=== PATIENT | female | born 1985 | race Caucasian/White ===

== ENCOUNTER 2016-08-04 19:57 | Inpatient (IN) | payer SELFPAY ==
[~2016-08-04] VITALS: Ht 165.1 cm; Wt 59.0 kg
[2016-08-04 20:38] LABS: OBC FLU VALID
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
[2016-08-04] MEDS ORDERED: ACETAMINOPHEN 500 MG TABLET PO ONE (21:30)
[2016-08-04] MEDS ORDERED: IV NORMAL SALINE 1000ML BAG 1,000 ML IV SCH (21:30)
[2016-08-04] MEDS ORDERED: ONDANSETRON PF 4 MG/2 ML VIAL. IV ONE (21:30)
[2016-08-04] MEDS ORDERED: CONTRAST GIVEN MC PRN (21:30)
[2016-08-04] MEDS ORDERED: IOHEXOL 300 MG/ML 75 ML VIAL IV ONE (21:30)
[2016-08-04] MEDS ORDERED: MORPHINE SULFATE 4 MG/ML DISP.SYRIN. IV ONE ×2 (21:30→23:00)
[2016-08-04 21:42] LABS: BILIRUBIN,URINE NEGATIVE (NEG); GLUCOSE,URINE NEGATIVE (NEG); NITRITE,URINE POSITIVE (NEG); PROTEIN,URINE 30 mg/dL (NEG-TRACE)
[2016-08-04 21:51] LABS: BACTERIA,URINE MANY /HPF (0-FEW); RBC,URINE RARE /HPF (0-2); SQUAMOUS EPITHELIAL CELL,UR FEW /LPF; WBC,URINE >40 /HPF (0-4)
[2016-08-04 22:14] LABS: BASO % 1 % (0-3); EOS % 0 % (0-3); LYMPH % 13 % (24-48); MEAN CORPUSCULAR HEMOGLOBIN 35 pg (25-35); MEAN CORPUSCULAR HGB CONC 34 g/dL (31-37); MEAN CORPUSCULAR VOLUME 103 fL (79-100); MONO % 12 % (0-9); NEUT % 74 % (31-73); PLATELET COUNT 38 x10^3/uL (140-400); RED BLOOD COUNT 1.64 x10^6/uL (3.50-5.40); RED CELL DISTRIBUTION WIDTH 17.2 % (11.5-14.5); WHITE BLOOD COUNT 7.1 x10^3/uL (4.0-11.0)
[2016-08-04 22:16] LABS: HEMATOCRIT 16.9 % (36.0-47.0); HEMOGLOBIN 5.8 g/dL (12.0-15.5)
[2016-08-04] MEDS ORDERED: CEFTRIAXONE 1GM IVPB FOR OMNI 50 ML IV ONE (22:30)
[2016-08-04 22:44] LABS: CALCIUM 8.2 mg/dL (8.5-10.1); CREATININE 2.9 mg/dL (0.6-1.0); GFR 19.3; POTASSIUM 5.4 mmol/L (3.5-5.1)
[2016-08-04 22:49] LABS: ALBUMIN 1.9 g/dL (3.4-5.0); ALBUMIN/GLOBULIN RATIO 0.5 (1.0-1.7); TOTAL BILIRUBIN 0.6 mg/dL (0.2-1.0); TOTAL PROTEIN 6.1 g/dL (6.4-8.2)
[2016-08-04 22:55] LABS: ANISOCYTOSIS SLIGHT; HYPOCHROMIA SLIGHT; OVALOCYTES FEW; POIKILOCYTOSIS SLIGHT; TOXIC GRANULATION SLIGHT
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
[2016-08-04] MEDS ORDERED: AZITHRMYCN 500MG IVPB FOR OMNI 250 ML IV ONE (23:55)
[2016-08-05] VITALS (14 sets, daily range): BP systolic 86–133; BP diastolic 39–63
--- NOTE | 2016-08-05 00:30 | ACF ---
Admit Criteria Forms Admit Criteria Forms Admit Criteria Forms ANEMIA Clinical Indications for Inpatient Care (Place 'X' for any and all applicable criteria) Ongoing inpatient care may be needed for anemia with 1 or more of the following (1)(2)(3)(4)(18)(37): [X]I. Severe signs or symptoms unresponsive to transfusion or volume replacement, including ANY ONE of the following: []a) Heart failure []b) Chest pain []c) Myocardial ischemia []d) Exertional dyspnea []e) Syncope []f) Acute peripheral ischemia (eg, pulseless, cool, mottled, or cyanotic extremity) [X]g) Other severe signs or symptoms []II. Cognitive impairment []III. Active hemorrhage []IV.Active hemolysis with rapidly progressive anemia []V. Hemodynamic instability Extended stay beyond goal length of stay for the primary condition may be needed until ALL of the following are present (1)(2)(3)(4): []a) Hemodynamic stability []b) Any active blood loss controlled []c) Severe signs or symptoms resolved []d) Mental status normal or at baseline []e) Stable hemoglobin after transfusion []f) Any underlying disorder or complications of treatment controlled The original [employer] content created by [employer] has been revised. The portions of the content which have been revised are identified through the use of italic text or in bold, and [employer] has neither reviewed nor approved the modified material. All other unmodified content is copyright [employer]. Please see references footnoted in the original [employer] edition 2016 SHAYY SETHI Aug 05, 2016 00:30
[2016-08-05] MEDS: IV NORMAL SALINE 1000ML BAG 1,000 ML IV SCH ×4 (07:31→16:36)
[2016-08-05] MEDS: ACETAMINOPHEN 325 MG TABLET. PO PRN ×2 (07:41→23:34)
[2016-08-05] MEDS: MORPHINE SULFATE 4 MG/ML DISP.SYRIN. IV PRN ×5 (07:41→23:34)
[2016-08-05 10:22] LABS: BARBITURATES NEG (NEG); BENZODIAZEPINES NEG (NEG); CANNABINOIDS NEG (NEG); COCAINE NEG (NEG); METHADONE POS (NEG); OPIATES POS (NEG); PHENCYCLIDINE NEG (NEG)
[2016-08-05 10:40] LABS: ETHANOL, URINE NEG (NEG)
[2016-08-05 11:00] LABS: BASO # 0.1 x10^3/uL (0.0-0.2); BASO % 1 % (0-3); EOS % 0 % (0-3); HEMATOCRIT 26.1 % (36.0-47.0); HEMOGLOBIN 8.9 g/dL (12.0-15.5); LYMPH # 0.5 x10^3/uL (1.0-4.8); LYMPH % 6 % (24-48); MEAN CORPUSCULAR HEMOGLOBIN 32 pg (25-35); MEAN CORPUSCULAR HGB CONC 34 g/dL (31-37); MEAN CORPUSCULAR VOLUME 95 fL (79-100); MONO % 7 % (0-9); NEUT % 86 % (31-73); PLATELET COUNT 35 x10^3/uL (140-400); RED BLOOD COUNT 2.74 x10^6/uL (3.50-5.40); RED CELL DISTRIBUTION WIDTH 22.3 % (11.5-14.5); WHITE BLOOD COUNT 9.3 x10^3/uL (4.0-11.0)
[2016-08-05 11:10] LABS: CALCIUM 8.5 mg/dL (8.5-10.1); CREATININE 2.7 mg/dL (0.6-1.0); POTASSIUM 4.8 mmol/L (3.5-5.1)
[2016-08-05] MEDS ORDERED: ACETAMINOPHEN 325 MG TABLET. PO PRN (11:15)
[2016-08-05] MEDS ORDERED: ONDANSETRON PF 4 MG/2 ML VIAL. IV PRN ×2 (11:15)
[2016-08-05 12:41] LABS: ALBUMIN 1.7 g/dL (3.4-5.0); DIRECT BILIRUBIN 0.4 mg/dL (0.0-0.2); TOTAL BILIRUBIN 0.7 mg/dL (0.2-1.0); TOTAL PROTEIN 6.4 g/dL (6.4-8.2)
--- NOTE | 2016-08-05 12:50 | EKG ---
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
[2016-08-05] MEDS ORDERED: MAGNESIUM HYDROXIDE 2,400 MG/30 ML ORAL.SUSP. PO PRN (13:15)
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
[2016-08-05 13:49] LABS: INR 1.3 (0.8-1.1)
[2016-08-05 14:19] LABS: NEGATIVE OBC MONO NEG; POSITIVE OBC MONO POS
[2016-08-05] MEDS: PANTOPRAZOLE 40 MG TABLET. PO SCH (14:52)
[2016-08-05] MEDS: CEFTRIAXONE SODIUM 1 GM in IV NORMAL SALINE 50ML 50 ML IV SCH (14:53)
[2016-08-05] MEDS: OXYCODONE/APAP 5/325 TABLET. PO PRN (15:07)
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
[2016-08-06] VITALS (7 sets, daily range): BP systolic 84–120; BP diastolic 48–70
[2016-08-06] MEDS: IV NORMAL SALINE 1000ML BAG 1,000 ML IV SCH ×2 (04:22→17:15)
[2016-08-06 05:23] LABS: BASO % 1 % (0-3); EOS % 1 % (0-3); HEMATOCRIT 24.2 % (36.0-47.0); HEMOGLOBIN 8.2 g/dL (12.0-15.5); LYMPH # 1.2 x10^3/uL (1.0-4.8); LYMPH % 16 % (24-48); MEAN CORPUSCULAR HEMOGLOBIN 32 pg (25-35); MEAN CORPUSCULAR HGB CONC 34 g/dL (31-37); MEAN CORPUSCULAR VOLUME 96 fL (79-100); MONO % 9 % (0-9); NEUT % 73 % (31-73); PLATELET COUNT 33 x10^3/uL (140-400); RED BLOOD COUNT 2.53 x10^6/uL (3.50-5.40); RED CELL DISTRIBUTION WIDTH 22.9 % (11.5-14.5); WHITE BLOOD COUNT 7.2 x10^3/uL (4.0-11.0)
[2016-08-06 05:52] LABS: CALCIUM 8.1 mg/dL (8.5-10.1); CREATININE 2.2 mg/dL (0.6-1.0); GFR 26.6; POTASSIUM 5.1 mmol/L (3.5-5.1)
[2016-08-06] MEDS: PANTOPRAZOLE 40 MG TABLET. PO SCH (08:42)
[2016-08-06] MEDS: OXYCODONE/APAP 5/325 TABLET. PO PRN ×3 (08:50→18:08)
--- NOTE | 2016-08-06 09:21 | PDOC ---
Subjective: Subjective: Onc f/u- Cytopenias Pt frantic this AM, states she normally goes to methadone clinic, is withdrawing. Wants to DC. States she has to go to work and methadone clinic. SOB continues. Palpitations. Agitated. Objective: Vital Signs: Vital Signs Date Time Temp Pulse Resp B/P Pulse Ox O2 Delivery O2 Flow Rate FiO2 08/06/16 08:50 Room Air 08/06/16 03:24 98.5 80 20 98/56 95 98.5 08/05/16 20:00 2.0 Physical Exam: Extremities: No edema General: Alert, Oriented X3, moderate distress (due to withdrawl from methadone ) Lungs: Other (tachypnea with withdrawl) Psych/Mental Status: Other (anxious, agitated) Labs/Imaging: CBC stable Hgb 5.8 --> 8.9 Plt 38 stable INR, fibrinogen doesn't indicate hemolysis No previous CBC at [facility] U/S- 14.5 cm spleen Assessment/Plan A/P: 1. Anemia s/p transfusion 2 units PRBC 08/05- stable 2. Thrombocytopenia- stable 3. Chronic HCV infection 4. Hepatosplenomegaly 5. VERNON 6. Bilateral pneumonia 7. E coli UTI 9. Methadone addiction, currently with likely withdrawal symptoms Cytopenias likely multifactorial with hepatosplenomegaly, HCV, acute infections. Pt states she has to leave today; very frantic to get to methadone clinic. Plan: - F/u pending HIV, legionella, B12, folate testing - F/u pending ID consult. Pt requesting po abx to DC today. - D/w Dr. Mcgovern re: methadone use, withdrawal. [facility] consult placed to verify her admission with her methadone clinic. - Ideally would repeat CBC in 2 weeks, but pt uninsured, will not f/u. DONY OWUSU DO Aug 06, 2016 09:21
--- NOTE | 2016-08-06 10:01 | PDOC ---
Subjective: Subjective: Abd pain, back pain, chest pain. Objective: Objective: Per [facility] - to restart methadone. Reviewed other notes. Vital Signs: Vital Signs Date Time Temp Pulse Resp B/P Pulse Ox O2 Delivery O2 Flow Rate FiO2 08/06/16 08:50 Room Air 08/06/16 07:00 98.5 84 20 114/65 89 98.5 08/05/16 20:00 2.0 Labs: Laboratory Tests Test 08/05/16 10:00 08/05/16 10:44 08/05/16 13:10 08/06/16 05:05 Urine Opiates Screen Pos Urine Methadone Screen Pos Urine Barbiturates Neg Urine Phencyclidine Screen Neg Urine Amphetamine/Methamphetamine Neg Urine Benzodiazepines Screen Neg Urine Cocaine Screen Neg Urine Cannabinoids Screen Neg Urine Ethyl Alcohol Neg White Blood Count 9.3x10^3/uL 7.2x10^3/uL Red Blood Count 2.74x10^6/uL 2.53x10^6/uL Hemoglobin 8.9g/dL 8.2g/dL Hematocrit 26.1% 24.2% Mean Corpuscular Volume 95fL 96fL Mean Corpuscular Hemoglobin 32pg 32pg Mean Corpuscular Hemoglobin Concent 34g/dL 34g/dL Red Cell Distribution Width 22.3% 22.9% Platelet Count 35x10^3/uL 33x10^3/uL Neutrophils (%) (Auto) 86% 73% Lymphocytes (%) (Auto) 6% 16% Monocytes (%) (Auto) 7% 9% Eosinophils (%) (Auto) 0% 1% Basophils (%) (Auto) 1% 1% Neutrophils # (Auto) 8.0x10^3uL 5.3x10^3uL Lymphocytes # (Auto) 0.5x10^3/uL 1.2x10^3/uL Monocytes # (Auto) 0.7x10^3/uL 0.7x10^3/uL Eosinophils # (Auto) 0.0x10^3/uL 0.0x10^3/uL Basophils # (Auto) 0.1x10^3/uL 0.0x10^3/uL Reticulocyte Count (auto) 0.2% Sodium Level 137mmol/L 139mmol/L Potassium Level 4.8mmol/L 5.1mmol/L Chloride Level 106mmol/L 108mmol/L Carbon Dioxide Level 23mmol/L 21mmol/L Anion Gap 8 10 Blood Urea Nitrogen 54mg/dL 36mg/dL Creatinine 2.7mg/dL 2.2mg/dL Estimated GFR (Cockcroft-Gault) 21.0 26.6 Glucose Level 98mg/dL 80mg/dL Calcium Level 8.5mg/dL 8.1mg/dL Total Bilirubin 0.7mg/dL Direct Bilirubin 0.4mg/dL Aspartate Amino Transf (AST/SGOT) 17U/L Alanine Aminotransferase (ALT/SGPT) 17U/L Alkaline Phosphatase 154U/L Lactate Dehydrogenase 192U/L Total Protein 6.4g/dL Albumin 1.7g/dL Heterophil Agglutinins Negative Prothrombin Time 15.0SEC Prothromb Time International Ratio 1.3 Activated Partial Thromboplast Time 29SEC Fibrinogen 603mg/dL PE: GEN: NAD LUNGS: clear anteriorly HEART: RRR ABD: BS quiet, non-tender for my exam NEURO/PSYCH: A & O 3, nervous A/P: Anemia, thrombocytopenia -heme following: pending HIV, legionella, B12, folate H/o Hep C - incompletely treated -on methadone, says recovering heroin addict Constipation - recent onset -will add Miralax and Amitiza Abd pain -also reports back and chest pain -lipase WNL, on PPI -CT w/o contrast: splenomegaly; previous US per heme notes VERNON, pneumonia, UTI -- Add Miralax, Amitiza for constipation. Await additional labs. DEEPTI CHAPARRO Aug 06, 2016 10:01
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
[2016-08-06] MEDS: METHADONE 10 MG TABLET. PO SCH (10:39)
[2016-08-06] MEDS: POLYETHYLENE GLYCOL 3350 17 GM PACKET. PO SCH (10:39)
[2016-08-06 11:46] LABS: FOLATE 9.52 ng/ml (3.2-20.0)
[2016-08-06] MEDS: CEFTRIAXONE SODIUM 1 GM in IV NORMAL SALINE 50ML 50 ML IV SCH (15:05)
[2016-08-06] MEDS: LUBIPROSTONE 8 MCG CAPSULE PO SCH (18:08)
[2016-08-06 23:11] LABS: HEP A IGM ABDY Negative (Negative)
[2016-08-06 23:11] LABS: HEP A IGM ABDY Negative (Negative); HEP B SURFACE ABDY Reactive (.)
[2016-08-07] VITALS (8 sets, daily range): BP systolic 99–125; BP diastolic 54–80
[2016-08-07] MEDS: OXYCODONE/APAP 5/325 TABLET. PO PRN (03:01)
[2016-08-07] MEDS: IV NORMAL SALINE 1000ML BAG 1,000 ML IV SCH ×2 (03:15→13:15)
[2016-08-07 05:16] LABS: BASO # 0.1 x10^3/uL (0.0-0.2); BASO % 1 % (0-3); EOS % 0 % (0-3); HEMATOCRIT 24.7 % (36.0-47.0); HEMOGLOBIN 8.4 g/dL (12.0-15.5); LYMPH # 1.4 x10^3/uL (1.0-4.8); LYMPH % 20 % (24-48); MEAN CORPUSCULAR HEMOGLOBIN 33 pg (25-35); MEAN CORPUSCULAR HGB CONC 34 g/dL (31-37); MEAN CORPUSCULAR VOLUME 96 fL (79-100); MONO % 7 % (0-9); NEUT % 72 % (31-73); PLATELET COUNT 33 x10^3/uL (140-400); RED BLOOD COUNT 2.57 x10^6/uL (3.50-5.40); RED CELL DISTRIBUTION WIDTH 22.4 % (11.5-14.5)
[2016-08-07 05:44] LABS: CALCIUM 8.3 mg/dL (8.5-10.1); CREATININE 1.9 mg/dL (0.6-1.0); GFR 31.5; POTASSIUM 4.3 mmol/L (3.5-5.1)
[2016-08-07] MEDS: POLYETHYLENE GLYCOL 3350 17 GM PACKET. PO SCH (09:00)
[2016-08-07] MEDS ORDERED: LIDOCAINE 1% / SOD BICARB 8.4% 20 ML VIAL. IJ ONE ×2 (09:07→13:00)
--- NOTE | 2016-08-07 10:15 | PDOC ---
Subjective: Subjective: Onc f/u- Cytopenias Pt still wanting to DC. No issues overnight. More relaxed now that back on methadone. Objective: Vital Signs: Vital Signs Date Time Temp Pulse Resp B/P Pulse Ox O2 Delivery O2 Flow Rate FiO2 08/07/16 07:00 98.3 88 18 114/62 96 Room Air 98.3 08/07/16 03:01 2.0 Physical Exam: Extremities: No edema General: Alert, Oriented X3, Cooperative, No acute distress Lungs: Other (no resp dsitress) Psych/Mental Status: Mental status NL, Mood NL Skin: No rashes Labs/Imaging: CBC unchanged HIV, legionella, b12, folate neg Assessment/Plan A/P: 1. Anemia s/p transfusion 2 units PRBC 08/05- stable 2. Thrombocytopenia- stable 3. Chronic HCV infection 4. Hepatosplenomegaly 5. VERNON 6. Bilateral pneumonia 7. E coli UTI 8. Methadone addiction, attends clinic as outpt Cytopenias likely multifactorial with hepatosplenomegaly, HCV, acute infections. However, eval as outpt will be very limited due to insurance status. Would prefer to be thorough and proceed with bmbx as inpt. Plan: - Bmbx tomorrow, pt drank this AM. - Outpt HCV tx? Defer to GI. - Suspect no underlying bmbx path however so when stabilizes from others' standpoints, ok with me to DC and I can call her with results. DONY OWUSU DO Aug 07, 2016 10:15
[2016-08-07] MEDS: PANTOPRAZOLE 40 MG TABLET. PO SCH (10:26)
[2016-08-07] MEDS: METHADONE 10 MG TABLET. PO SCH (10:27)
[2016-08-07] MEDS: LUBIPROSTONE 8 MCG CAPSULE PO SCH (10:27)
--- NOTE | 2016-08-07 11:55 | PDOC ---
Subjective: Subjective: Feels better. Plans to DC after bone marrow biopsy. Had BM. Says previously started Hep C treatment at a free clinic in [place]. Objective: Vital Signs: Vital Signs Date Time Temp Pulse Resp B/P Pulse Ox O2 Delivery O2 Flow Rate FiO2 08/07/16 11:00 98.8 74 17 117/74 96 Room Air 98.8 08/07/16 03:01 2.0 Labs: Laboratory Tests Test 08/07/16 05:00 White Blood Count 7.0x10^3/uL Red Blood Count 2.57x10^6/uL Hemoglobin 8.4g/dL Hematocrit 24.7% Mean Corpuscular Volume 96fL Mean Corpuscular Hemoglobin 33pg Mean Corpuscular Hemoglobin Concent 34g/dL Red Cell Distribution Width 22.4% Platelet Count 33x10^3/uL Neutrophils (%) (Auto) 72% Lymphocytes (%) (Auto) 20% Monocytes (%) (Auto) 7% Eosinophils (%) (Auto) 0% Basophils (%) (Auto) 1% Neutrophils # (Auto) 5.1x10^3uL Lymphocytes # (Auto) 1.4x10^3/uL Monocytes # (Auto) 0.5x10^3/uL Eosinophils # (Auto) 0.0x10^3/uL Basophils # (Auto) 0.1x10^3/uL Sodium Level 138mmol/L Potassium Level 4.3mmol/L Chloride Level 106mmol/L Carbon Dioxide Level 19mmol/L Anion Gap 13 Blood Urea Nitrogen 22mg/dL Creatinine 1.9mg/dL Estimated GFR (Cockcroft-Gault) 31.5 Glucose Level 77mg/dL Calcium Level 8.3mg/dL PE: GEN: NAD LUNGS: CTAB HEART: RRR ABD: NABS, S/ND/NT NEURO/PSYCH: A & O 3 A/P: Anemia, thrombocytopenia -heme following -low retic count, to have bone marrow bx today H/o Hep C -reports started but did not complete treatment at free clinic in [place] -hepatosplenomegaly on CT Constipation - resolved Abd pain - resolved -- Discussed Hep C treatment - she says she plans to return to the same clinic in [place] for this. DEEPTI CHAPARRO Aug 07, 2016 11:55
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
[2016-08-07] MEDS ORDERED: NALOXONE 0.4 MG/ML VIAL. ONE (12:31)
[2016-08-07] MEDS ORDERED: MIDAZOLAM HCL/PF 5 MG/5 ML VIAL ONE (12:31)
[2016-08-07] MEDS ORDERED: FENTANYL PF 250 MCG/5 ML VIAL. ONE (12:31)
[2016-08-07] MEDS ORDERED: FLUMAZENIL 0.5 MG/5 ML VIAL. IV ONE (12:31)
[2016-08-07] MEDS ORDERED: MIDAZOLAM HCL/PF 5 MG/5 ML VIAL IV ONE (13:00)
[2016-08-07] MEDS ORDERED: FENTANYL PF 250 MCG/5 ML VIAL. IV ONE (13:00)
--- NOTE | 2016-08-07 13:03 | PDOC ---
MODERATE SEDATION ASSESSMENT RISKS/ALTERNATIVES Risks/Alternatives Risks and alternatives of this type of sedation and procedure discussed with: RISK/ALTERNATIVES: Patient H & P ON CHART H & P H & P on chart and reviewed for co-morbid conditions and appropriate labs. H&P ON CHART: Yes STATUS PREG STATUS ASSESSED: Yes MEDS/ALLERGIES REVIEWED Meds/Allergies Reviewed Medications and Allergies including time and route of recently administered narcotics and sedatives. MEDS/ALLERGIES REVIEWED: Yes ASA RATING ASA RATING: I AIRWAY ASSESSMENT Airway Assessment Airway patency, oral function limitations, presence of caps, crowns, dentures, partials, and ability to extend neck assessed. AIRWAY ASSESSMENT: Yes MALLAMPATI SCORE MALLAMPATI SCORE: II PRE-SEDATION ASSESSMENT PRE-SEDATION ASSESSMENT: Yes JUDITH LITTLEJOHN MD Aug 07, 2016 13:03
--- NOTE | 2016-08-07 13:06 | PDOC ---
Exam Repair Servicer Repair Servicer Jessi [employer] Equipment Operator [employer] Equipment Operator Dayne Lemus Pre-Procedure Diagnosis Pre-Procedure Diagnosis 30 YO female with pancytopenia Post-Procedure Diagnosis Post-Procedure Diagnosis Same Procedure Performed Procedure Performed CT guided bone marrow asp/bx Type of Anesthesia Type of Anesthesia Local + mod sedation Estimated Blood Loss EBL: Minimal Specimens Specimans 6 cc bone marrow aspirate + 1 11G core bx ------to heme-path Condition of Patient Condition of Patient Stable. No apparent complication. Disposition Disposition From IR/CT return to 538. F/u with Dr Seo. Full report to follow. JUDITH LITTLEJOHN MD Aug 07, 2016 13:05
[2016-08-07 13:39] LABS: PLT ESTIMATE DECREASED (ADEQUATE)
[2016-08-07] MEDS: CEFTRIAXONE SODIUM 1 GM in IV NORMAL SALINE 50ML 50 ML IV SCH (15:00)
--- NOTE | 2016-08-08 07:15 | RAD ---
CT-guided power drill assisted bone marrow aspiration and biopsy Indication: 30-year-old female with pancytopenia. Image guided bone marrow evaluation requested by hematology-oncology. Anesthesia: 50 minutes moderate sedation was provided utilizing a total of 4 mg Versed and 200 mcg fentanyl, IV. The patient was appropriately monitored by a qualified independent observer throughout the time of moderate sedation. Procedure: Informed consent was obtained from the patient. She was placed prone on the CT scanner. Preliminary noncontrast CT images were obtained through pelvis. A left posterior skin site suitable for CT-guided bone marrow aspirate/biopsy from posterior left iliac bone was selected and marked. That area was prepped and draped in the usual sterile fashion. Conscious sedation was provided with IV Versed and fentanyl. Using aseptic technique, local anesthesia, and CT guidance, and the [employer] power driver salesman, successful percutaneous entry was achieved through posterior cortex of left iliac bone. Approximately 6 cc of bone marrow was promptly aspirated, and was submitted to hematology personnel in the CT suite. Using CT guidance, the [employer] power driver salesman was then utilized to obtain a single, 11-gauge core biopsy sample from marrow cavity of left iliac bone. The biopsy sample was submitted to pathology in formalin. A sterile dressing was applied over the biopsy skin puncture site. Patient tolerated the procedure well without apparent complication. Impression: Successful, uneventful CT-guided bone marrow aspirate and biopsy, utilizing the [employer] power driver salesman biopsy system, as described. PQRS compliance statement: One or more of the following individualized dose reduction techniques were utilized for this CT procedure: 1. Automated exposure control. 2. Adjustment of MA and/or KV according to patient size. 3. Iterative reconstruction technique.
== END 2016-08-07 16:10 | disposition home or self-care (01) | DRG 808 ==
LOC: ER 19:57 → 5 NORTH 23:55
PROVIDERS: ADMIT Internal Medicine; ATTEND Internal Medicine
PROC: 30233R1 Transfusion of Nonautologous Platelets into Peripheral Vein, Percutaneous Approach (ICD-10-PCS; 2016-08-04)
PROC: 30233N1 Transfusion of Nonautologous Red Blood Cells into Peripheral Vein, Percutaneous Approach (ICD-10-PCS; 2016-08-04)
PROC: 07DR3ZX Extraction of Iliac Bone Marrow, Percutaneous Approach, Diagnostic (ICD-10-PCS; principal; 2016-08-07)
DX: D61.818 Other pancytopenia (principal); N17.0 Acute kidney failure with tubular necrosis; E43 Unspecified severe protein-calorie malnutrition; J18.9 Pneumonia, unspecified organism; N39.0 Urinary tract infection, site not specified; F11.20 Opioid dependence, uncomplicated; R65.10 Systemic inflammatory response syndrome (SIRS) of non-infectious origin without acute organ dysfunction; K29.70 Gastritis, unspecified, without bleeding; B96.20 Unspecified Escherichia coli [E. coli] as the cause of diseases classified elsewhere; B18.2 Chronic viral hepatitis C; D64.9 Anemia, unspecified; D69.6 Thrombocytopenia, unspecified; E87.5 Hyperkalemia; K59.00 Constipation, unspecified; M54.9 Dorsalgia, unspecified; F41.9 Anxiety disorder, unspecified; Z68.21 Body mass index [BMI] 21.0-21.9, adult; Z88.8 Allergy status to other drugs, medicaments and biological substances
CPT/HCPCS: 36415; 38221; 71250; 74176; 77012; 80048; 80053; 80074; 80076; 81001; 81025; 82607; 82746; 83605; 83615; 83690; 84484; 85007; 85027; 85045; 85384; 85610; 85730; 86308; 86703; 86704; 86706; 86850; 86900; 86901; 86920; 87040; 87086; 87186; 87205; 87449; 87804; 88184; 88185; 88237; 93005; 96374; 96375; 96376; G0364; G0481; J0456; J0690; J0696; J2250; J2270; J2405; J3010; J7030; P9016; 99285-25

== ENCOUNTER 2018-12-30 19:39 | Inpatient (IN) | payer SELFPAY ==
[2018-12-30] VITALS (8 sets, daily range): BP systolic 107–125; BP diastolic 59–70
[~2018-12-30] VITALS: Ht 165.1 cm; Wt 61.7 kg
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
[2018-12-30] MEDS ORDERED: PIP/TAZO PER PHARMACY MC PRN (23:15)
[2018-12-31] VITALS (21 sets, daily range): BP systolic 93–136; BP diastolic 50–79
[2018-12-31] MEDS: ACETAMINOPHEN 325 MG TABLET. PO PRN ×3 (00:26→18:34)
[2018-12-31] MEDS: HYDROmorphone 2 MG/ML VIAL IV PRN ×7 (00:28→21:10)
[2018-12-31] MEDS: VANCOMYCIN 1 GM in IV NORMAL SALINE 250ML 250 ML IV SCH ×2 (01:20→13:21)
[2018-12-31] MEDS: VANCOMYCIN PER PHARMACY MC PRN ×2 (01:58→13:53)
--- NOTE | 2018-12-31 01:58 | NUR ---
Pharmacy Vancomycin Dosing Note S:Consulted to monitor and dose vancomycin started 12/27/18. O:SUSIE SO is a 33 year old F with Pneumonia POSSIBLE ENDOCARDITIS . Height: 5 feet, 5 inches Weight: 56.295760 kg [place] Body Weight: 57.00 Adjusted Body Weight: 56.60 Dosing Weight: Actual Other Antibiotics: ZOSYN 3.375 GM Q6H LABS: Last BUN: 8 Last Creatinine: 1.1 Creatinine Clearance: 66 mL/min Last WBC: 10.5 Last Procalcitonin: Tmax (past 24 hours): Microbiology: I/O: Drug Levels: Last Trough level: 6.3 on 12/29/18 at 0745 Last dose given 12/31/18 at 0100 Vancomycin Dosing: Loading Dose: TRANSFER [facility] x1 Dosing Weight: Actual Target Trough: 15-20 A: Based on: [facility] LABS AND DOSING P: 1. Continue Vancomycin 1000 mg IV q12h 2. Follow up Trough level on 12/31/18 at 1230 3. Pharmacy will continue to monitor, follow and adjust therapy as needed. SHAGGY CANTU RPH, 12/31/18 0158 Signed: 12/31/18 at 0158 by SHAGGY CANTU RPH PHA
--- NOTE | 2018-12-31 03:58 | NUR ---
Dr. Rodriguez called to check on pt. Dr. Rodriguez updated on pt status and informed of changes. Dr. Rodriguez gave consent for blood draw out of patient PICC to fulfill AM labs. Also, Dr. Rodriguez ordered NS IVF at 100 mL/hr for pt. Will continue to assess and monitor for change in pt condition.
[2018-12-31] MEDS: IV NORMAL SALINE 1000ML BAG 1,000 ML IV SCH ×2 (04:17→17:00)
[2018-12-31] MEDS: PIPERACILLIN/TAZOBACTAM 3.375 GM in IV NORMAL SALINE 50ML 50 ML IV SCH ×3 (06:54)
[2018-12-31 07:23] LABS: BASO # 0.1 x10^3/uL (0.0-0.2); BASO % 1 % (0-3); EOS % 0 % (0-3); LYMPH # 1.7 x10^3/uL (1.0-4.8); LYMPH % 21 % (24-48); MEAN CORPUSCULAR HEMOGLOBIN 33 pg (25-35); MEAN CORPUSCULAR HGB CONC 35 g/dL (31-37); MEAN CORPUSCULAR VOLUME 94 fL (79-100); MONO # 0.7 x10^3/uL (0.0-1.1); MONO % 8 % (0-9); NEUT # 5.9 x10^3/uL (1.8-7.7); NEUT % 70 % (31-73); PLATELET COUNT 101 x10^3/uL (140-400); RED BLOOD COUNT 1.87 x10^6/uL (3.50-5.40); RED CELL DISTRIBUTION WIDTH 18.8 % (11.5-14.5); WHITE BLOOD COUNT 8.4 x10^3/uL (4.0-11.0)
[2018-12-31 07:28] LABS: HEMATOCRIT 17.6 % (36.0-47.0); HEMOGLOBIN 6.1 g/dL (12.0-15.5)
[2018-12-31 07:32] LABS: ALBUMIN 1.3 g/dL (3.4-5.0); ALBUMIN/GLOBULIN RATIO 0.3 (1.0-1.7); CALCIUM 7.7 mg/dL (8.5-10.1); GFR 64.7; POTASSIUM 3.7 mmol/L (3.5-5.1); TOTAL BILIRUBIN 0.4 mg/dL (0.2-1.0); TOTAL PROTEIN 5.7 g/dL (6.4-8.2)
--- NOTE | 2018-12-31 07:39 | HP ---
ADMIT DATE: 12/30/2018 HISTORY OF PRESENT ILLNESS: The patient is a 33-year-old female patient who was admitted to [facility] on 12/27/2018 with fever and severe generalized body aches, pleuritic-type chest pain. The patient stated that this has been going on for a few days. She stated that she was treated for pneumonia a few weeks ago and she was prior to that in the hospital with miscarriage and since she had some vaginal bleed at that time that has stopped. She stated that she does continue to smoke tobacco. She has been a drug user in the past and was positive for hepatitis C. She was seen in [facility] where she was treated with a CT scan of the chest showed that she has multilobar infiltrate consistent with pneumonia; however, according to the patient, she was told that mostly her pneumonia has resolved and she was given antibiotic to continue treatment as an outpatient. I did eventually manage to get the report of that CT scan, which showed that she has multifocal pneumonia and that was dated on 12/08/2018. The patient was admitted with multifocal pneumonia. We did start her on Zosyn and vancomycin. She was found also to have multitude of other medical problems including anemia, thrombocytopenia, hypokalemia. Her C-reactive protein and sedimentation rate were extremely high. While at [facility], she continued to spike her temperature up to 102. We did send blood for culture that grown gram-positive cocci in clusters, although the identification and sensitivity is still pending at the time of this dictation. We did start her on vancomycin and Zosyn. Despite that, she continued to spike her temperature. In fact, yesterday she became more short of breath, tachypneic, tachycardic, hypoxic. Her oxygen saturation was down to 84% on room air. Therefore, she was started on oxygen and her pain becomes more severe, so we switched her to hydromorphone. I did repeat a CT scan and CT angiography of chest did show that the patient has multifocal nodular areas of airspace consolidation measuring up to 14 x 12 mm in the left upper lobe, may represent multifocal pneumonia versus septic emboli versus neoplastic etiology, i.e., metastatic disease, although this is favored to be less likely in this age group. Consideration may be given for atypical fungal or fungal organisms like histoplasmosis. The patient has also moderate right and small pleural effusion with adjacent compressive atelectasis versus pulmonary infiltrate. She has also mild ground glass changes with interlobular septal thickening in the right upper lobe that represents pulmonary edema versus pulmonary hemorrhage versus pulmonary infiltrates. She has also mediastinal and right hilar lymphadenopathy may be reactive and there is no evidence of acute or chronic pulmonary emboli. We did x-ray and echocardiogram, which did not explicitly state that there are no vegetation; however, her left ventricular systolic function is normal. Her ejection fraction estimated at 60% to 65%. She has normal left ventricular segmental wall motion, [id number] mitral regurgitation, moderate tricuspid regurgitation. There is moderate pulmonary hypertension. The pulmonary artery pressure was estimated at 58 mmHg. There is no evidence of significant pericardial effusion. Because of all of these, the patient was transferred to [facility] to consult the poultry scientist and the Infectious Disease specialist as she probably might require also changes in her antibiotic or broadening the antibiotic, and although she has grown gram-positive cocci, she continued to spike her temperature despite vancomycin. PAST MEDICAL HISTORY: Significant for chronic hepatitis C. She is known to have anxiety and polysubstance abuse. She has also chronic normochromic normocytic anemia. She was admitted in 2018 for abscess/cellulitis left ankle joint that was treated with incision and drainage. FAMILY HISTORY: Noncontributory. SOCIAL HISTORY: She apparently lives with her friend. According to her, she smokes 2 cigarettes a day, does not drink alcohol; however, she is positive for methadone and opiates. She is currently unemployed and apparently has no children. ALLERGIES: SHE IS ALLERGIC TO PAXIL. REVIEW OF SYSTEMS: As per history of present illness. MEDICATIONS: She was transferred to [facility] to continue on hydromorphone 1 mg IV every 2 hours, lactobacillus rhamnosus 1 capsule twice a day, vancomycin 1 gram IV q.12 hourly, piperacillin/tazobactam 3.375 grams IV every 6 hours as well as lorazepam 1 mg every 4 hours and acetaminophen 650 mg every 6 hours. PHYSICAL EXAMINATION: GENERAL: When I examined her this morning, the patient was resting flat in bed, slightly tachypneic, but not jaundiced, cyanosis or thyromegaly. No jugular venous distention. No limb edema. VITAL SIGNS: Her heart rate was 105, blood pressure was 110/50. Her temperature was 101, respiratory rate was 25, oxygen saturation was 95% on 4 liters of oxygen. HEAD, EYES, EARS, NOSE AND THROAT: Normocephalic, atraumatic. NECK: Supple. HEART: Showed normal first and second heart sounds with no gallop, rub or murmur. CHEST: Clear to auscultation. No crepitation or rhonchi. ABDOMEN: Scaphoid, soft, nontender. NEUROLOGIC: She was stable, but arousable. All cranial nerves intact. EXTREMITIES: She moves extremities without difficulty. LABORATORY DATA: Her lab works are still pending at the time of this dictation. However, her lab work yesterday prior to the transfer to [facility] showed her white cell count was 10,500, hemoglobin 7.2, hematocrit 21.6, MCV 95, and platelet count of 103,000 with normal manual differential. Her blood gases showed a pH of 7.47, pCO2 of 28, pO2 of 85, bicarbonate 20, and oxygen saturation was 97% on FiO2 of 37%. Her prothrombin time was 10.2, INR of 1. Her chemistry prior to transfer to [facility] showed a serum sodium 136, potassium 3.6, chloride 102, bicarbonate 23, anion gap of 11, BUN 8, creatinine 1.1, estimated GFR was 58 mL/min. Her glucose was 102, calcium was 7.9. Total bilirubin, AST, ALT, alkaline phosphatase were normal. Total protein was 6.2, albumin was 1.6. Her toxic screen was positive for opiates and methadone. However, her serum test was negative. ASSESSMENT AND PLAN: In summary, this is a 33-year-old female patient who was transferred from [facility] with: 1. Acute hypoxic respiratory failure. 2. Multifocal pneumonia. 3. She did grow gram-positive cocci, for which she was on IV vancomycin and Zosyn; however, she continued to spike her temperature despite that. 4. Her echocardiogram showed no evidence of endocarditis and this was transthoracic. 5. A repeat CT scan showed no evidence of pulmonary emboli; however, it shows again multifocal nodular areas of airspace consolidation measuring up to 14 x 12 mm and the left upper lobe that may represents multifocal pneumonia versus septic emboli versus neoplastic etiology that is felt less likely at this age group and consideration will be given for atypical or fungal organisms such as histoplasmosis. She does have also moderate right and small left pleural effusion with adjacent compressive atelectasis versus pulmonary infiltrate. PLAN: My plan is to continue with current antibiotic. I have consulted the poultry scientist as well as the Infectious Disease as she probably might require addition of antifungal, perhaps antibiotics for atypical organisms. FABY DAWSON MD DR: TANIA/christ JOB#: [id number] / [id number]
--- NOTE | 2018-12-31 08:16 | NUR ---
SS following for discharge planning. SS reviewed pt chart. Pt is self pay pt. HCFS following for self pay status. Pt is from home with a friend and is currently requiring oxygen. No discharge needs noted at this time. SS will continue to follow for discharge planning.
[2018-12-31] MEDS: LACTOBACILLUS RHAMNOSUS GG 1 CAPSULE. PO SCH ×2 (09:00→21:08)
--- NOTE | 2018-12-31 09:23 | PDOC ---
Infectious Disease Note Vital Sign Vital Signs Vital Signs Date Time Temp Pulse Resp B/P (MAP) Pulse Ox O2 Delivery O2 Flow Rate FiO2 12/31/18 06:00 90 25 106/50 (68) 98 Nasal Cannula 4.0 12/31/18 04:00 99.0 99.0 Physical Exam PHYSICAL EXAM [facility] (12/29) Labs Lab Laboratory Tests Test 12/31/18 05:00 12/31/18 06:00 Procalcitonin 0.73 ng/mL (0.00-0.10) White Blood Count 8.4 x10^3/uL (4.0-11.0) Red Blood Count 1.87 x10^6/uL (3.50-5.40) Hemoglobin 6.1 g/dL (12.0-15.5) Hematocrit 17.6 % (36.0-47.0) Mean Corpuscular Volume 94 fL (79-100) Mean Corpuscular Hemoglobin 33 pg (25-35) Mean Corpuscular Hemoglobin Concent 35 g/dL (31-37) Red Cell Distribution Width 18.8 % (11.5-14.5) Platelet Count 101 x10^3/uL (140-400) Neutrophils (%) (Auto) 70 % (31-73) Lymphocytes (%) (Auto) 21 % (24-48) Monocytes (%) (Auto) 8 % (0-9) Eosinophils (%) (Auto) 0 % (0-3) Basophils (%) (Auto) 1 % (0-3) Neutrophils # (Auto) 5.9 x10^3/uL (1.8-7.7) Lymphocytes # (Auto) 1.7 x10^3/uL (1.0-4.8) Monocytes # (Auto) 0.7 x10^3/uL (0.0-1.1) Eosinophils # (Auto) 0.0 x10^3/uL (0.0-0.7) Basophils # (Auto) 0.1 x10^3/uL (0.0-0.2) Sodium Level 139 mmol/L (136-145) Potassium Level 3.7 mmol/L (3.5-5.1) Chloride Level 106 mmol/L (98-107) Carbon Dioxide Level 22 mmol/L (21-32) Anion Gap 11 (6-14) Blood Urea Nitrogen 12 mg/dL (7-20) Creatinine 1.0 mg/dL (0.6-1.0) Estimated GFR (Cockcroft-Gault) 64.7 BUN/Creatinine Ratio 12 (6-20) Glucose Level 106 mg/dL (70-99) Calcium Level 7.7 mg/dL (8.5-10.1) Total Bilirubin 0.4 mg/dL (0.2-1.0) Aspartate Amino Transf (AST/SGOT) 16 U/L (15-37) Alanine Aminotransferase (ALT/SGPT) 18 U/L (14-59) Alkaline Phosphatase 69 U/L (46-116) Total Protein 5.7 g/dL (6.4-8.2) Albumin 1.3 g/dL (3.4-5.0) Albumin/Globulin Ratio 0.3 (1.0-1.7) Micro 12/27. ([facility]) BLOOD CULTURE Final GRAM POSITIVE COCCI IN CLUSTERS IN 2 OF 4 BOTTLES (2 SETS DRAWN)THE AEROBIC BOTTLE OF EACH IS POSITIVE. Objective Assessment Sepsis with GPC bacteremia from 12/27 ([facility]) Nodular areas of airspace consolidation on CTA concerning for septic emboli Extensive multifocal pneumonia w/ pleural effusions Persistent fevers h/o IVDU Anemia Hepatitis C Tobacco dependent Recent miscarriage h/o E. coli in urine Plan Plan of Care vanc and Zosyn Awaiting GPC ID/susceptibilities BC from [facility] Repeat BC now and CBC in am May need DAMEON D/w Dr. Mathur Critically ill Thank you [id number] H/o Ecoli 2016 res to Pipercillin Records Carmelina 12/09 UDS + Meth and amphetamine. Legionella neg. GC neg 12/12/ blood cult neg D/c Zosyn with recent augmentin and begin Cefepime Add Zyvox DAMEON with persistent fever but could be Vanc fever also as above D/w Aidee MORALES Cardiology Attending Co-Sign Attending Co-Sign The patient was seen and interviewed as well as examined at the bedside. The chart was reviewed. The case was discussed. Agree with the plan of care. JITENDRA PAUL APRN Dec 31, 2018 09:23 GETACHEW GOMEZ MD Dec 31, 2018 11:57
--- NOTE | 2018-12-31 10:41 | CONS ---
DATE OF CONSULTATION: 12/31/2018 REQUESTING PHYSICIAN: Dr. Rodriguez. REASON FOR CONSULTATION: Antibiotic management. HISTORY OF PRESENT ILLNESS: This patient is a 33-year-old female with a history of IV drug use and hepatitis C, who presented to [facility] in [place] on 12/27/2018 with complaints of fever, body aches, and pleuritic type chest pain. She was recently treated for pneumonia and completed a course of antibiotics as an outpatient about 2 weeks prior. A chest x-ray showed multifocal pneumonia and small pleural effusions. She was admitted and started on vancomycin and Zosyn. She continued to run fevers between 101.5 and 103.4. She became increasingly hypoxic, requiring supplemental oxygen. A chest CTA showed multifocal nodular areas of airspace consolidation measuring up to 14 x 12 mm. The left upper lobe may represent multifocal pneumonia versus septic emboli versus neoplastic etiology; moderate right and small left pleural effusions with adjacent compressive atelectasis versus pulmonary infiltrates. Mild ground glass changes with intralobular septal thickening in the right upper lobe; mediastinal and right hilar lymphadenopathy; and no evidence of acute or chronic pulmonary embolism. An echocardiogram showed normal left ventricular systolic function and an estimated ejection fraction of 60%-65%. No evidence of valvular vegetation noted. Blood cultures from the 3rd returned with Gram-positive cocci in clusters in 2 of 4 bottles. The patient has since been transferred to [facility] for further evaluation and management. The patient says she is feeling a little bit better, but her breathing is still a little bit labored. She complains of headache. Denies nasal/sinus congestion or sore throat. Denies cough. She denies exposure to ill contacts or travel. She says she spends quite a bit of time outdoors and recently went to [facility]. She says she had a history of IV drug use many years ago and has been clean. She took methadone recently for pain. Denies nausea, vomiting, diarrhea, or abdominal pain. Denies dysuria, frequency, or urgency. PAST MEDICAL HISTORY: Hepatitis C, history of IV drug use, pneumonia, and recent miscarriage. History of E. coli (resistant to ampicillin, piperacillin, Bactrim, intermittent susceptibility to nitrofurantoin, otherwise susceptible) UTI. PAST SURGICAL HISTORY: No significant past surgical history. FAMILY HISTORY: Positive for breast cancer. SOCIAL HISTORY: The patient is single and lives with a roommate. She recently got a new job. She is a current every day smoker. History of IV drug use. ALLERGIES: SHE AGREED, PAROXETINE. MEDICATIONS: Vancomycin, Zosyn, Tylenol, fentanyl, Dilaudid, probiotics, and lorazepam. REVIEW OF SYSTEMS: Per history of present illness, otherwise all other review of systems are negative. PHYSICAL EXAMINATION: VITAL SIGNS: Temperature is 99.0, T-max 101.5, blood pressure 106/50, heart rate 90, respiratory rate 25, and pulse oximetry is 98% on 4 liters oxygen. BMI 21. GENERAL: The patient is propped up in bed, alert and eating some breakfast. HEENT: Pupils are equally round and reactive. Oropharynx is pink and moist. NECK: Supple. LUNGS: Clear anteriorly. Nonlabored. HEART: S1 and S2, no murmur appreciated. ABDOMEN: Soft and nontender, with bowel sounds present. EXTREMITIES: No gross edema or cyanosis. SKIN: Warm to touch. No signs of rash. NEUROLOGIC: Awake, responds to questions appropriately. RUE-PICC (8-5) without signs of any complications. LABORATORY DATA: Today's WBC 8.4, hemoglobin 6.1, hematocrit 17.6, and platelets 101,000. Creatinine 1.0 and BUN 12. Electrolytes are unremarkable. Glucose 106. Total bilirubin 0.4, AST 16, ALT 18, and albumin 1.3. Procalcitonin 0.73. Urine toxicology on 08/28 was positive for opiates and methadone. Vancomycin trough on 12/29/2018 was 6.3. MRSA PCR pending. IMPRESSION: 1. Sepsis with Gram-positive cocci bacteremia from 12/27/2018 ([facility]). 2. Nodular areas of airspace consolidation on chest CTA concerning for septic emboli. 3. Extensive multifocal pneumonia with pleural effusions. 4. Persistent fevers. 5. History of IV drug use. 6. Anemia. 7. Hepatitis C. 8. Tobacco dependent. 9. Recent miscarriage. PLAN: Continue broad-spectrum antibiotics. Awaiting GPC identification and susceptibilities from the blood cultures taken at [facility] on 12/27/2018. Repeat blood cultures now and CBC in the morning. She may need a DAMEON. Continue to monitor closely. Discussed with Dr. Mathur. The patient is critically ill. Thank you, Dr. Rodriguez for asking us to participate in this patient's care. Should you have further questions or concerns, please call. GETACHEW GOMEZ MD DR: JOE/christ JOB#: [id number] / [id number]
--- NOTE | 2018-12-31 12:10 | CONS ---
DATE OF CONSULTATION: PULMONARY CONSULTATION ATTENDING PHYSICIAN: Dr. Rodriguez. REASON FOR CONSULTATION: Pneumonia, sepsis, abnormal CT chest. HISTORY OF PRESENT ILLNESS: The patient is a 33-year-old female who was initially admitted to [facility] on 12/27/2018 with fever and generalized body aches and pleuritic type chest pain. The patient was treated for pneumonia a few weeks ago prior to that hospitalization. She has history of drug use in the past, history of marijuana use and has been positive for hepatitis C. The patient reportedly had a CT chest at [place], which was not available for me for review, but per Dr. Rodriguez's note it was consistent with multilobar pneumonia. The patient was treated with Zosyn and vancomycin. She was also noted to have anemia and thrombocytopenia. The patient had cultures that had been positive with Gram-positive cocci in clusters and final identification is pending. ID has been consulted. She was brought into [facility] after another CT of the chest was performed, which was reviewed by me, which was from 12/30/2018. She has extensive infiltrates in the right lung along with right lower lobe pleural effusion and associated atelectasis. There were also multifocal nodular airspace opacities in the left lung, largest being 14 mm in the left upper lobe. The patient was also noted to be hypoxic and fever up to 102. She is currently requiring nasal cannula. She also had some mediastinal and right hilar lymphadenopathy, which is likely reactive. Her echocardiogram has shown an EF of 60 to 65%. I have been asked to see her for further evaluation. PAST MEDICAL HISTORY: Significant for chronic hepatitis C, history of anxiety and polysubstance abuse. She has history of chronic anemia. History of abscess and cellulitis of the left ankle and status post I and D. FAMILY HISTORY: Noncontributory. SOCIAL HISTORY: She has been a smoker for about 10 years. Does not drink alcohol. She is positive for methadone and opiates. She has a history of marijuana use and IV drug use. She is not the best historian. ALLERGIES: PAXIL. REVIEW OF SYSTEMS: Unable to obtain in detail from the patient, but pertinent positive discussed in my history of present illness. PHYSICAL EXAMINATION: VITAL SIGNS: Reviewed. Her T-max is 100.5, blood pressure is stable, pulse ox 92% on 4 liters. NECK: Supple. LUNGS: With diminished breath sounds at the bases. CARDIOVASCULAR: Regular rate and rhythm. ABDOMEN: Soft. EXTREMITIES: With no pitting edema. LABORATORY DATA: Reviewed. Hemoglobin 6.1. Platelets are 101. Chemistries with a BUN of 12, creatinine 1.0. Albumin 1.3. IMPRESSION: 1. Acute hypoxic respiratory failure secondary to multifocal pneumonia and likely sepsis. 2. Abnormal CT chest with extensive consolidation involving the right lung, especially in the right upper lobe. There is also right lower lobe pleural effusion with associated atelectasis. There are multifocal nodular opacities in the left lung and also some in the right lung, likely related to an infectious etiology. The possibility of septic emboli cannot be ruled out. 3. History of substance abuse. 4. Severe protein-calorie malnutrition. 5. Echocardiogram with no evidence of vegetation. Normal EF. 6. Marked anemia with hemoglobin of 6.1. No obvious GI blood loss. RECOMMENDATION: 1. Continue with present oxygen via nasal cannula. 2. Broad-spectrum antibiotic per Infectious Disease. 3. We will reevaluate the need for transesophageal echo to rule out any vegetations. 4. Follow chest x-ray. 5. Follow all cultures. 6. Improve nutritional status. 7. SCDs for DVT prophylaxis. 8. She has anemia. We will hold off Lovenox. 9. Consider Hematology or GI consult regarding anemia. 10. We will follow along with you. Discussed with RN and Infectious Disease nurse practitioner. Critical care time 37 minutes. MERARI VERA MD DR: VI/christ JOB#: [id number] / [id number]
[2018-12-31] MEDS: LINEZOLID 600 MG TABLET PO SCH ×2 (13:21→21:08)
--- NOTE | 2018-12-31 13:53 | NUR ---
Pharmacy Vancomycin Dosing Note S: Consulted to monitor and dose vancomycin started 12/27/18. O: SUSIE SO is a 33 year old F with bacteremia, pneumonia, rule out endocarditis. Other Antibiotics: CEFEPIME 2G IV Q8HRS ZYVOX 600 MG IV Q12HRS LABS: Last BUN: 12 Last Creatinine: 1.0 Creatinine Clearance: 74 mL/min Last WBC: 8.4 Last Procalcitonin: 0.73 Tmax (past 24 hours): 100.1 Microbiology: BLOOD CX ([facility]): GPC IN CLUSTERS I/O: 921/600 Drug Levels: Last Trough level: 11 on 12/31/18 at 1230 Last dose given 01/01/19 at 0131 Vancomycin Dosing: Dosing Weight: Actual Target Trough: 15-20 A: Patient is receiving vancomycin 1000 mg IV q8hrs. A trough of 11 mcg/ml is below goal range. Patient's SCr is 1.0 with an eCrCl of 74 ml/min. Change to the following: P: 1. Change to Vancomycin 750 mg IV q8h 2. Follow up Trough level on 01/01/19 at 1230 3. Pharmacy will continue to monitor, follow and adjust therapy as needed. ISIDRO [facility], 12/31/18 [id number]
[2018-12-31] MEDS: CEFEPIME HCL IV Push 2 GM VIAL. IVP SCH ×2 (14:27→21:58)
[2018-12-31 15:01] LABS: HEMATOCRIT 22.8 % (36.0-47.0); HEMOGLOBIN 7.7 g/dL (12.0-15.5)
--- NOTE | 2018-12-31 19:40 | NUR ---
This RN was assessing the pt and was checking pedal pulse presence when he rolled down the pt's sock on the left foot. From the sock, a folded small plastic wrapper popped out. This RN finished assessing the pedal pulses, picked up the small plastic wrapper and exited the pt's room. Upon examination of the wrapper outside the room, the wrapper contained a small ball of a pressed black tar- like substance that was also inside another small bit of cellophane. This RN notified the charge nurse. Charge nurse notified fuel house attendant, fuel house attendant notified security. Plastic wrapper containing substance was placed inside biohazard bag with pt's label on it. While waiting for the fuel house attendant and security to arrive, this RN reviewed pt's monitor for real time vitals. Pt's heart rate jumped from low 100's to 150's with no known activity except laying supine. Pt's family member left the room shortly after. electric motor repairing supervisor and security arrived and wrapper containing substance presented to them for review. NGOZI Brown, security chief museum and fuel house attendant all signed logbook and walked to the restroom to dispose of substance via flushing.
[2018-12-31] MEDS: VANCOMYCIN 750 MG in IV NORMAL SALINE 250ML 250 ML IV SCH (21:08)
[2019-01-01] VITALS (8 sets, daily range): BP systolic 110–134; BP diastolic 60–88
[2019-01-01] MEDS: HYDROmorphone 2 MG/ML VIAL IV PRN ×7 (03:36→23:22)
[2019-01-01] MEDS: IV NORMAL SALINE 1000ML BAG 1,000 ML IV SCH ×2 (04:33→10:00)
[2019-01-01] MEDS: VANCOMYCIN 750 MG in IV NORMAL SALINE 250ML 250 ML IV SCH ×3 (04:37→20:55)
[2019-01-01] MEDS: CEFEPIME HCL IV Push 2 GM VIAL. IVP SCH ×3 (06:07→20:55)
[2019-01-01 06:35] LABS: HEMATOCRIT 21.7 % (36.0-47.0); HEMOGLOBIN 7.5 g/dL (12.0-15.5); RED BLOOD COUNT 2.38 x10^6/uL (3.50-5.40); RED CELL DISTRIBUTION WIDTH 19.5 % (11.5-14.5); WHITE BLOOD COUNT 8.7 x10^3/uL (4.0-11.0)
[2019-01-01 06:54] LABS: CREATININE 1.1 mg/dL (0.6-1.0); GFR 57.9
[2019-01-01] MEDS ORDERED: PROCHLORPERAZINE 10 MG/2 ML VIAL. IV PRN (07:00)
[2019-01-01] MEDS ORDERED: fentaNYL PF VIAL 100 MCG/2 ML VIAL IV PRN ×2 (07:00)
[2019-01-01] MEDS ORDERED: MORPHINE SULFATE 2 MG/ML VIAL. IV PRN (07:00)
[2019-01-01] MEDS ORDERED: IV RINGERS,LACTATED 1000ML 1,000 ML IV SCH (07:00)
[2019-01-01] MEDS ORDERED: LIDOCAINE 1% PF 2 ML VIAL. ID PRN (07:00)
[2019-01-01] MEDS ORDERED: HYDROmorphone 2 MG/ML VIAL IV PRN (07:00)
[2019-01-01] MEDS ORDERED: ONDANSETRON PF 4 MG/2 ML VIAL. IV PRN (07:00)
--- NOTE | 2019-01-01 08:38 | PDOC ---
Infectious Disease Note Subjective Subjective Not feeling well c/o SOA, chest discomfort and back pain Satting 96% on O2 3 L Ongoing fevers, Tmax 101.0 UO good Denies N/V/D ROS ROS per HPI Vital Sign Vital Signs Vital Signs Date Time Temp Pulse Resp B/P (MAP) Pulse Ox O2 Delivery O2 Flow Rate FiO2 01/01/19 08:15 Nasal Cannula 3.0 01/01/19 04:34 25 94 01/01/19 04:00 99.5 105 125/78 (94) 99.5 Physical Exam PHYSICAL EXAM GENERAL: Crying, HEENT: Pupils are equally round and reactive. Oropharynx is pink and moist. NECK: Supple. LUNGS: Clear anteriorly. Nonlabored. HEART: S1 and S2, no murmur appreciated, regular ABDOMEN: Soft and nontender, with bowel sounds present. EXTREMITIES: No gross edema or cyanosis. SKIN: Warm to touch. No signs of rash. NEUROLOGIC: Awake, responds to questions appropriately. RUE-PICC (8-5) without signs of any complications. Labs Lab Laboratory Tests Test 12/31/18 12:00 12/31/18 14:55 01/01/19 06:26 Vancomycin Level Trough 11.0 mcg/mL (10.0-20.0) Vancomycin Last Dose Date 12-31-18 Vancomycin Last Dose Time 0100 Hemoglobin 7.7 g/dL (12.0-15.5) 7.5 g/dL (12.0-15.5) Hematocrit 22.8 % (36.0-47.0) 21.7 % (36.0-47.0) Mean Corpuscular Hemoglobin Concent 34 g/dL (31-37) 34 g/dL (31-37) White Blood Count 8.7 x10^3/uL (4.0-11.0) Red Blood Count 2.38 x10^6/uL (3.50-5.40) Mean Corpuscular Volume 91 fL (79-100) Mean Corpuscular Hemoglobin 31 pg (25-35) Red Cell Distribution Width 19.5 % (11.5-14.5) Platelet Count 104 x10^3/uL (140-400) Creatinine 1.1 mg/dL (0.6-1.0) Estimated GFR (Cockcroft-Gault) 57.9 Micro 8/3. ([facility]) BLOOD CULTURE Final GRAM POSITIVE COCCI IN CLUSTERS IN 2 OF 4 BOTTLES (2 SETS DRAWN)THE AEROBIC BOTTLE OF EACH IS POSITIVE. Objective Assessment Sepsis with GPC bacteremia from 12/27 ([facility]) Nodular areas of airspace consolidation on CTA concerning for septic emboli Extensive multifocal pneumonia w/ pleural effusions Persistent fevers h/o IVDU Anemia s/p PRBCs Hepatitis C Tobacco dependent Recent miscarriage h/o E. coli (R pip) in urine Plan Plan of Care vanc, Zyvox and Cefepime Trough 11.0 Awaiting GPC ID/susceptibilities BC from [facility] Repeat BC 12/31 in process Probiotics Awaiting cardiology consult for DAMEON D/w nursing Critically ill Clinically some better - Very hungry today - per report Heroin found in her sock. Await DAMEON Attending Co-Sign Attending Co-Sign The patient was seen and interviewed as well as examined at the bedside. The chart was reviewed. The case was discussed. Agree with the plan of care. JITENDRA PAUL APRN Jan 01, 2019 08:38 GETACHEW GOMEZ MD Jan 01, 2019 13:06
[2019-01-01] MEDS: LINEZOLID 600 MG TABLET PO SCH ×2 (09:00→20:54)
[2019-01-01] MEDS: LACTOBACILLUS RHAMNOSUS GG 1 CAPSULE. PO SCH ×2 (09:00→20:54)
--- NOTE | 2019-01-01 11:24 | PDOC ---
PULMONARY PROGRESS NOTES Subjective no increase soa or cough Vitals Vital Signs Date Time Temp Pulse Resp B/P (MAP) Pulse Ox O2 Delivery O2 Flow Rate FiO2 01/01/19 08:56 99.3 106 127/76 (93) 94 Nasal Cannula 3.0 99.3 01/01/19 04:34 25 General: Alert, No acute distress Lungs: Other (decrease bs) Cardiovascular: S1 Abdomen: Soft Neuro Exam: Alert Extremities: Other Skin: Warm Labs Laboratory Tests Test 12/31/18 00:05 12/31/18 05:00 12/31/18 06:00 12/31/18 12:00 Nasal Screen MRSA (PCR) Negative (Negative) Procalcitonin 0.73 ng/mL (0.00-0.10) White Blood Count 8.4 x10^3/uL (4.0-11.0) Red Blood Count 1.87 x10^6/uL (3.50-5.40) Hemoglobin 6.1 g/dL (12.0-15.5) Hematocrit 17.6 % (36.0-47.0) Mean Corpuscular Volume 94 fL (79-100) Mean Corpuscular Hemoglobin 33 pg (25-35) Mean Corpuscular Hemoglobin Concent 35 g/dL (31-37) Red Cell Distribution Width 18.8 % (11.5-14.5) Platelet Count 101 x10^3/uL (140-400) Neutrophils (%) (Auto) 70 % (31-73) Lymphocytes (%) (Auto) 21 % (24-48) Monocytes (%) (Auto) 8 % (0-9) Eosinophils (%) (Auto) 0 % (0-3) Basophils (%) (Auto) 1 % (0-3) Neutrophils # (Auto) 5.9 x10^3/uL (1.8-7.7) Lymphocytes # (Auto) 1.7 x10^3/uL (1.0-4.8) Monocytes # (Auto) 0.7 x10^3/uL (0.0-1.1) Eosinophils # (Auto) 0.0 x10^3/uL (0.0-0.7) Basophils # (Auto) 0.1 x10^3/uL (0.0-0.2) Sodium Level 139 mmol/L (136-145) Potassium Level 3.7 mmol/L (3.5-5.1) Chloride Level 106 mmol/L (98-107) Carbon Dioxide Level 22 mmol/L (21-32) Anion Gap 11 (6-14) Blood Urea Nitrogen 12 mg/dL (7-20) Creatinine 1.0 mg/dL (0.6-1.0) Estimated GFR (Cockcroft-Gault) 64.7 BUN/Creatinine Ratio 12 (6-20) Glucose Level 106 mg/dL (70-99) Calcium Level 7.7 mg/dL (8.5-10.1) Total Bilirubin 0.4 mg/dL (0.2-1.0) Aspartate Amino Transf (AST/SGOT) 16 U/L (15-37) Alanine Aminotransferase (ALT/SGPT) 18 U/L (14-59) Alkaline Phosphatase 69 U/L (46-116) Total Protein 5.7 g/dL (6.4-8.2) Albumin 1.3 g/dL (3.4-5.0) Albumin/Globulin Ratio 0.3 (1.0-1.7) Vancomycin Level Trough 11.0 mcg/mL (10.0-20.0) Vancomycin Last Dose Date 12-31-18 Vancomycin Last Dose Time 0100 Test 12/31/18 14:55 01/01/19 06:26 Hemoglobin 7.7 g/dL (12.0-15.5) 7.5 g/dL (12.0-15.5) Hematocrit 22.8 % (36.0-47.0) 21.7 % (36.0-47.0) Mean Corpuscular Hemoglobin Concent 34 g/dL (31-37) 34 g/dL (31-37) White Blood Count 8.7 x10^3/uL (4.0-11.0) Red Blood Count 2.38 x10^6/uL (3.50-5.40) Mean Corpuscular Volume 91 fL (79-100) Mean Corpuscular Hemoglobin 31 pg (25-35) Red Cell Distribution Width 19.5 % (11.5-14.5) Platelet Count 104 x10^3/uL (140-400) Creatinine 1.1 mg/dL (0.6-1.0) Estimated GFR (Cockcroft-Gault) 57.9 Laboratory Tests Test 12/31/18 12:00 12/31/18 14:55 01/01/19 06:26 Vancomycin Level Trough 11.0 mcg/mL (10.0-20.0) Vancomycin Last Dose Date 12-31-18 Vancomycin Last Dose Time 0100 Hemoglobin 7.7 g/dL (12.0-15.5) 7.5 g/dL (12.0-15.5) Hematocrit 22.8 % (36.0-47.0) 21.7 % (36.0-47.0) Mean Corpuscular Hemoglobin Concent 34 g/dL (31-37) 34 g/dL (31-37) White Blood Count 8.7 x10^3/uL (4.0-11.0) Red Blood Count 2.38 x10^6/uL (3.50-5.40) Mean Corpuscular Volume 91 fL (79-100) Mean Corpuscular Hemoglobin 31 pg (25-35) Red Cell Distribution Width 19.5 % (11.5-14.5) Platelet Count 104 x10^3/uL (140-400) Creatinine 1.1 mg/dL (0.6-1.0) Estimated GFR (Cockcroft-Gault) 57.9 Medications Active Scripts Medications Dose Route/Sig Max Daily Dose Days Date Category No Active Prescriptions or Reported Medications Rx Impression . 1. Acute hypoxic respiratory failure secondary to multifocal pneumonia and likely sepsis. 2. Abnormal CT chest with extensive consolidation involving the right lung, especially in the right upper lobe. There is also right lower lobe pleural effusion with associated atelectasis. There are multifocal nodular opacities in the left lung and also some in the right lung, likely related to an infectious etiology. The possibility of septic emboli cannot be ruled out. 3. History of substance abuse. 4. Severe protein-calorie malnutrition. 5. Echocardiogram with no evidence of vegetation. Normal EF. 6. Marked anemia with hemoglobin of 6.1. No obvious GI blood loss. Plan . 1. Continue with present oxygen via nasal cannula. 2. Broad-spectrum antibiotic per Infectious Disease. 3. reevaluate the need for transesophageal echo to rule out any vegetations. 4. Follow chest x-ray as needed 5. Follow all cultures. 6. Improve nutritional status. 7. SCDs for DVT prophylaxis. 8. She has anemia. We will hold off Lovenox. 9. Consider Hematology or GI consult regarding anemia. 10. We will follow along with you. Discussed with RN and Infectious Disease nurse practitioner. MERARI VERA MD Jan 01, 2019 11:24
[2019-01-01 12:51] LABS: VANC TR 13.7 mcg/mL (10.0-20.0)
[2019-01-01] MEDS ORDERED: BENZOCAINE ONE 20% MUCOSAL SPRAY. MM ×2 (13:00)
[2019-01-01] MEDS ORDERED: PROPOFOL 20 ML IV ONE (13:20)
--- NOTE | 2019-01-01 13:42 | CARD ---
MR#: [id number] Date of Study: 01/01/2019 Ordering Physician: GETACHEW GOMEZ, Referring Physician: Gareth WHITEHEAD: Kari Arevalo RDCS APPROVED REPORT EXAM: Transesophageal echocardiogram with color flow Doppler. INDICATION Infection:Rule out subacute bacterial endocarditis Reason For Test : Rule out endocarditis. PROCEDURE After obtaining informed consent, patient underwent transesophageal echo in the ICU. Type of Sedation : General Anesthesia Sedation was administered by Dr. Giuseppe MD. Sedation was achieved with Propofol 200 mg intravenously. Transesophageal probe was inserted and advanced into esophagus by Fernando Castaneda MD. The DAMEON was performed without complications. Throughout the procedure, the blood pressure, pulse oximetry, cardiac rhythm, and rate were monitored . The patient tolerated the procedure without adverse effects. Recovery from general anesthesia was une ventful and vital signs were stable. LEFT VENTRICLE The left ventricle is normal size. There is normal left ventricular wall thickness. The left ventricu lar systolic function is normal and the ejection fraction is within normal range. The Ejection Fracti on is 55-60%. There is normal LV segmental wall motion. No left ventricle thrombus noted on this stud y. RIGHT VENTRICLE The right ventricle is normal size. There is normal right ventricular wall thickness. The right ventr icular systolic function is normal. ATRIA The left atrium size is normal. The right atrium size is normal. The interatrial septum is intact wit h no evidence for an atrial septal defect or patent foramen ovale as noted on 2-D or Doppler imaging. There is no thrombus noted in the left atrial appendage. AORTIC VALVE The aortic valve is normal in structure and function. Doppler and Color Flow revealed no significant aortic regurgitation. There is no significant aortic valvular stenosis. There is no aortic valvular v egetation. MITRAL VALVE The mitral valve is normal in structure and function. There is no evidence of mitral valve prolapse o r vegetation. There is no mitral valve stenosis. Doppler and Color-flow revealed trace to mild mitral regurgitation. TRICUSPID VALVE The tricuspid valve is normal in structure and function. Doppler and Color Flow revealed mild tricusp id regurgitation. There is a mobile vegetation attached to the septal leaflet of the tricuspid valve measuring approximately 1.3 x 0.7 cm. There is no tricuspid valve stenosis. PULMONIC VALVE The pulmonary valve is normal in structure and function. Doppler and Color Flow revealed no pulmonic valvular regurgitation. There is no pulmonic valvular stenosis. GREAT VESSELS The aortic root is normal in size. The IVC is normal in size and collapses >50% with inspiration. Critical Notification Critical Value: No <Conclusion> The left ventricular systolic function is normal and the ejection fraction is within normal range. The Ejection Fraction is 55-60%. There is normal LV segmental wall motion. There is a mobile vegetation attached to the septal leaflet of the tricuspid valve measuring approxim ately 1.3 x 0.7 cm. Doppler and Color Flow revealed mild tricuspid regurgitation. Signed by : Fernando Castaneda, Electronically Approved : 01/01/2019 13:41:13
[2019-01-01] MEDS: VANCOMYCIN PER PHARMACY MC PRN (14:04)
--- NOTE | 2019-01-01 14:04 | NUR ---
Pharmacy Vancomycin Dosing Note S: Consulted to monitor and dose vancomycin started 12/27/18. O: SUSIE SO is a 33 year old F with Bacteremia, Pneumonia, POSSIBLE ENDOCARDITIS. Other Antibiotics: CEFEPIME 2G IV Q8HRS ZYVOX 600 MG IV Q12HRS LABS: Last BUN: 12 Last Creatinine: 1.1 Creatinine Clearance: 70 mL/min Last WBC: 8.7 Tmax (past 24 hours): 99.3 Microbiology: BLOOD CX ([facility]): GPC IN CLUSTERS Drug Levels: Last Trough level: 13.7 on 01/01/19 at 1330 Vancomycin Dosing: Dosing Weight: Actual Target Trough: 15-20 A: Based on: TROUGH LEVEL P: 1. Continue Vancomycin 750 mg IV q8h (all other potential regimens project trough > 20 i.e. 1gm q8h or 750mg q6h) 2. Follow up Trough level in 5-7 days 3. Pharmacy will continue to monitor, follow and adjust therapy as needed. SHONDA HERNANDEZ [facility], 01/01/19 [id number]
--- NOTE | 2019-01-01 15:28 | NUR ---
SS following for discharge planning. SS reviewed pt chart. Pt is self pay pt. HCFS following for self pay status. Pt is from home and is currently requiring oxygen. No discharge needs noted at this time. SS will continue to follow for discharge planning.
[2019-01-01] MEDS: ACETAMINOPHEN 325 MG TABLET. PO PRN (23:29)
--- NOTE | 2019-01-02 02:02 | PN ---
DATE: 01/01/2019 SUBJECTIVE: The patient is resting flat, comfortably in bed, in no apparent distress. She continued to complain of feeling horrible and having pain, although she seemed to be very comfortable, has had no fever, although she did spike a temperature yesterday up to 101. OBJECTIVE: GENERAL: When I examined her, she looked well and was clearly in no apparent respiratory distress. No pallor, jaundice, cyanosis or thyromegaly. No jugular venous distention. No limb edema. VITAL SIGNS: Her heart rate was 106, blood pressure was 127/76, temperature was 99.3, respiratory rate was 24, and oxygen saturation was 94% on 3 liters of oxygen. HEAD, EYES, EARS, NOSE AND THROAT: Normocephalic, atraumatic. NECK: Supple. CARDIAC: Normal first and second heart sounds with no gallop or murmur. CHEST: Shows central trachea, equally reduced expansion, air entry, vesicular sounds with bilateral basal crepitation. I could not appreciate any rhonchi. ABDOMEN: Scaphoid, soft, nontender. NEUROLOGIC: She is sleeping, but arousable. All cranial nerves intact. She moves extremities without difficulty. Her intake was 900, output was 600. LABORATORY DATA: As of this morning showed a creatinine of 1.1, estimated GFR was 58 mL/min. Her white cell count was 8700, hemoglobin 7.5, hematocrit 21, MCV 91, and platelet count of 104,000. ASSESSMENT: 1. Acute hypoxic respiratory failure. The patient continued to require 3 liters of oxygen. 2. Multifocal pneumonia, concerning for possible atypical organisms, fungal infection and/or septic emboli. 3. She did grow gram-positive cocci, for which she is on IV vancomycin and Zosyn; however, she continued to spike her temperature despite that. 4. Her transthoracic echocardiogram showed no evidence of endocarditis. 5. Repeat CT scan showed no evidence of pulmonary emboli; however, it did show again multifocal nodular areas of airspace consolidation measuring up to 14 x 12 mm ____. PLAN: Continue with IV antibiotic. Continue with pain management. Both the Infectious Disease and licensing officer are greatly appreciated. FABY DAWSON MD DR: TANIA/christ JOB#: [id number] / [id number]
[2019-01-02] MEDS: HYDROmorphone 2 MG/ML VIAL IV PRN ×7 (03:16→23:29)
[2019-01-02] MEDS: IV NORMAL SALINE 1000ML BAG 1,000 ML IV SCH ×3 (03:19→14:08)
[2019-01-02 03:29] VITALS: BP 118/77
[2019-01-02] MEDS: VANCOMYCIN 750 MG in IV NORMAL SALINE 250ML 250 ML IV SCH ×2 (05:43→14:05)
[2019-01-02] MEDS: CEFEPIME HCL IV Push 2 GM VIAL. IVP SCH ×2 (05:43→14:09)
[2019-01-02 06:39] LABS: CALCIUM 7.7 mg/dL (8.5-10.1); GFR 64.7; POTASSIUM 3.6 mmol/L (3.5-5.1)
[2019-01-02 07:00] VITALS: BP 120/74
[2019-01-02] MEDS: LINEZOLID 600 MG TABLET PO SCH ×2 (08:37→21:39)
[2019-01-02] MEDS: fentaNYL PF VIAL 100 MCG/2 ML VIAL IV PRN (08:37)
[2019-01-02] MEDS: LACTOBACILLUS RHAMNOSUS GG 1 CAPSULE. PO SCH ×2 (08:37→21:38)
--- NOTE | 2019-01-02 09:36 | NUR ---
IP: I received a report from [facility] of + mrsa blood culture from 12/27/18. Pt to be in contact precautions until there are 2 negative blood cultures 7 days apart.
[2019-01-02 11:00] VITALS: BP 125/80
[2019-01-02] MEDS: VANCOMYCIN PER PHARMACY MC PRN ×2 (11:27→14:27)
[2019-01-02] MEDS: ACETAMINOPHEN 325 MG TABLET. PO PRN ×2 (12:15→23:26)
--- NOTE | 2019-01-02 12:26 | PDOC ---
Infectious Disease Note Subjective Subjective c/o all body pain/chills/chest discomfort Fever 102.8 3L O2 Denies N/V/D ROS ROS per HPI Vital Sign Vital Signs Vital Signs Date Time Temp Pulse Resp B/P (MAP) Pulse Ox O2 Delivery O2 Flow Rate FiO2 01/02/19 11:00 102.8 100 20 125/80 (95) 94 Room Air 102.8 01/02/19 09:34 2.0 Physical Exam PHYSICAL EXAM GENERAL: alert, irritable, HEENT: PER, oral cavity dry NECK: Supple. LUNGS: + wheezes and rhonchi HEART: S1 and S2, no murmur appreciated, regular ABDOMEN: Soft and nontender, with bowel sounds present. EXTREMITIES: No gross edema or cyanosis. SKIN: Warm to touch. No signs of rash. Multiple scabs NEUROLOGIC: Awake, responds to questions appropriately. RUE-PICC (8-5) without signs of any complications. Labs Lab Laboratory Tests Test 01/01/19 12:30 01/02/19 05:30 Vancomycin Level Trough 13.7 mcg/mL (10.0-20.0) Vancomycin Last Dose Date 01/01/19 Vancomycin Last Dose Time 0500 Sodium Level 136 mmol/L (136-145) Potassium Level 3.6 mmol/L (3.5-5.1) Chloride Level 106 mmol/L (98-107) Carbon Dioxide Level 21 mmol/L (21-32) Anion Gap 9 (6-14) Blood Urea Nitrogen 10 mg/dL (7-20) Creatinine 1.0 mg/dL (0.6-1.0) Estimated GFR (Cockcroft-Gault) 64.7 Glucose Level 96 mg/dL (70-99) Calcium Level 7.7 mg/dL (8.5-10.1) Micro 12/27. ([facility]) BLOOD CULTURE Final BLD CULT RESULT 1 Final Staphylococcus aureus Staphylococcus aureus CLINDAMYCIN SENSITIVE S<=0.25 ERYTHROMYCIN SENSITIVE S<=0.25 ANTIMICROBIAL SUSCEPTIBILITY Final Comment S = Susceptible; I = Intermediate; R = Resistant P = Positive; N = Negative MICS are expressed in micrograms per mL Antibiotic RSLT#1 RSLT#2 RSLT#3 RSLT#4 Ciprofloxacin S =1 Clindamycin S<=0.25 Erythromycin S<=0.25 Gentamicin S<=0.5 Levofloxacin S =0.5 Linezolid S =2 Oxacillin R>=4 Penicillin R>=0.5 Rifampin S<=0.5 Tetracycline S<=1 Trimethoprim/Sulfa S<=10 MICS are expressed in micrograms per mL Antibiotic RSLT#1 Ciprofloxacin S<=0.5 Gentamicin S<=0.5 Levofloxacin S =0.25 Linezolid S =2 Moxifloxacin S<=0.25 Oxacillin S =0.5 Penicillin R>=0.5 Quinupristin/Dalfopristin S<=0.25 Rifampin S<=0.5 Tetracycline S<=1 Trimethoprim/Sulfa S<=10 Vancomycin S<=0.5 12/31. BLOOD CULTURE Preliminary NO GROWTH AFTER 2 DAYS Objective Assessment Fever - can persist for 5 or more days with endocarditis. ? competent of withdrawl Sepsis with MRSA & MSSA bacteremia from 12/27 ([facility]). Bacterial endocarditis of tricuspid valve. DAMEON + veg measuring 1.3 x 0.7 cm. Repeat BC 12/31 NGTD Nodular areas of airspace consolidation on CTA concerning for septic emboli Extensive multifocal pneumonia w/ pleural effusions Persistent fevers ? withdrawal h/o IVDU Anemia s/p PRBCs Hepatitis C Tobacco dependent Recent miscarriage h/o E. coli (R pip) in urine Plan Plan of Care vanc, Zyvox and d/c Cefepime Trough 13.7 add dapto susceptibility test. D/w micro Repeat BC 12/31 neg so far Probiotics Heroin was found in sock per nursing chest x-ray D/w nursing Critically ill Feeling better. smiling and has been eating. Denies using substances while in hospital If fever does not improve over next 2 or so days may need imaging Attending Co-Sign Attending Co-Sign The patient was seen and interviewed as well as examined at the bedside. The chart was reviewed. The case was discussed. Agree with the plan of care. JITENDRA PAUL APRN Jan 02, 2019 12:26 GETACHEW GOMEZ MD Jan 02, 2019 14:14
--- NOTE | 2019-01-02 12:56 | PDOC ---
PULMONARY PROGRESS NOTES Subjective no increase soa or cough Vitals Vital Signs Date Time Temp Pulse Resp B/P (MAP) Pulse Ox O2 Delivery O2 Flow Rate FiO2 01/02/19 12:17 18 Nasal Cannula 3.0 01/02/19 11:00 102.8 100 125/80 (95) 94 102.8 General: Alert, No acute distress Lungs: Other (decrease bs) Cardiovascular: S1 Abdomen: Soft Neuro Exam: Alert Extremities: Other Skin: Warm Labs Laboratory Tests Test 12/31/18 14:55 01/01/19 06:26 01/01/19 12:30 01/02/19 05:30 Hemoglobin 7.7 g/dL (12.0-15.5) 7.5 g/dL (12.0-15.5) Hematocrit 22.8 % (36.0-47.0) 21.7 % (36.0-47.0) Mean Corpuscular Hemoglobin Concent 34 g/dL (31-37) 34 g/dL (31-37) White Blood Count 8.7 x10^3/uL (4.0-11.0) Red Blood Count 2.38 x10^6/uL (3.50-5.40) Mean Corpuscular Volume 91 fL (79-100) Mean Corpuscular Hemoglobin 31 pg (25-35) Red Cell Distribution Width 19.5 % (11.5-14.5) Platelet Count 104 x10^3/uL (140-400) Creatinine 1.1 mg/dL (0.6-1.0) 1.0 mg/dL (0.6-1.0) Estimated GFR (Cockcroft-Gault) 57.9 64.7 Vancomycin Level Trough 13.7 mcg/mL (10.0-20.0) Vancomycin Last Dose Date 01/01/19 Vancomycin Last Dose Time 0500 Sodium Level 136 mmol/L (136-145) Potassium Level 3.6 mmol/L (3.5-5.1) Chloride Level 106 mmol/L (98-107) Carbon Dioxide Level 21 mmol/L (21-32) Anion Gap 9 (6-14) Blood Urea Nitrogen 10 mg/dL (7-20) Glucose Level 96 mg/dL (70-99) Calcium Level 7.7 mg/dL (8.5-10.1) Laboratory Tests Test 01/02/19 05:30 Sodium Level 136 mmol/L (136-145) Potassium Level 3.6 mmol/L (3.5-5.1) Chloride Level 106 mmol/L (98-107) Carbon Dioxide Level 21 mmol/L (21-32) Anion Gap 9 (6-14) Blood Urea Nitrogen 10 mg/dL (7-20) Creatinine 1.0 mg/dL (0.6-1.0) Estimated GFR (Cockcroft-Gault) 64.7 Glucose Level 96 mg/dL (70-99) Calcium Level 7.7 mg/dL (8.5-10.1) Medications Active Scripts Medications Dose Route/Sig Max Daily Dose Days Date Category No Active Prescriptions or Reported Medications Rx Impression . 1. Acute hypoxic respiratory failure secondary to multifocal pneumonia and likely sepsis. 2. Abnormal CT chest with extensive consolidation involving the right lung, especially in the right upper lobe. There is also right lower lobe pleural effusion with associated atelectasis. There are multifocal nodular opacities in the left lung and also some in the right lung, likely related to an infectious etiology. Likely septic emboli 3. History of substance abuse. 4. Severe protein-calorie malnutrition. 5. DAMEON with tricuspid vegetation. Normal EF. 6. Marked anemia with hemoglobin of 6.1.POA. No obvious GI blood loss. Plan . 1. Continue with present oxygen via nasal cannula. 2. Broad-spectrum antibiotic per Infectious Disease. 3. DAMEON with right sided endocarditis 4. Follow chest x-ray as needed 5. Follow all cultures. 6. Improve nutritional status. 7. SCDs for DVT prophylaxis. 8. She has anemia. We will hold off Lovenox. 9. Consider Hematology or GI consult regarding anemia. 10. We will follow along with you. MERARI VERA MD Jan 02, 2019 12:56
[2019-01-02] MEDS ORDERED: IBUPROFEN 200 MG TABLET. PO PRN (13:00)
--- NOTE | 2019-01-02 13:17 | RAD ---
Single view of the chest. 01/02/2019 12:15 PM Indication: Fever, wheezing Comparison: CT of the chest, abdomen, and pelvis August 04, 2016 Findings: There is hazy opacification is seen throughout the right lung possibly representing a combination of layering effusion and infiltrate/pneumonia. Mild left basilar effusion or infiltrate is also present. No pneumothorax. Bony thorax is grossly intact. Right upper extremity PICC line appears to be in grossly normal position. IMPRESSION: 1. Hazy opacities throughout right lung likely combination of layering effusion and patchy infiltrates. 2. Mild left effusion and possibly basilar infiltrate. 3. Radiographic follow-up to ensure complete resolution recommended Electronically signed by: Nilesh Ortega MD (01/02/2019 1:15 PM) [id number]
[2019-01-02] MEDS: MORPHINE ER 15 MG TABLET.ER PO SCH ×2 (14:05→21:39)
[2019-01-02 15:00] VITALS: BP 133/75
[2019-01-02] MEDS ORDERED: IPRATRPIUM/ALBUTEROL 0.5/2.5MG 3 ML NEBU. NEB SCH (16:00)
[2019-01-02 19:00] VITALS: BP 121/77
[2019-01-02] MEDS ORDERED: IPRATRPIUM/ALBUTEROL 0.5/2.5MG 3 ML NEBU. NEB PRN (19:30)
[2019-01-02] MEDS: VANCOMYCIN 1 GM in IV NORMAL SALINE 250ML 250 ML IV SCH (21:41)
[2019-01-02 23:00] VITALS: BP 130/84
[2019-01-03] VITALS (10 sets, daily range): BP systolic 113–142; BP diastolic 64–87
[2019-01-03] MEDS: fentaNYL PF VIAL 100 MCG/2 ML VIAL IV PRN ×4 (01:55→20:45)
--- NOTE | 2019-01-03 02:37 | PN ---
DATE: 01/02/2019 SUBJECTIVE: The patient is sitting up in bed, eating her lunch comfortably, in no apparent distress. She is definitely more awake, alert and definitely in a better mood, although she continued to complain of pain and aches and arthralgias in all her muscles. PHYSICAL EXAMINATION: GENERAL: When I examined her, she looked well and was clearly in no apparent respiratory distress, pale, but no jaundice, cyanosis, or thyromegaly. No jugular venous distension. No lower limb edema. VITAL SIGNS: Her heart rate was 100, blood pressure was 125/80, temperature was still up at 102.8, respiratory rate was 20, and oxygen saturation was 94% on 3 liters oxygen by nasal cannula. HEAD, EYES, EARS, NOSE AND THROAT: Showed normocephalic, atraumatic. NECK: Supple. HEART: With normal first and second heart sounds. No gallop or murmur. CHEST: Clear to auscultation. No crepitation or rhonchi. ABDOMEN: Distended, soft, nontender. NEUROLOGIC: She is awake, alert, responding appropriately. All cranial nerves intact. She moves extremities without difficulty. Her intake was 3900, output was 2300. LABORATORY DATA: As of yesterday, her white cell count was 8700, hemoglobin 7.5, hematocrit 21.7, MCV 91, and platelet count of 104,000. Serum sodium 136, potassium 3.6, chloride 106, bicarbonate 21, anion gap of 9, BUN 10, creatinine 1, estimated GFR was 65 mL, glucose was 96, calcium was 7.7. Her blood cultures taken in [facility] showed growth of methicillin-resistant Staphylococcus aureus. Her DAMEON showed that she has mobile vegetation attached to the septal leaflet of the tricuspid valve measuring approximately 1.3 x 0.7 cm. Doppler and color flow revealed mild tricuspid regurgitation. ASSESSMENT: 1. Acute hypoxic respiratory failure. The patient continued to require 3 liters of oxygen. 2. Multifocal pneumonia, likely due to septic emboli. She has vegetation on her tricuspid valve. 3. She did grow Gram-positive cocci and her blood culture identified as methicillin-resistant Staphylococcus aureus. 4. Her transthoracic echocardiogram showed no evidence of endocarditis; however, transesophageal echocardiogram showed vegetation in her tricuspid valve. PLAN: To continue with antibiotic as recommended by the Infectious Disease specialist. I added MS Contin 50 mg twice a day and also ibuprofen, aspirin on a full stomach for her aches and pains. FABY DAWSON MD DR: TANIA/christ JOB#: [id number] / [id number]
[2019-01-03] MEDS: VANCOMYCIN 1 GM in IV NORMAL SALINE 250ML 250 ML IV SCH ×3 (05:41→21:25)
[2019-01-03] MEDS: HYDROmorphone 2 MG/ML VIAL IV PRN ×4 (05:42→21:19)
[2019-01-03] MEDS: IV NORMAL SALINE 1000ML BAG 1,000 ML IV SCH ×3 (05:43→21:29)
[2019-01-03 06:42] LABS: RED BLOOD COUNT 2.17 x10^6/uL (3.50-5.40); RED CELL DISTRIBUTION WIDTH 18.9 % (11.5-14.5); WHITE BLOOD COUNT 6.1 x10^3/uL (4.0-11.0)
[2019-01-03 06:43] LABS: ALBUMIN 1.4 g/dL (3.4-5.0); ALBUMIN/GLOBULIN RATIO 0.3 (1.0-1.7); CALCIUM 7.9 mg/dL (8.5-10.1); CREATININE 0.9 mg/dL (0.6-1.0); POTASSIUM 3.6 mmol/L (3.5-5.1); TOTAL BILIRUBIN 0.3 mg/dL (0.2-1.0); TOTAL PROTEIN 5.9 g/dL (6.4-8.2)
--- NOTE | 2019-01-03 07:28 | PDOC ---
PULMONARY PROGRESS NOTES Subjective no soa or cough, has pain all over, t max 103 Vitals Vital Signs Date Time Temp Pulse Resp B/P (MAP) Pulse Ox O2 Delivery O2 Flow Rate FiO2 01/03/19 06:30 Nasal Cannula 2.0 01/03/19 05:43 97 01/03/19 03:15 99.7 88 14 116/67 (83) 99.7 General: Alert, No acute distress Lungs: Other (decrease bs) Cardiovascular: S1, S2 Abdomen: Soft Neuro Exam: Alert Extremities: Other Skin: Warm Labs Laboratory Tests Test 01/01/19 12:30 01/02/19 05:30 01/03/19 06:10 Vancomycin Level Trough 13.7 mcg/mL (10.0-20.0) Vancomycin Last Dose Date 01/01/19 Vancomycin Last Dose Time 0500 Sodium Level 136 mmol/L (136-145) 139 mmol/L (136-145) Potassium Level 3.6 mmol/L (3.5-5.1) 3.6 mmol/L (3.5-5.1) Chloride Level 106 mmol/L (98-107) 107 mmol/L (98-107) Carbon Dioxide Level 21 mmol/L (21-32) 22 mmol/L (21-32) Anion Gap 9 (6-14) 10 (6-14) Blood Urea Nitrogen 10 mg/dL (7-20) 9 mg/dL (7-20) Creatinine 1.0 mg/dL (0.6-1.0) 0.9 mg/dL (0.6-1.0) Estimated GFR (Cockcroft-Gault) 64.7 73.0 Glucose Level 96 mg/dL (70-99) 96 mg/dL (70-99) Calcium Level 7.7 mg/dL (8.5-10.1) 7.9 mg/dL (8.5-10.1) BUN/Creatinine Ratio 10 (6-20) Total Bilirubin 0.3 mg/dL (0.2-1.0) Aspartate Amino Transf (AST/SGOT) 30 U/L (15-37) Alanine Aminotransferase (ALT/SGPT) 38 U/L (14-59) Alkaline Phosphatase 59 U/L (46-116) Total Protein 5.9 g/dL (6.4-8.2) Albumin 1.4 g/dL (3.4-5.0) Albumin/Globulin Ratio 0.3 (1.0-1.7) Laboratory Tests Test 01/03/19 06:10 Sodium Level 139 mmol/L (136-145) Potassium Level 3.6 mmol/L (3.5-5.1) Chloride Level 107 mmol/L (98-107) Carbon Dioxide Level 22 mmol/L (21-32) Anion Gap 10 (6-14) Blood Urea Nitrogen 9 mg/dL (7-20) Creatinine 0.9 mg/dL (0.6-1.0) Estimated GFR (Cockcroft-Gault) 73.0 BUN/Creatinine Ratio 10 (6-20) Glucose Level 96 mg/dL (70-99) Calcium Level 7.9 mg/dL (8.5-10.1) Total Bilirubin 0.3 mg/dL (0.2-1.0) Aspartate Amino Transf (AST/SGOT) 30 U/L (15-37) Alanine Aminotransferase (ALT/SGPT) 38 U/L (14-59) Alkaline Phosphatase 59 U/L (46-116) Total Protein 5.9 g/dL (6.4-8.2) Albumin 1.4 g/dL (3.4-5.0) Albumin/Globulin Ratio 0.3 (1.0-1.7) Medications Active Scripts Medications Dose Route/Sig Max Daily Dose Days Date Category No Active Prescriptions or Reported Medications Rx Impression . 1. Acute hypoxic respiratory failure secondary to multifocal pneumonia and likely sepsis. 2. Abnormal CT chest with extensive consolidation involving the right lung, especially in the right upper lobe. There is also right lower lobe pleural effusion with associated atelectasis. There are multifocal nodular opacities in the left lung and also some in the right lung, likely related to an infectious etiology. Likely septic emboli 3. History of substance abuse. 4. Severe protein-calorie malnutrition. 5. DAMEON with tricuspid vegetation. Normal EF. 6. Marked anemia with hemoglobin of 6.1.POA. No obvious GI blood loss. Plan . 1. oxygen titration to keep sat 92% via nasal cannula. 2. Broad-spectrum antibiotic per Infectious Disease. still febrile per id 3. DAMEON with right sided endocarditis 4. Follow chest x-ray as needed 5. Follow all cultures. 6. Improve nutritional status. 7. SCDs for DVT prophylaxis. 8. She has anemia. We will hold off Lovenox. 9. Consider Hematology or GI consult regarding anemia. 10. We will follow along with you. DUC SPVIEY MD Jan 03, 2019 07:27
[2019-01-03 07:40] LABS: HEMOGLOBIN 6.8 g/dL (12.0-15.5)
[2019-01-03 07:41] LABS: HEMATOCRIT 19.9 % (36.0-47.0)
[2019-01-03] MEDS: MORPHINE ER 15 MG TABLET.ER PO SCH ×2 (07:59→20:33)
[2019-01-03] MEDS: LINEZOLID 600 MG TABLET PO SCH ×2 (07:59→20:34)
[2019-01-03] MEDS: LACTOBACILLUS RHAMNOSUS GG 1 CAPSULE. PO SCH ×2 (08:00→20:33)
--- NOTE | 2019-01-03 11:29 | PDOC ---
Infectious Disease Note Subjective Subjective Feeling better over-all, good mood + neck pain, attributed to lying in bed too long Back pain ok at the moment Fever Tmax 103 last night ROS ROS per HPI Vital Sign Vital Signs Vital Signs Date Time Temp Pulse Resp B/P (MAP) Pulse Ox O2 Delivery O2 Flow Rate FiO2 01/03/19 11:00 98.0 92 18 124/80 (95) 92 Room Air 3.0 98.0 Physical Exam PHYSICAL EXAM GENERAL: Propped up in bed, alert, smiling, watching TV HEENT: CHAI, oral cavity clear NECK: Supple. good range of motion LUNGS: Improved aeration, no wheezing HEART: S1 and S2, no murmur appreciated, regular ABDOMEN: Soft and nontender, with bowel sounds present. EXTREMITIES: No gross edema or cyanosis. SKIN: Warm to touch. No signs of rash. Multiple scabs NEUROLOGIC: Alert, responds to questions appropriately. RUE-PICC (8-5) without signs of any complications. Labs Lab Laboratory Tests Test 01/03/19 06:10 White Blood Count 6.1 x10^3/uL (4.0-11.0) Red Blood Count 2.17 x10^6/uL (3.50-5.40) Hemoglobin 6.8 g/dL (12.0-15.5) Hematocrit 19.9 % (36.0-47.0) Mean Corpuscular Volume 92 fL (79-100) Mean Corpuscular Hemoglobin 31 pg (25-35) Mean Corpuscular Hemoglobin Concent 34 g/dL (31-37) Red Cell Distribution Width 18.9 % (11.5-14.5) Platelet Count 102 x10^3/uL (140-400) Sodium Level 139 mmol/L (136-145) Potassium Level 3.6 mmol/L (3.5-5.1) Chloride Level 107 mmol/L (98-107) Carbon Dioxide Level 22 mmol/L (21-32) Anion Gap 10 (6-14) Blood Urea Nitrogen 9 mg/dL (7-20) Creatinine 0.9 mg/dL (0.6-1.0) Estimated GFR (Cockcroft-Gault) 73.0 BUN/Creatinine Ratio 10 (6-20) Glucose Level 96 mg/dL (70-99) Calcium Level 7.9 mg/dL (8.5-10.1) Total Bilirubin 0.3 mg/dL (0.2-1.0) Aspartate Amino Transf (AST/SGOT) 30 U/L (15-37) Alanine Aminotransferase (ALT/SGPT) 38 U/L (14-59) Alkaline Phosphatase 59 U/L (46-116) Total Protein 5.9 g/dL (6.4-8.2) Albumin 1.4 g/dL (3.4-5.0) Albumin/Globulin Ratio 0.3 (1.0-1.7) CXR, 01/02 1. Hazy opacities throughout right lung likely combination of layering effusion and patchy infiltrates. 2. Mild left effusion and possibly basilar infiltrate. 3. Radiographic follow-up to ensure complete resolution recommende Micro 12/31. BLOOD CULTURE Preliminary NO GROWTH AFTER 3 DAYS 12/27. ([facility]) BLOOD CULTURE Final BLD CULT RESULT 1 Final Staphylococcus aureus Staphylococcus aureus CLINDAMYCIN SENSITIVE S<=0.25 ERYTHROMYCIN SENSITIVE S<=0.25 ANTIMICROBIAL SUSCEPTIBILITY Final Comment S = Susceptible; I = Intermediate; R = Resistant P = Positive; N = Negative MICS are expressed in micrograms per mL Antibiotic RSLT#1 RSLT#2 RSLT#3 RSLT#4 Ciprofloxacin S =1 Clindamycin S<=0.25 Erythromycin S<=0.25 Gentamicin S<=0.5 Levofloxacin S =0.5 Linezolid S =2 Oxacillin R>=4 Penicillin R>=0.5 Rifampin S<=0.5 Tetracycline S<=1 Trimethoprim/Sulfa S<=10 MICS are expressed in micrograms per mL Antibiotic RSLT#1 Ciprofloxacin S<=0.5 Gentamicin S<=0.5 Levofloxacin S =0.25 Linezolid S =2 Moxifloxacin S<=0.25 Oxacillin S =0.5 Penicillin R>=0.5 Quinupristin/Dalfopristin S<=0.25 Rifampin S<=0.5 Tetracycline S<=1 Trimethoprim/Sulfa S<=10 Vancomycin S<=0.5 12/31. BLOOD CULTURE Preliminary NO GROWTH AFTER 2 DAYS Objective Assessment Sepsis with MRSA & MSSA bacteremia from 12/27 ([facility]). Bacterial endocarditis of tricuspid valve. DAMEON + veg measuring 1.3 x 0.7 cm. Repeat BC 12/31 NGTD Nodular areas of airspace consolidation on CTA concerning for septic emboli Extensive multifocal pneumonia w/ pleural effusions Persistent fevers ? withdrawal h/o IVDU Anemia s/p PRBCs ? etiology on presentation - no menstration. No colored urine or bloody BMs Hepatitis C Tobacco dependent Recent miscarriage h/o E. coli (R pip) in urine Plan Plan of Care vanc and Zyvox Trough 13.7 await dapto susceptibility test. D/w micro Repeat BC 12/31 neg so far Probiotics Heroin was found in sock per nursing Blood transfusion underway LDH oredered and nml and haptoglobin ordered. May need Heme eval CBC with diff in am Attending Co-Sign Attending Co-Sign The patient was seen and interviewed as well as examined at the bedside. The chart was reviewed. The case was discussed. Agree with the plan of care. JITENDRA PAUL APRN Jan 03, 2019 11:29 GETACHEW GOMEZ MD Jan 03, 2019 13:07
[2019-01-03] MEDS: ACETAMINOPHEN 325 MG TABLET. PO PRN (11:52)
[2019-01-03] MEDS: VANCOMYCIN PER PHARMACY MC PRN (13:03)
--- NOTE | 2019-01-03 13:25 | PN ---
DATE: 01/03/2019 SUBJECTIVE: The patient is resting slightly propped up in bed, in no apparent distress. She is generally feeling better. She is definitely afebrile, although, as of yesterday, she continued to spike her temperature up to 103. Her H and H have dropped down to 6.8 and 19.9. So, we will type and cross and transfuse her 1 unit. I also discontinued her ibuprofen. PHYSICAL EXAMINATION: GENERAL: When I examined her today, she looked well and was clearly in no apparent respiratory distress, pale. No jaundice, cyanosis. No thyromegaly. No jugular venous distention. No lower limb edema. VITAL SIGNS: Her heart rate was 83, blood pressure was 113/67, temperature was 98.1, respiratory rate was 18, and oxygen saturation was 97% on 3 liters of oxygen by nasal cannula. HEAD, EYES, EARS, NOSE, AND THROAT: Normocephalic, atraumatic. NECK: Supple. HEART: Showed normal first and second heart sounds. No gallop or murmur. CHEST: Shows central trachea, equal bilateral expansion, air entry, vesicular sounds. There is crepitation posteriorly, very few scattered rhonchi. ABDOMEN: Distended, soft, nontender. NEUROLOGIC: She was awake, alert, responding appropriately. All cranial nerves intact. She moves extremities without difficulty, ambulates without assistance or assistive devices. Her intake over the last 24 hours and output were incompletely recorded. LABORATORY DATA: As of this morning, her white cell count was 6,100, hemoglobin 6.8, hematocrit 19.9, MCV 92, and platelet count 102,000. Her chemistry showed a serum sodium of 139, potassium 3.6, chloride 107, bicarbonate 22, anion gap of 10, BUN 9, creatinine 0.9, estimated GFR was 73 mL per minute. Her glucose was 96, calcium was 7.9. Total bilirubin, AST, ALT, alkaline phosphatase were normal. Total protein was 5.9, albumin 1.4. So far, her blood cultures showed no growth after 2 days; however, her blood cultures at [facility] showed growth of MRSA and MSSA. ASSESSMENT: 1. Acute hypoxic respiratory failure, for which the patient continues to be on 3 liters of oxygen. 2. Multifocal pneumonia due to septic emboli. She has vegetation on her tricuspid valve seen by transesophageal echocardiogram. She did grow gram-positive cocci identified as methicillin-resistant Staphylococcus aureus and methicillin-sensitive Staph aureus, and has anemia with hemoglobin that dropped down to 6.8 and hematocrit of 18, for which I did order type and cross and transfuse 1 unit of blood. I did discontinue her ibuprofen. PLAN: Obviously to continue the IV antibiotics in the form of vancomycin and linezolid. FABY DAWSON MD DR: TANIA/christ JOB#: [id number] / [id number]
[2019-01-03] MEDS ORDERED: ALBUTEROL SULFATE 2.5 MG/3 ML NEBU. NEB PRN (17:00)
[2019-01-04] MEDS: ACETAMINOPHEN 325 MG TABLET. PO PRN ×2 (00:12→17:30)
[2019-01-04] MEDS: fentaNYL PF VIAL 100 MCG/2 ML VIAL IV PRN (00:48)
[2019-01-04] MEDS: HYDROmorphone 2 MG/ML VIAL IV PRN ×6 (01:27→20:59)
[2019-01-04 03:48] VITALS: BP 115/74
[2019-01-04] MEDS: VANCOMYCIN 1 GM in IV NORMAL SALINE 250ML 250 ML IV SCH ×3 (06:39→21:06)
[2019-01-04 07:18] LABS: BASO % 1 % (0-3); EOS # 0.1 x10^3/uL (0.0-0.7); EOS % 1 % (0-3); HEMOGLOBIN 8.2 g/dL (12.0-15.5); LYMPH # 1.5 x10^3/uL (1.0-4.8); LYMPH % 25 % (24-48); MEAN CORPUSCULAR HEMOGLOBIN 31 pg (25-35); MEAN CORPUSCULAR HGB CONC 34 g/dL (31-37); MEAN CORPUSCULAR VOLUME 91 fL (79-100); MONO # 0.4 x10^3/uL (0.0-1.1); MONO % 7 % (0-9); NEUT # 3.9 x10^3/uL (1.8-7.7); NEUT % 66 % (31-73); PLATELET COUNT 102 x10^3/uL (140-400); RED BLOOD COUNT 2.63 x10^6/uL (3.50-5.40); RED CELL DISTRIBUTION WIDTH 17.9 % (11.5-14.5); WHITE BLOOD COUNT 5.9 x10^3/uL (4.0-11.0)
[2019-01-04 07:19] LABS: CREATININE 0.9 mg/dL (0.6-1.0); POTASSIUM 3.6 mmol/L (3.5-5.1)
--- NOTE | 2019-01-04 07:39 | PDOC ---
PULMONARY PROGRESS NOTES Subjective no soa, has occ cough, has pain all over, t max 101.3 Vitals Vital Signs Date Time Temp Pulse Resp B/P (MAP) Pulse Ox O2 Delivery O2 Flow Rate FiO2 01/04/19 06:43 22 95 Room Air 01/04/19 03:48 98.0 72 115/74 (88) 98.0 01/03/19 21:26 3.0 General: Alert, No acute distress Lungs: Other (decrease bs) Cardiovascular: S1, S2 Abdomen: Soft Neuro Exam: Alert Extremities: Other Skin: Warm Labs Laboratory Tests Test 01/03/19 06:10 01/04/19 07:00 White Blood Count 6.1 x10^3/uL (4.0-11.0) 5.9 x10^3/uL (4.0-11.0) Red Blood Count 2.17 x10^6/uL (3.50-5.40) 2.63 x10^6/uL (3.50-5.40) Hemoglobin 6.8 g/dL (12.0-15.5) 8.2 g/dL (12.0-15.5) Hematocrit 19.9 % (36.0-47.0) 24.0 % (36.0-47.0) Mean Corpuscular Volume 92 fL (79-100) 91 fL (79-100) Mean Corpuscular Hemoglobin 31 pg (25-35) 31 pg (25-35) Mean Corpuscular Hemoglobin Concent 34 g/dL (31-37) 34 g/dL (31-37) Red Cell Distribution Width 18.9 % (11.5-14.5) 17.9 % (11.5-14.5) Platelet Count 102 x10^3/uL (140-400) 102 x10^3/uL (140-400) Haptoglobin 307 mg/dL (34-200) Sodium Level 139 mmol/L (136-145) 140 mmol/L (136-145) Potassium Level 3.6 mmol/L (3.5-5.1) 3.6 mmol/L (3.5-5.1) Chloride Level 107 mmol/L (98-107) 106 mmol/L (98-107) Carbon Dioxide Level 22 mmol/L (21-32) 24 mmol/L (21-32) Anion Gap 10 (6-14) 10 (6-14) Blood Urea Nitrogen 9 mg/dL (7-20) 7 mg/dL (7-20) Creatinine 0.9 mg/dL (0.6-1.0) 0.9 mg/dL (0.6-1.0) Estimated GFR (Cockcroft-Gault) 73.0 73.0 BUN/Creatinine Ratio 10 (6-20) Glucose Level 96 mg/dL (70-99) 93 mg/dL (70-99) Calcium Level 7.9 mg/dL (8.5-10.1) 8.0 mg/dL (8.5-10.1) Total Bilirubin 0.3 mg/dL (0.2-1.0) Aspartate Amino Transf (AST/SGOT) 30 U/L (15-37) Alanine Aminotransferase (ALT/SGPT) 38 U/L (14-59) Alkaline Phosphatase 59 U/L (46-116) Lactate Dehydrogenase 142 U/L (81-234) Total Protein 5.9 g/dL (6.4-8.2) Albumin 1.4 g/dL (3.4-5.0) Albumin/Globulin Ratio 0.3 (1.0-1.7) Neutrophils (%) (Auto) 66 % (31-73) Lymphocytes (%) (Auto) 25 % (24-48) Monocytes (%) (Auto) 7 % (0-9) Eosinophils (%) (Auto) 1 % (0-3) Basophils (%) (Auto) 1 % (0-3) Neutrophils # (Auto) 3.9 x10^3/uL (1.8-7.7) Lymphocytes # (Auto) 1.5 x10^3/uL (1.0-4.8) Monocytes # (Auto) 0.4 x10^3/uL (0.0-1.1) Eosinophils # (Auto) 0.1 x10^3/uL (0.0-0.7) Basophils # (Auto) 0.0 x10^3/uL (0.0-0.2) Laboratory Tests Test 01/04/19 07:00 White Blood Count 5.9 x10^3/uL (4.0-11.0) Red Blood Count 2.63 x10^6/uL (3.50-5.40) Hemoglobin 8.2 g/dL (12.0-15.5) Hematocrit 24.0 % (36.0-47.0) Mean Corpuscular Volume 91 fL (79-100) Mean Corpuscular Hemoglobin 31 pg (25-35) Mean Corpuscular Hemoglobin Concent 34 g/dL (31-37) Red Cell Distribution Width 17.9 % (11.5-14.5) Platelet Count 102 x10^3/uL (140-400) Neutrophils (%) (Auto) 66 % (31-73) Lymphocytes (%) (Auto) 25 % (24-48) Monocytes (%) (Auto) 7 % (0-9) Eosinophils (%) (Auto) 1 % (0-3) Basophils (%) (Auto) 1 % (0-3) Neutrophils # (Auto) 3.9 x10^3/uL (1.8-7.7) Lymphocytes # (Auto) 1.5 x10^3/uL (1.0-4.8) Monocytes # (Auto) 0.4 x10^3/uL (0.0-1.1) Eosinophils # (Auto) 0.1 x10^3/uL (0.0-0.7) Basophils # (Auto) 0.0 x10^3/uL (0.0-0.2) Sodium Level 140 mmol/L (136-145) Potassium Level 3.6 mmol/L (3.5-5.1) Chloride Level 106 mmol/L (98-107) Carbon Dioxide Level 24 mmol/L (21-32) Anion Gap 10 (6-14) Blood Urea Nitrogen 7 mg/dL (7-20) Creatinine 0.9 mg/dL (0.6-1.0) Estimated GFR (Cockcroft-Gault) 73.0 Glucose Level 93 mg/dL (70-99) Calcium Level 8.0 mg/dL (8.5-10.1) Medications Active Scripts Medications Dose Route/Sig Max Daily Dose Days Date Category No Active Prescriptions or Reported Medications Rx Impression . 1. Acute hypoxic respiratory failure secondary to multifocal pneumonia and likely sepsis. 2. Abnormal CT chest with extensive consolidation involving the right lung, especially in the right upper lobe. There is also right lower lobe pleural effusion with associated atelectasis. There are multifocal nodular opacities in the left lung and also some in the right lung, likely related to an infectious etiology. Likely septic emboli 3. History of substance abuse. 4. Severe protein-calorie malnutrition. 5. DAMEON with tricuspid vegetation. Normal EF. 6. s/p Marked anemia with hemoglobin of 6.1.POA. No obvious GI blood loss. 7. Sepsis with MRSA & MSSA bacteremia from 12/27 ([facility] Plan . 1. oxygen titration to keep sat 92% via nasal cannula. 2. Broad-spectrum antibiotic per Infectious Disease. still febrile per id 3. DAMEON with right sided endocarditis 4. Follow chest x-ray as needed 5. Follow all cultures. 6. Improve nutritional status. 7. SCDs for DVT prophylaxis. 8. She has anemia. We will hold off Lovenox. 9. Consider Hematology or GI consult regarding anemia. 10. We will follow along with you. DUC SPIVEY MD Jan 04, 2019 07:39
[2019-01-04 08:30] VITALS: BP 121/78
--- NOTE | 2019-01-04 08:44 | PDOC ---
Infectious Disease Note Subjective Subjective c/o neck and back pain Not feeling good this morning Fever Tmax 101.4 Denies N/V/D/SOA ROS ROS per HPI Vital Sign Vital Signs Vital Signs Date Time Temp Pulse Resp B/P (MAP) Pulse Ox O2 Delivery O2 Flow Rate FiO2 01/04/19 06:43 22 95 Room Air 01/04/19 03:48 98.0 72 115/74 (88) 98.0 01/03/19 21:26 3.0 Physical Exam PHYSICAL EXAM GENERAL: Lying down, softly moaning HEENT: CHAI, oral cavity clear NECK: Supple. good range of motion LUNGS: Improved aeration, no wheezing HEART: S1 and S2, no murmur appreciated, regular ABDOMEN: Soft and nontender, with bowel sounds present. EXTREMITIES: No gross edema or cyanosis. SKIN: Warm to touch. No signs of rash. Multiple scabs NEUROLOGIC: Awake, responds to questions appropriately. RUE-PICC (8-5) without signs of any complications. Labs Lab Laboratory Tests Test 01/04/19 07:00 White Blood Count 5.9 x10^3/uL (4.0-11.0) Red Blood Count 2.63 x10^6/uL (3.50-5.40) Hemoglobin 8.2 g/dL (12.0-15.5) Hematocrit 24.0 % (36.0-47.0) Mean Corpuscular Volume 91 fL (79-100) Mean Corpuscular Hemoglobin 31 pg (25-35) Mean Corpuscular Hemoglobin Concent 34 g/dL (31-37) Red Cell Distribution Width 17.9 % (11.5-14.5) Platelet Count 102 x10^3/uL (140-400) Neutrophils (%) (Auto) 66 % (31-73) Lymphocytes (%) (Auto) 25 % (24-48) Monocytes (%) (Auto) 7 % (0-9) Eosinophils (%) (Auto) 1 % (0-3) Basophils (%) (Auto) 1 % (0-3) Neutrophils # (Auto) 3.9 x10^3/uL (1.8-7.7) Lymphocytes # (Auto) 1.5 x10^3/uL (1.0-4.8) Monocytes # (Auto) 0.4 x10^3/uL (0.0-1.1) Eosinophils # (Auto) 0.1 x10^3/uL (0.0-0.7) Basophils # (Auto) 0.0 x10^3/uL (0.0-0.2) Sodium Level 140 mmol/L (136-145) Potassium Level 3.6 mmol/L (3.5-5.1) Chloride Level 106 mmol/L (98-107) Carbon Dioxide Level 24 mmol/L (21-32) Anion Gap 10 (6-14) Blood Urea Nitrogen 7 mg/dL (7-20) Creatinine 0.9 mg/dL (0.6-1.0) Estimated GFR (Cockcroft-Gault) 73.0 Glucose Level 93 mg/dL (70-99) Calcium Level 8.0 mg/dL (8.5-10.1) Micro 12/31. BLOOD CULTURE Preliminary NO GROWTH AFTER 3 DAYS 12/27. ([facility]) BLOOD CULTURE Final BLD CULT RESULT 1 Final Staphylococcus aureus Staphylococcus aureus CLINDAMYCIN SENSITIVE S<=0.25 ERYTHROMYCIN SENSITIVE S<=0.25 ANTIMICROBIAL SUSCEPTIBILITY Final Comment S = Susceptible; I = Intermediate; R = Resistant P = Positive; N = Negative MICS are expressed in micrograms per mL Antibiotic RSLT#1 RSLT#2 RSLT#3 RSLT#4 Ciprofloxacin S =1 Clindamycin S<=0.25 Erythromycin S<=0.25 Gentamicin S<=0.5 Levofloxacin S =0.5 Linezolid S =2 Oxacillin R>=4 Penicillin R>=0.5 Rifampin S<=0.5 Tetracycline S<=1 Trimethoprim/Sulfa S<=10 MICS are expressed in micrograms per mL Antibiotic RSLT#1 Ciprofloxacin S<=0.5 Gentamicin S<=0.5 Levofloxacin S =0.25 Linezolid S =2 Moxifloxacin S<=0.25 Oxacillin S =0.5 Penicillin R>=0.5 Quinupristin/Dalfopristin S<=0.25 Rifampin S<=0.5 Tetracycline S<=1 Trimethoprim/Sulfa S<=10 Vancomycin S<=0.5 12/31. BLOOD CULTURE Preliminary NO GROWTH AFTER 2 DAYS Objective Assessment Fever persists but maybe sec to PRBCs also Sepsis with MRSA & MSSA bacteremia from 12/27 ([facility]). Bacterial endocarditis of tricuspid valve. DAMEON + veg measuring 1.3 x 0.7 cm. Repeat BC 12/31 NGTD Nodular areas of airspace consolidation on CTA concerning for septic emboli Extensive multifocal pneumonia w/ pleural effusions Persistent fevers ? withdrawal h/o IVDU Anemia s/p PRBCs. LDH nml; haptoglobin 307 Hepatitis C Tobacco dependent Recent miscarriage h/o E. coli (R pip) in urine Plan Plan of Care COnt vanc and Zyvox Trough 13.7 await dapto susceptibility test. D/w micro Repeat BC 12/31 neg so far Probiotics Heroin was found in sock per nursing Monitor labs D/w nursing If fever persists may need imaging but clinically looks better Attending Co-Sign Attending Co-Sign The patient was seen and interviewed as well as examined at the bedside. The chart was reviewed. The case was discussed. Agree with the plan of care. JITENDRA PAUL APRN Jan 04, 2019 08:44 GETACHEW GOMEZ MD Jan 04, 2019 12:14
[2019-01-04] MEDS: LACTOBACILLUS RHAMNOSUS GG 1 CAPSULE. PO SCH ×2 (08:47→20:57)
[2019-01-04] MEDS: LINEZOLID 600 MG TABLET PO SCH ×2 (08:47→20:58)
[2019-01-04] MEDS: MORPHINE ER 15 MG TABLET.ER PO SCH ×2 (08:48→20:58)
[2019-01-04] MEDS: IV NORMAL SALINE 1000ML BAG 1,000 ML IV SCH ×2 (10:08→21:03)
[2019-01-04 11:59] VITALS: BP 126/81
--- NOTE | 2019-01-04 12:15 | PN ---
DATE: 01/04/2019 SUBJECTIVE: The patient is resting slightly propped up in bed, in no apparent respiratory distress. She is awake, alert, continued to spike her temperature yesterday up to 101.4. She has grown MSSA and MRSA from the blood cultures grown in [facility] where she is on both Zyvox and vancomycin. PHYSICAL EXAMINATION: GENERAL: She continued to complain of aches and pains requiring pain medication constantly; however, when I saw her this morning, she looked well and was clearly in no apparent respiratory distress, pale, but no jaundice, cyanosis, or thyromegaly. No jugular venous distension. No limb edema. VITAL SIGNS: Her heart rate was 92, blood pressure 121/78, temperature was 98, respiratory rate 22, and oxygen saturation was 92%. The rest of clinical examination is stable, has not really changed. ASSESSMENT AND PLAN: 1. Acute hypoxic respiratory failure for which the patient continues to be on 3 liters of oxygen. 2. Multilobar pneumonia due to septic emboli. The patient has vegetation on her tricuspid valve seen by transesophageal echocardiogram. 3. She has grown MRSA, MSSA for which she is now on both vancomycin and Zosyn. 4. Anemia for which she received 2 units of packed RBCs so far. Plan is to continue with IV antibiotics in the form of vancomycin and linezolid. Continue pain management. FABY DAWSON MD DR: TANIA/christ JOB#: [id number] / [id number]
[2019-01-04] MEDS: VANCOMYCIN PER PHARMACY MC PRN (14:47)
--- NOTE | 2019-01-04 14:48 | NUR ---
Pharmacy Vancomycin Dosing Note S: Consulted to monitor and dose vancomycin started 12/27/18. O: SUSIE SO is a 33 year old F with MRSA bacteremia, endocarditis, pneumonia. Other Antibiotics: ZYVOX 600 MG PO Q12HRS LABS: Last BUN: 7 Last Creatinine: 0.9 Creatinine Clearance: 85 mL/min Last WBC: 5.9 Last Procalcitonin: 0.73 Tmax (past 24 hours): 101.4 Microbiology: BLOOD CX ([facility]): MRSA + MSSA REPEAL CX ([facility]): NGTD I/O: 550/1 void Drug Levels: Last Trough level: 20 on 01/04/19 at 1330 Last dose given 01/04/19 at 0645 Vancomycin Dosing: Dosing Weight: Actual Target Trough: 15-20 A: Patient is receiving vancomycin 1000 mg IV q8hrs. A trough of 20 mcg/ml is within goal range. Renal function remains improved from baseline and stable. For this given indication, a vancomycin trough of 20 or just above is definitely acceptable. P: 1. Continue Vancomycin 1000 mg IV q8h 2. Follow up levels in 5 - 7 days or if renal function changes occur 3. Pharmacy will continue to monitor, follow and adjust therapy as needed. ISIDRO STEPHENS, [facility], 01/04/19 [id number]
[2019-01-04 15:00] VITALS: BP 137/86
[2019-01-04 19:50] VITALS: BP 115/69
[2019-01-04 23:15] VITALS: BP 120/79
[2019-01-05] MEDS: HYDROmorphone 2 MG/ML VIAL IV PRN ×3 (01:01→08:25)
[2019-01-05 03:30] VITALS: BP 129/83
[2019-01-05] MEDS: IV NORMAL SALINE 1000ML BAG 1,000 ML IV SCH ×2 (04:00→08:26)
[2019-01-05] MEDS: VANCOMYCIN 1 GM in IV NORMAL SALINE 250ML 250 ML IV SCH ×3 (05:15→21:42)
[2019-01-05 07:00] VITALS: BP 127/87
[2019-01-05] MEDS: MORPHINE ER 15 MG TABLET.ER PO SCH ×2 (08:24→19:56)
[2019-01-05] MEDS: LACTOBACILLUS RHAMNOSUS GG 1 CAPSULE. PO SCH ×2 (08:24→19:57)
[2019-01-05] MEDS: LINEZOLID 600 MG TABLET PO SCH ×2 (08:24→19:56)
--- NOTE | 2019-01-05 09:14 | PDOC ---
PULMONARY PROGRESS NOTES Subjective no soa, has occ cough, has pain all over, t max 101.3 Vitals Vital Signs Date Time Temp Pulse Resp B/P (MAP) Pulse Ox O2 Delivery O2 Flow Rate FiO2 01/05/19 08:26 18 Room Air 01/05/19 07:00 99.9 90 127/87 (100) 93 99.9 General: Alert, No acute distress Lungs: Other (decrease bs) Cardiovascular: S1, S2 Abdomen: Soft Neuro Exam: Alert Extremities: Other Skin: Warm Labs Laboratory Tests Test 01/04/19 07:00 01/04/19 13:55 White Blood Count 5.9 x10^3/uL (4.0-11.0) Red Blood Count 2.63 x10^6/uL (3.50-5.40) Hemoglobin 8.2 g/dL (12.0-15.5) Hematocrit 24.0 % (36.0-47.0) Mean Corpuscular Volume 91 fL (79-100) Mean Corpuscular Hemoglobin 31 pg (25-35) Mean Corpuscular Hemoglobin Concent 34 g/dL (31-37) Red Cell Distribution Width 17.9 % (11.5-14.5) Platelet Count 102 x10^3/uL (140-400) Neutrophils (%) (Auto) 66 % (31-73) Lymphocytes (%) (Auto) 25 % (24-48) Monocytes (%) (Auto) 7 % (0-9) Eosinophils (%) (Auto) 1 % (0-3) Basophils (%) (Auto) 1 % (0-3) Neutrophils # (Auto) 3.9 x10^3/uL (1.8-7.7) Lymphocytes # (Auto) 1.5 x10^3/uL (1.0-4.8) Monocytes # (Auto) 0.4 x10^3/uL (0.0-1.1) Eosinophils # (Auto) 0.1 x10^3/uL (0.0-0.7) Basophils # (Auto) 0.0 x10^3/uL (0.0-0.2) Sodium Level 140 mmol/L (136-145) Potassium Level 3.6 mmol/L (3.5-5.1) Chloride Level 106 mmol/L (98-107) Carbon Dioxide Level 24 mmol/L (21-32) Anion Gap 10 (6-14) Blood Urea Nitrogen 7 mg/dL (7-20) Creatinine 0.9 mg/dL (0.6-1.0) Estimated GFR (Cockcroft-Gault) 73.0 Glucose Level 93 mg/dL (70-99) Calcium Level 8.0 mg/dL (8.5-10.1) Vancomycin Level Trough 20.0 mcg/mL (10.0-20.0) Vancomycin Last Dose Date Unk Vancomycin Last Dose Time Unk Laboratory Tests Test 01/04/19 13:55 Vancomycin Level Trough 20.0 mcg/mL (10.0-20.0) Vancomycin Last Dose Date Unk Vancomycin Last Dose Time Unk Medications Active Scripts Medications Dose Route/Sig Max Daily Dose Days Date Category No Active Prescriptions or Reported Medications Rx Impression . 1. Acute hypoxic respiratory failure secondary to multifocal pneumonia 2. Abnormal CT chest SEPTIC EMBOLI 3. History of substance abuse. 4. Severe protein-calorie malnutrition. 5. DAMEON with tricuspid vegetation. Normal EF. 6. s/p Marked anemia with hemoglobin of 6.1.POA. No obvious GI blood loss. 7. Sepsis with MRSA & MSSA bacteremia from 12/27 ([facility]). Plan . RESP STATUS IS COMPENSATED WILL SEE PRN ANTI BX PER KIMBERLY MERRILL MD Jan 05, 2019 09:14
--- NOTE | 2019-01-05 10:29 | PDOC ---
Infectious Disease Note Subjective Subjective pt is feeling better ROS ROS no n/v/d/sob Vital Sign Vital Signs Vital Signs Date Time Temp Pulse Resp B/P (MAP) Pulse Ox O2 Delivery O2 Flow Rate FiO2 01/05/19 08:26 18 Room Air 01/05/19 08:00 3.0 01/05/19 07:00 99.9 90 127/87 (100) 93 99.9 Physical Exam PHYSICAL EXAM GENERAL: Lying down, softly moaning HEENT: CHAI, oral cavity clear NECK: Supple. good range of motion LUNGS: Improved aeration, no wheezing HEART: S1 and S2, no murmur appreciated, regular ABDOMEN: Soft and nontender, with bowel sounds present. EXTREMITIES: No gross edema or cyanosis. SKIN: Warm to touch. No signs of rash. Multiple scabs NEUROLOGIC: Awake, responds to questions appropriately. RUE-PICC (8-5) without signs of any complications. Labs Lab Laboratory Tests Test 01/04/19 13:55 Vancomycin Level Trough 20.0 mcg/mL (10.0-20.0) Vancomycin Last Dose Date Unk Vancomycin Last Dose Time Unk Micro Microbiology 12/31/18 Blood Culture - Preliminary, Resulted NO GROWTH AFTER 4 DAYS 12/31. BLOOD CULTURE Preliminary NO GROWTH AFTER 3 DAYS 12/27. ([facility]) BLOOD CULTURE Final BLD CULT RESULT 1 Final Staphylococcus aureus Staphylococcus aureus CLINDAMYCIN SENSITIVE S<=0.25 ERYTHROMYCIN SENSITIVE S<=0.25 ANTIMICROBIAL SUSCEPTIBILITY Final Comment S = Susceptible; I = Intermediate; R = Resistant P = Positive; N = Negative MICS are expressed in micrograms per mL Antibiotic RSLT#1 RSLT#2 RSLT#3 RSLT#4 Ciprofloxacin S =1 Clindamycin S<=0.25 Erythromycin S<=0.25 Gentamicin S<=0.5 Levofloxacin S =0.5 Linezolid S =2 Oxacillin R>=4 Penicillin R>=0.5 Rifampin S<=0.5 Tetracycline S<=1 Trimethoprim/Sulfa S<=10 MICS are expressed in micrograms per mL Antibiotic RSLT#1 Ciprofloxacin S<=0.5 Gentamicin S<=0.5 Levofloxacin S =0.25 Linezolid S =2 Moxifloxacin S<=0.25 Oxacillin S =0.5 Penicillin R>=0.5 Quinupristin/Dalfopristin S<=0.25 Rifampin S<=0.5 Tetracycline S<=1 Trimethoprim/Sulfa S<=10 Vancomycin S<=0.5 Objective Assessment Fever persists but maybe sec to PRBCs also Sepsis with MRSA & MSSA bacteremia from 12/27 ([facility]). Bacterial endocarditis of tricuspid valve. DAMEON + veg measuring 1.3 x 0.7 cm. Repeat BC 12/31 NGTD Nodular areas of airspace consolidation on CTA concerning for septic emboli Extensive multifocal pneumonia w/ pleural effusions Persistent fevers ? withdrawal h/o IVDU Anemia s/p PRBCs. LDH nml; haptoglobin 307 Hepatitis C Tobacco dependent Recent miscarriage h/o E. coli (R pip) in urine Plan Plan of Care COnt vanc and Zyvox ,,, will change to dapto Trough 13.7 await dapto susceptibility test. D/w micro Repeat BC 12/31 neg so far Probiotics Heroin was found in sock per nursing Monitor labs D/w nursing CAITIE CATHERINE MD Jan 05, 2019 10:29
[2019-01-05 11:00] VITALS: BP 157/86
[2019-01-05] MEDS: oxyCODONE IR 5 MG TABLET PO PRN (12:41)
[2019-01-05] MEDS: VANCOMYCIN PER PHARMACY MC PRN (14:29)
--- NOTE | 2019-01-05 14:48 | NUR ---
SS following up with discharge planning. SS spoke with ID, Dr. Rodrigez, and outpatient Dapto was recommended for discharge. Pt is self pay pt. SS spoke with Dontae in pharmacy and Dontae reported that pt would qualify for assistance with outpatient Dapto at [facility] and [facility]. Pt would prefer to go to [facility] for outpatient IV antibiotics. SS phoned and faxed demographics to Margaret Grier, [phone]; fax [phone]. Margaret reported that she would discuss with Satsuma's team and would notify SS of acceptance decision.
[2019-01-05 15:00] VITALS: BP 151/89
[2019-01-05] MEDS: ACETAMINOPHEN 325 MG TABLET. PO PRN (16:37)
[2019-01-05] MEDS: fentaNYL PF VIAL 100 MCG/2 ML VIAL IV PRN ×2 (16:49→21:43)
[2019-01-05 19:45] VITALS: BP 147/105
[2019-01-05 23:20] VITALS: BP 136/79
--- NOTE | 2019-01-05 23:52 | PN ---
DATE: 01/05/2019 SUBJECTIVE: The patient is resting, slightly propped up in bed, in no apparent distress. She continued to spike her temperature up to 100.1, otherwise generally she is feeling much better. She is eating and drinking, has been up and about, generally much improved. PHYSICAL EXAMINATION: GENERAL: When I examined her this morning, she looked well and was clearly in no apparent respiratory distress, pale. No jaundice, cyanosis, or thyromegaly. No jugular venous distention. No lower limb edema. VITAL SIGNS: Her heart rate was 90, blood pressure was 127/87, temperature was 99.9, respiratory rate was 18, and oxygen saturation was 93% on 3 liters of oxygen. HEAD, EYES, EARS, NOSE AND THROAT: Normocephalic, atraumatic. NECK: Supple. HEART: Showed normal first and second heart sounds with no gallop, rub or murmur. CHEST: Clear to auscultation. No crepitation or rhonchi. ABDOMEN: Distended, soft, and nontender. No guarding or rigidity. No organomegaly. All hernial orifices are intact. Bowel sounds normal. NEUROLOGIC: She is awake, alert, and responding appropriately. All cranial nerves are intact. She moves extremities without difficulty. She ambulates without assistance or assistive devices. Her intake was 550, no output was recorded. LABORATORY DATA: Her most recent lab work showed a white cell count of 5900, hemoglobin 8.2, hematocrit 24, MCV 91, and platelet count 102,000. Chemistry showed a serum sodium 140, potassium 3.6, chloride 106, bicarbonate 24, anion gap of 10, BUN 7, creatinine 0.9, estimated GFR was 73 mL per minute, glucose 93, and calcium was 8. ASSESSMENT: 1. Acute hypoxic respiratory failure, for which the patient continues to be on 3 liters of oxygen. 2. Multilobar pneumonia due to septic emboli. The patient has regurgitation, no tricuspid valve seen by transesophageal echocardiogram. 3. She has grown MRSA and MSSA, for which she is on both vancomycin and Zosyn. For anemia, she received so far 2 units of packed RBCs. PLAN: Continue IV antibiotic. Continue with pain management and I will discontinue her IV hydromorphone and start her on oral pain medication. FABY DAWSON MD DR: Alberto JOB#: [id number] / [id number]
[2019-01-06] MEDS: oxyCODONE IR 5 MG TABLET PO PRN (00:12)
[2019-01-06] MEDS: fentaNYL PF VIAL 100 MCG/2 ML VIAL IV PRN ×4 (01:28→15:21)
[2019-01-06] MEDS: ACETAMINOPHEN 325 MG TABLET. PO PRN (01:29)
[2019-01-06 03:30] VITALS: BP 133/83
[2019-01-06] MEDS: VANCOMYCIN 1 GM in IV NORMAL SALINE 250ML 250 ML IV SCH (05:44)
[2019-01-06 07:00] VITALS: BP 144/87
[2019-01-06] MEDS: LACTOBACILLUS RHAMNOSUS GG 1 CAPSULE. PO SCH (08:24)
[2019-01-06] MEDS: MORPHINE ER 15 MG TABLET.ER PO SCH (08:24)
[2019-01-06] MEDS: LINEZOLID 600 MG TABLET PO SCH (08:24)
--- NOTE | 2019-01-06 08:42 | PDOC ---
Infectious Disease Note Subjective Subjective pt is feeling better ROS ROS No n/v/d/fever Vital Sign Vital Signs Vital Signs Date Time Temp Pulse Resp B/P (MAP) Pulse Ox O2 Delivery O2 Flow Rate FiO2 01/06/19 08:25 Room Air 01/06/19 07:00 98.5 90 18 144/87 (106) 91 98.5 01/05/19 08:00 3.0 Physical Exam PHYSICAL EXAM GENERAL: Lying down, comfortable HEENT: CHAI, oral cavity clear NECK: Supple. good range of motion LUNGS: Improved aeration, no wheezing HEART: S1 and S2, no murmur appreciated, regular ABDOMEN: Soft and nontender, with bowel sounds present. EXTREMITIES: No gross edema or cyanosis. SKIN: Warm to touch. No signs of rash. Multiple scabs NEUROLOGIC: Awake, responds to questions appropriately.no focal deficit RUE-PICC (8-5) without signs of any complications. Labs Micro Microbiology 12/31/18 Blood Culture - Preliminary, Resulted NO GROWTH AFTER 4 DAYS 12/31. BLOOD CULTURE Preliminary NO GROWTH AFTER 3 DAYS 12/27. ([facility]) BLOOD CULTURE Final BLD CULT RESULT 1 Final Staphylococcus aureus Staphylococcus aureus CLINDAMYCIN SENSITIVE S<=0.25 ERYTHROMYCIN SENSITIVE S<=0.25 ANTIMICROBIAL SUSCEPTIBILITY Final Comment S = Susceptible; I = Intermediate; R = Resistant P = Positive; N = Negative MICS are expressed in micrograms per mL Antibiotic RSLT#1 RSLT#2 RSLT#3 RSLT#4 Ciprofloxacin S =1 Clindamycin S<=0.25 Erythromycin S<=0.25 Gentamicin S<=0.5 Levofloxacin S =0.5 Linezolid S =2 Oxacillin R>=4 Penicillin R>=0.5 Rifampin S<=0.5 Tetracycline S<=1 Trimethoprim/Sulfa S<=10 MICS are expressed in micrograms per mL Antibiotic RSLT#1 Ciprofloxacin S<=0.5 Gentamicin S<=0.5 Levofloxacin S =0.25 Linezolid S =2 Moxifloxacin S<=0.25 Oxacillin S =0.5 Penicillin R>=0.5 Quinupristin/Dalfopristin S<=0.25 Rifampin S<=0.5 Tetracycline S<=1 Trimethoprim/Sulfa S<=10 Vancomycin S<=0.5 Objective Assessment Fever persists but maybe sec to PRBCs also Sepsis with MRSA & MSSA bacteremia from 12/27 ([facility]). Bacterial endocarditis of tricuspid valve. DAMEON + veg measuring 1.3 x 0.7 cm. Repeat BC 12/31 NGTD Nodular areas of airspace consolidation on CTA concerning for septic emboli Extensive multifocal pneumonia w/ pleural effusions Persistent fevers ? withdrawal h/o IVDU Anemia s/p PRBCs. LDH nml; haptoglobin 307 Hepatitis C Tobacco dependent Recent miscarriage h/o E. coli (R pip) in urine Plan Plan of Care COnt vanc and Zyvox ,,, will change to dapto Trough 13.7 await dapto susceptibility test. D/w micro Repeat BC 12/31 neg so far Probiotics Heroin was found in sock per nursing Monitor labs D/w nursing CAITIE CATHERINE MD Jan 06, 2019 08:42
--- NOTE | 2019-01-06 09:06 | PDOC ---
PULMONARY PROGRESS NOTES Subjective no soa, has occ cough, has pain all over, t max 101.3 Vitals Vital Signs Date Time Temp Pulse Resp B/P (MAP) Pulse Ox O2 Delivery O2 Flow Rate FiO2 01/06/19 08:25 Room Air 01/06/19 08:00 3.0 01/06/19 07:00 98.5 90 18 144/87 (106) 91 98.5 General: Alert, No acute distress Lungs: Other (decrease bs) Cardiovascular: S1, S2 Abdomen: Soft Neuro Exam: Alert Extremities: Other Skin: Warm Labs Laboratory Tests Test 01/04/19 13:55 Vancomycin Level Trough 20.0 mcg/mL (10.0-20.0) Vancomycin Last Dose Date Unk Vancomycin Last Dose Time Unk Medications Active Scripts Medications Dose Route/Sig Max Daily Dose Days Date Category No Active Prescriptions or Reported Medications Rx Impression . 1. Acute hypoxic respiratory failure secondary to multifocal pneumonia 2. Abnormal CT chest SEPTIC EMBOLI 3. History of substance abuse. 4. Severe protein-calorie malnutrition. 5. DAMEON with tricuspid vegetation. Normal EF. 6. s/p Marked anemia with hemoglobin of 6.1.POA. No obvious GI blood loss. 7. Sepsis with MRSA & MSSA bacteremia from 12/27 ([facility]). Plan . RESP STATUS IS COMPENSATED WILL SEE PRN ANTI BX PER KIMBERLY MERRILL MD Jan 06, 2019 09:06
--- NOTE | 2019-01-06 10:50 | PN ---
DATE: 01/06/2019 SUBJECTIVE: The patient is resting flat, sleeping comfortably, in no apparent distress. On questioning her, denied any complaint. The nursing staff did not voice any concern and stated that she had an uneventful night. She has been afebrile at least since last night. PHYSICAL EXAMINATION: GENERAL: When I examined her today, she looked pale, no jaundice, cyanosis or thyromegaly. No jugular venous distention. No lower limb edema. VITAL SIGNS: Her heart rate was 90, blood pressure 144/87, temperature was 98.5, respiratory rate was 18 and oxygen saturation was 91%. The rest of the examination is stable, has not really changed. Her intake over the last 24 hours and output incompletely recorded. LABORATORY DATA: Most recent lab work showed a BUN of 7, creatinine 0.9. Her most recent hemoglobin is 8.2, hematocrit 24. ASSESSMENT: 1. Acute hypoxic respiratory failure for which the patient continues to be on 3 liters of oxygen. 2. Multilobar pneumonia. 3. Aseptic emboli. 4. The patient has vegetation on her tricuspid valve seen on transesophageal echocardiogram. 5. She has grown MRSA and MSSA for which she is on both vancomycin and Zosyn. 6. Anemia for which she received 2 units of packed RBCs. 7. Intravenous drug abuse. PLAN: Continue with IV antibiotic. Continue with pain management. I have discontinued her IV hydromorphone. She is now on oral pain medication. Awaiting the subsidence of her fever completely that she can be discharged, to continue IV antibiotic as an outpatient at [facility]. FABY DAWSON MD DR: TANIA/christ JOB#: [id number] / [id number]
[2019-01-06 11:00] VITALS: BP 145/91
[2019-01-06] MEDS ORDERED: DAPTOMYCIN FOR PT ASSIST PROG IV SCH (14:00)
[2019-01-06] MEDS ORDERED: NORMAL SALINE IV SCH (14:00)
--- NOTE | 2019-01-06 14:25 | NUR ---
SS following up with discharge planning. [facility] deferred to [facility] for outpatient IV infusions. SS phoned and faxed scripts and clinical for Dapto to outpatient, [phone]; fax [phone]. Pt approved and scheduled for 1200 on 01/07/2019. SS met with pt in room and discussed. Pt agreeable and stated that she has adequate transportation. Pt's RN notified.
[2019-01-06 15:00] VITALS: BP 148/87
[2019-01-06 16:11] LABS: BASO % 0 % (0-3); EOS % 1 % (0-3); HEMATOCRIT 28.6 % (36.0-47.0); HEMOGLOBIN 10.1 g/dL (12.0-15.5); LYMPH # 1.9 x10^3/uL (1.0-4.8); LYMPH % 26 % (24-48); MEAN CORPUSCULAR HEMOGLOBIN 31 pg (25-35); MEAN CORPUSCULAR HGB CONC 35 g/dL (31-37); MEAN CORPUSCULAR VOLUME 89 fL (79-100); MONO # 0.5 x10^3/uL (0.0-1.1); MONO % 7 % (0-9); NEUT # 4.8 x10^3/uL (1.8-7.7); NEUT % 66 % (31-73); PLATELET COUNT 102 x10^3/uL (140-400); RED BLOOD COUNT 3.22 x10^6/uL (3.50-5.40); RED CELL DISTRIBUTION WIDTH 17.7 % (11.5-14.5); WHITE BLOOD COUNT 7.3 x10^3/uL (4.0-11.0)
--- NOTE | 2019-01-06 16:42 | NUR ---
Discharge Note: [facility] Discharge instructions and discharge home medications reviewed with Patient and a copy given. All questions have been answered and understanding verbalized. The following instructions and handouts were given: Endocarditis Right arm picc line intact. Patient discharged to home with self care via ambulation
== END 2019-01-06 16:44 | disposition home or self-care (01) | DRG 193 ==
LOC: 1 WEST ICU 22:53 → 2 SOUTH 01-01 20:12
PROVIDERS: ADMIT Internal Medicine; ATTEND Internal Medicine
PROC: 30233N1 Transfusion of Nonautologous Red Blood Cells into Peripheral Vein, Percutaneous Approach (ICD-10-PCS; principal; 2018-12-31)
PROC: B24BZZ4 Ultrasonography of Heart with Aorta, Transesophageal (ICD-10-PCS; 2019-01-01)
DX: J18.1 Lobar pneumonia, unspecified organism (principal); J96.01 Acute respiratory failure with hypoxia; E43 Unspecified severe protein-calorie malnutrition; I33.0 Acute and subacute infective endocarditis; J90 Pleural effusion, not elsewhere classified; J98.11 Atelectasis; I76 Septic arterial embolism; F17.210 Nicotine dependence, cigarettes, uncomplicated; E87.6 Hypokalemia; D69.6 Thrombocytopenia, unspecified; I27.20 Pulmonary hypertension, unspecified; B18.2 Chronic viral hepatitis C; F41.9 Anxiety disorder, unspecified; D64.9 Anemia, unspecified; F19.10 Other psychoactive substance abuse, uncomplicated; I07.9 Rheumatic tricuspid valve disease, unspecified; Z88.8 Allergy status to other drugs, medicaments and biological substances; Z80.3 Family history of malignant neoplasm of breast; Z68.22 Body mass index [BMI] 22.0-22.9, adult
CPT/HCPCS: 36415; 71045; 76376; 80048; 80053; 80202; 82565; 83010; 83615; 84145; 85014; 85018; 85025; 85027; 86850; 86900; 86901; 86920; 87040; 87641; 93312; 93325; 94760; 99406; J0692; J0878; J1170; J2060; J2543; J2704; J3010; J3370; J7030; J7050; P9016; G0378

== ENCOUNTER 2019-07-07 07:01 | Emergency (ER) | payer SELFPAY ==
[~2019-07-07] VITALS: Ht 165.1 cm; Wt 54.0 kg
[2019-07-07 07:41] VITALS: BP 154/79
[2019-07-07 08:26] LABS: INFLUENZA A PATIENT POSITIVE (NEGATIVE); INFLUENZA B PATIENT NEGATIVE (NEGATIVE)
--- NOTE | 2019-07-07 08:41 | PHYS DOC ---
Past Medical History Past Medical History: Anxiety Past Surgical History: Other Additional Past Surgical Histo: dental, lung sugery Smoking Status: Current Every Day Smoker Alcohol Use: None Drug Use: None Adult General Chief Complaint Chief Complaint: FEVER HPI HPI Patient is a 33 year old female with history of anxiety who presents with complaint of flulike symptom. Patient complaining of subjective fever, dry cough, nasal congestion, myalgia, nausea and vomiting, headache and sore throat, earache for the last 3 days that gradually getting worse. Patient rated her pain 10 over 10 and that she took [id number] medication without improvement of her condition. Review of Systems Review of Systems Constitutional: Reports fever and chills Eyes: Denies change in visual acuity, redness, or eye pain [] HENT: Reports nasal congestion and sore throat Respiratory: Reports cough Cardiovascular: No additional information not addressed in HPI [] GI: Denies abdominal pain, nausea, bloody stools or diarrhea [] : Denies dysuria or hematuria [] Musculoskeletal: Denies back pain or joint pain [] Integument: Denies rash or skin lesions [] Neurologic: Denies headache, focal weakness or sensory changes [] Endocrine: Denies polyuria or polydipsia [] All other systems were reviewed and found to be within normal limits, except as documented in this note. Current Medications Current Medications Current Medications Medications (Trade) Dose Ordered Sig/Tex Start Time Stop Time Status Last Admin Dose Admin Acetaminophen/ Hydrocodone Bitart (Lortab 5/325) 1 tab 1X ONCE 07/07/19 09:00 07/07/19 09:08 DC 07/07/19 09:12 1 TAB Allergies Allergies Allergies Coded Allergies Type Severity Reaction Last Updated Verified paroxetine Allergy Intermediate Swelling 01/15/19 Yes I S O L A T I O N *CONTACT* Allergy Unknown 01/15/19 Yes Physical Exam Physical Exam Constitutional: Well developed, well nourished, mild acute distress, non-toxic appearance. [] HENT: Normocephalic, atraumatic, bilateral external ears normal, oropharynx moist, pharyngeal erythema, no oral exudates, nasal congestion. [] Eyes: PERRLA, EOMI, conjunctiva normal, no discharge. [] Neck: Normal range of motion, no tenderness, supple, no stridor. [] Cardiovascular: Tachycardia, no murmur [] Lungs & Thorax: Bilateral breath sounds clear to auscultation [] Back: No tenderness, no CVA tenderness. [] Extremities: No tenderness, no cyanosis, no clubbing, ROM intact, no edema. [] Neurologic: Alert and oriented X 3, normal motor function, normal sensory function, no focal deficits noted. [] Psychologic: Affect anxious, mood normal. [] Current Patient Data Vital Signs Vital Signs Date Time Temp Pulse Resp B/P (MAP) Pulse Ox O2 Delivery O2 Flow Rate FiO2 07/07/19 09:12 20 98 Room Air 07/07/19 09:10 120 07/07/19 07:41 98.5 154/79 (104) 98.5 Lab Values Laboratory Tests Test 07/07/19 07:48 Influenza Type A Antigen Positive (NEGATIVE) Influenza Type B Antigen Negative (NEGATIVE) EKG EKG [] Radiology/Procedures Radiology/Procedures [] Course & Med Decision Making Course & Med Decision Making Pertinent Labs reviewed. (See chart for details) discharge: I've spoken with the patient and/or caregivers. I've explained the patient's condition, diagnosis and treatment plan based on information available to me at this time. I've answered the patient's and/or caregivers questions and addressed any concerns. The patient and/or caregivers have a good understanding the patient's diagnosis, condition and treatment plan as can be expected at this point. Vital signs have been stabilized. The patient's condition is stable for discharge from the emergency department. The patient will pursue further outpatient evaluation with her primary care provider or other designated consulting physician as outlined in the discharge instructions. Patient and/or caregivers are agreeable to this plan of care and follow-up instructions have been explained in detail. The patient and/or caregivers have received these instructions in written format and expressed understanding of these discharge instructions. The patient and her caregivers are aware that if any significant change in condition or worsening of symptoms should prompt him to immediately return to this of the closest emergency department. If an emergent department is not readily available I would encourage him to call 911. Jesus Disclaimer Michaelon Disclaimer This electronic medical record was generated, in whole or in part, using a voice recognition dictation system. Departure Departure Impression: Primary Impression: Influenza A Disposition: HOME, SELF-CARE Condition: STABLE Referrals: NO PCP (PCP) Patient Instructions: Cough, Adult, Fever, Adult, Influenza A (H1N1), Smoking C essation, Tips For Success Additional Instructions: Drink plenty of liquids Follow-up with your primary care physician in 3-5 days Return to ER if not getting better Take alternate Tylenol and ibuprofen every 4 hours as needed for fever and pain Thank you for visiting [facility]. We appreciate you trusting us with your care. If any additional problems come up don't hesitate to return to visit us. Please follow up with your primary care provider so they can plan additional care if needed and know about the problem that you had. If symptoms worsen come back to the Emergency Department. Any concerning symptoms that start such as chest pain, shortness of air, weakness or numbness on one side of the body, running high fevers or any other concerning symptoms return to the ER. Scripts Naproxen (NAPROSYN) 500 Mg Tablet 1 TAB PO BID for pain, #20 TAB Prov: JESE WU MD 07/07/19 Hydrocodone/Apap 5-325 (NORCO 5-325 TABLET) 1 Each Tablet 1 TAB PO PRN Q6HRS PRN for PAIN, #10 TAB 0 Refills Prov: JESE WU MD 07/07/19 Benzonatate (TESSALON PERLE) 100 Mg Capsule 1 CAP PO TID for cough, #21 CAP Prov: JESE WU MD 07/07/19 Oseltamivir Phosphate (TAMIFLU) 75 Mg Capsule 1 CAP PO BID, #10 CAP Prov: JESE WU MD 07/07/19 JESE WU MD Jul 07, 2019 08:41
[2019-07-07] MEDS ORDERED: NAPR-683 PO (09:00)
[2019-07-07] MEDS ORDERED: HYDR-3164 PO (09:00)
[2019-07-07] MEDS ORDERED: OSEL75CA PO (09:00)
[2019-07-07] MEDS ORDERED: BENZ100C PO (09:00)
[2019-07-07] MEDS ORDERED: HYDROcodone/APAP 5/325MG 1 TAB TABLET PO ONE (09:00)
== END 2019-07-07 09:14 | disposition home or self-care (01) ==
LOC: ER 07:01
DX: J10.1 Influenza due to other identified influenza virus with other respiratory manifestations (principal); F17.200 Nicotine dependence, unspecified, uncomplicated; Z91.041 Radiographic dye allergy status; Z88.8 Allergy status to other drugs, medicaments and biological substances
CPT/HCPCS: 87804; 99283

== ENCOUNTER 2019-11-14 14:54 | Emergency (ER) | payer SELFPAY ==
[~2019-11-14] VITALS: Ht 165.1 cm; Wt 54.5 kg
[~2019-11-14 14:54] MED LIST: BENZ100C PO; HYDR-3164 PO; NAPR-683 PO; OSEL75CA PO
[2019-11-14 15:13] VITALS: BP 143/77
[2019-11-14] MEDS ORDERED: diazePAM 5 MG TABLET PO ONE (15:15)
[2019-11-14 15:27] LABS: BILIRUBIN,URINE NEGATIVE (NEG); CLARITY,URINE CLEAR; COLOR,URINE YELLOW; NITRITE,URINE NEGATIVE (NEG); PROTEIN,URINE NEGATIVE (NEG-TRACE)
[2019-11-14 15:32] LABS: HYALINE CASTS, URINE MODERATE /HPF; SQUAMOUS EPITHELIAL CELL,UR MOD /LPF
[2019-11-14 15:33] LABS: BACTERIA,URINE MANY /HPF (0-FEW); WBC,URINE 20-40 /HPF (0-4)
[2019-11-14 15:35] LABS: BARBITURATES NEG (NEG); BENZODIAZEPINES NEG (NEG); CANNABINOIDS POS (NEG); COCAINE NEG (NEG); METHADONE POS (NEG); OPIATES POS (NEG); PHENCYCLIDINE NEG (NEG)
--- NOTE | 2019-11-14 15:36 | PHYS DOC ---
Past Medical History Past Medical History: Anxiety Additional Past Medical Histor: Methamphetamine abuse Past Surgical History: Other Additional Past Surgical Histo: dental, lung sugery Smoking Status: Current Every Day Smoker Alcohol Use: None Drug Use: None General Adult EDM: Chief Complaint: ANXIETY/PANIC ATTACK HPI: HPI: Patient is a 33-year-old female who presents with anxiety. She states she did methamphetamines yesterday but uses methamphetamines regularly. She denies any suicidal or homicidal ideation. She denies any other illicit drugs. She states that she is not any fever chills or sweats. She does state that her body hurts all over. She states there is no part of her body that is worse than the other. [] Review of Systems: Review of Systems: Constitutional: Denies fever or chills. [] Eyes: Denies change in visual acuity. [] HENT: Denies nasal congestion or sore throat. [] Respiratory: Denies cough or shortness of breath. [] Cardiovascular: Denies chest pain or edema. [] GI: Reports pain. [] : Denies dysuria. [] Musculoskeletal: Denies back pain or joint pain. [] Integument: Reports many scabs. [] Neurologic: Denies headache, focal weakness or sensory changes. [] Endocrine: Denies polyuria or polydipsia. [] Lymphatic: Denies swollen glands. [] Psychiatric: Reports anxiety. [] Heart Score: Risk Factors: Risk Factors: DM, Current or recent (<one month) smoker, HTN, HLP, family history of CAD, obesity. Risk Scores: Score 0 - 3: 2.5% MACE over next 6 weeks - Discharge Home Score 4 - 6: 20.3% MACE over next 6 weeks - Admit for Clinical Observation Score 7 - 10: 72.7% MACE over next 6 weeks - Early Invasive Strategies Current Medications: Current Medications Medications (Trade) Dose Ordered Sig/Tex Start Time Stop Time Status Last Admin Dose Admin Diazepam (Valium) 10 mg 1X ONCE 11/14/19 15:15 11/14/19 15:16 DC 11/14/19 15:24 10 MG Allergies: Allergies: Allergies Coded Allergies Type Severity Reaction Last Updated Verified paroxetine Allergy Intermediate Swelling 01/15/19 Yes I S O L A T I O N *CONTACT* Allergy Unknown 01/15/19 Yes Physical Exam: PE: Constitutional: Female that is extremely anxious appears older than stated age. [] HENT: Normocephalic, atraumatic, bilateral external ears normal, oropharynx moist, no oral exudates, nose normal. [] Eyes: PERRLA, EOMI, conjunctiva normal, no discharge. [] Neck: Normal range of motion, no tenderness, supple, no stridor. [] Cardiovascular: Tachycardic [] Lungs & Thorax: Bilateral breath sounds clear to auscultation [] Abdomen: Bowel sounds normal, soft, no tenderness, no masses, no pulsatile masses. [] Skin: Diffuse neurotic excoriation. [] Back: No tenderness, no CVA tenderness. [] Extremities: No tenderness, no cyanosis, no clubbing, ROM intact, no edema. [] Neurologic: Upper extremity tremors with writhing [] Psychologic: Extremely anxious with anxiety consistent with that of methamp hetamine intoxication [] Current Patient Data: Labs: Laboratory Tests Test 11/14/19 15:13 11/14/19 15:15 POC Urine HCG, Qualitative Hcg negative (Negative) Urine Collection Type Unknown Urine Color Yellow Urine Clarity Clear Urine pH 6.0 (<5.0-8.0) Urine Specific [place] 1.010 (1.000-1.030) Urine Protein Negative mg/dL (NEG-TRACE) Urine Glucose (UA) Negative mg/dL (NEG) Urine Ketones (Stick) Negative mg/dL (NEG) Urine Blood Moderate (NEG) Urine Nitrite Negative (NEG) Urine Bilirubin Negative (NEG) Urine Urobilinogen Dipstick 1.0 mg/dL (0.2 mg/dL) Urine Leukocyte Esterase Small (NEG) Urine RBC 6-10 /HPF (0-2) Urine WBC 20-40 /HPF (0-4) Urine Squamous Epithelial Cells Mod /LPF Urine Bacteria Many /HPF (0-FEW) Urine Hyaline Casts Moderate /HPF Urine Mucus Slight /LPF Vital Signs: Vital Signs Date Time Temp Pulse Resp B/P (MAP) Pulse Ox O2 Delivery O2 Flow Rate FiO2 11/14/19 15:13 99.1 72 22 143/77 (99) 93 Room Air 99.1 EKG: EKG: [] Radiology/Procedures: Radiology/Procedures: [] Course & Med Decision Making: Course & Med Decision Making Pertinent Labs and Imaging studies reviewed. (See chart for details) [ED course: Evaluation reveals a 33-year-old female who is anxious secondary to methamphetamine use. She was given Valium during her stay in the department and then left prior to discharge instructions. I was going to have the psychiatric assessment team evaluate her.] Jesus Disclaimer: Jesus Disclaimer: This electronic medical record was generated, in whole or in part, using a voice recognition dictation system. Departure Departure Impression: Primary Impression: Methamphetamine intoxication Disposition: 01 HOME, SELF-CARE Condition: STABLE Referrals: NO PCP (PCP) Patient Instructions: Methamphetamine Abuse, Complications, Methamphetamine Mouth Justicifation of Admission Dx: Justifications for Admission: Justification of Admission Dx: No FREDERICK SCHOFIELD DO Nov 14, 2019 15:36
[2019-11-14 15:37] LABS: AMPHETAMINE/METHAMPHETAMINE POS (NEG)
== END 2019-11-14 15:30 | disposition left against medical advice (07) ==
LOC: ER 14:54
DX: F15.229 Other stimulant dependence with intoxication, unspecified (principal); F41.9 Anxiety disorder, unspecified; F17.200 Nicotine dependence, unspecified, uncomplicated; Z98.890 Other specified postprocedural states
CPT/HCPCS: 80307; 81001; 81025; 87086; 99283

== ENCOUNTER 2020-01-17 11:14 | Inpatient (IN) | payer MEDICAID ==
[~2020-01-17] VITALS: Ht 165.1 cm; Wt 50.0 kg
--- NOTE | 2020-01-17 13:37 | PHYS DOC ---
Past Medical History Past Medical History: Anxiety Additional Past Medical Histor: Methamphetamine abuse (pt denies 01/16), endocarditis (JENNIFER ARMENDARIZ APRN) Past Surgical History: Other Additional Past Surgical Histo: dental, lung sugery; (JENNIFER ARMENDARIZ APRN) Smoking Status: Current Some Day Smoker Alcohol Use: None Drug Use: None (JENNIFER ARMENDARIZ APRN) General Adult EDM: Chief Complaint: SHORTNESS OF BREATH HPI: HPI: Patient is a 34 year old female who presents to the emergency department with complaints of body aches, fatigue, chills,and not feeling well for the last 5 days. She denies any chest pain, palpitations, cough, nausea, vomiting, diarrhea, abdominal pain, dysuria, hematuria, or increased urinary frequency. Patient denies any headache, or rash. She denies any illicit drug use. She currently rates her pain a 10 out of 10 on the pain scale, she denies any alleviating or exacerbating factors. She states her entire body hurts. She denies any known exposure to COVID-19. (JENNIFER ARMENDARIZ APRN) Review of Systems: Review of Systems: Constitutional: Denies fever; see HPI Eyes: Denies change in visual acuity. [] HENT: Denies nasal congestion or sore throat. [] Respiratory: Denies cough or shortness of breath. [] Cardiovascular: Denies chest pain, palpitations, or edema. [] GI: Denies abdominal pain, nausea, vomiting, or diarrhea. [] : Denies dysuria. [] Musculoskeletal: Reports body aches Integument: Denies rash. [] Neurologic: Denies headache, focal weakness or sensory changes. [] Lymphatic: Denies swollen glands. [] Psychiatric: Denies depression or anxiety. [] (JENNIFER AMRENDARIZ ANGLE SHEARER) Heart Score: Risk Factors: Risk Factors: DM, Current or recent (<one month) smoker, HTN, HLP, family history of CAD, obesity. Risk Scores: Score 0 - 3: 2.5% MACE over next 6 weeks - Discharge Home Score 4 - 6: 20.3% MACE over next 6 weeks - Admit for Clinical Observation Score 7 - 10: 72.7% MACE over next 6 weeks - Early Invasive Strategies (JENNIFER ARMENDARIZ APRN) Allergies: Allergies: Allergies Coded Allergies Type Severity Reaction Last Updated Verified paroxetine Allergy Intermediate Swelling 01/15/19 Yes I S O L A T I O N *CONTACT* Allergy Unknown 01/15/19 Yes (JENNIFER ARMENDARIZ APRN) Physical Exam: PE: Constitutional: Well developed, well nourished, no acute distress, ill appearance. [] HENT: Normocephalic, atraumatic, bilateral external ears normal, dry mucous membranes, dry lips, nose normal. [] Eyes: PERRLA, EOMI, conjunctiva normal, no discharge. [] Neck: Normal range of motion, no stridor. [] Cardiovascular:Heart rate regular tachycardic rhythm, no murmur [] Lungs & Thorax: Bilateral breath sounds clear to auscultation, respirations even and unlabored, no retractions, no respiratory distress [] Abdomen: soft, no tenderness, no masses, no pulsatile masses. [] Skin: Warm, dry, no erythema, no rash; multiple scabbed lesions to face and upper extremities bilaterally [] Back: Bilat CVA tenderness. [] Extremities: No cyanosis, no clubbing, ROM intact, no edema. [] Neurologic: Alert and oriented X 3, normal motor function, normal sensory function, no focal deficits noted. [] Psychologic: Affect normal, judgement normal, mood normal. [] (JENNIFER ARMENDARIZ APRN) Current Patient Data: Vital Signs: Vital Signs Date Time Temp Pulse Resp B/P (MAP) Pulse Ox O2 Delivery O2 Flow Rate FiO2 01/17/20 12:44 98.4 102 16 126/85 (99) 99 Room Air 98.4 (JENNIFER ARMENDARIZ APRN) EKG: EK-sinus tachycardia, rate 107, no STEMI, read by Dr. Thompson[] (JENNIFER ARMENDARIZ APRN) Radiology/Procedures: Radiology/Procedures: PROCEDURE: CHEST AP ONLY CHEST AP ONLY Clinical indications: Nausea and vomiting and diarrhea. Patient underwent investigation. Comparison: January 02, 2019. Findings: There is new finding of a nodular lung infiltrate or mass within the lateral right lower lung zone. There is a new finding of right hilar mass or enlarged lymph node. Left lung field is clear. No pleural effusion or pneumothorax is seen. Surgical clips of the left hilum are seen. Heart size and mediastinum are unremarkable. Surgical absence of the posterior left seventh rib is seen. IMPRESSION: New finding of nodular lung infiltrate or mass of the right lower lung zone with associated right hilar mass or lymphadenopathy. PROCEDURE: CT ANGIOGRAPHY CHEST CTA OF THE CHEST WITH AND WITHOUT CONTRAST Clinical indications: Shortness of air. Fevers. Technique: Noncontrast axial localizer was performed. After IV infusion of 60 cc of Omnipaque 350, helical CT scanning of the chest was performed using the CT pulmonary embolism protocol. A coronal MIP reconstruction was generated. PQRS compliance Statement One or more of the following individualized dose reduction techniques were utilized for this study: 1. Automated exposure control 2. Adjustment of the mA and/or kV according to patient size 3. Use of iterative reconstruction technique Comparison: August 04, 2016. FINDINGS: Mediastinal lymphadenopathy is evident. Largest lymph node is seen within the anterior mediastinum measuring 20 mm transversely. Bilateral hilar lymphadenopathy is seen. Largest lymph node on the right side measures 16 mm. Largest lymph node on the left side measures 18 mm. No focal aneurysmal dilatation or dissection of the thoracic aorta is seen. Heart size is normal and no pericardial effusion is seen. No central pulmonary emboli are evident. The finding of right hilar enlargement on the chest x-ray corresponds to a dilated central pulmonary artery. There is a bilobed nodular lung infiltrate within the anterior lateral aspect of the right lower lobe. This measures 37 mm in AP dimension and 30 mm in vertical dimension and 20 mm in transverse dimension. There are some areas which demonstrate fluid like density of 19 Hounsfield units and other areas demonstrate more solid density of 35 Hounsfield units. Therefore, it is possible that this represents a focus of pneumonia rather than a neoplasm. However, short-term chest CT follow-up in 4 weeks is recommended after completion of antibiotic therapy. There is adjacent inflammatory change of the right lower lobe. Linear and nodular lung infiltrates are seen within the posterior segment of the right upper lobe. Similar nodular and linear infiltrates are seen within the superior segment of the left lower lobe. There is an area of cavitation within this infiltrate. More linear-like infiltrate is seen within the more inferior basal segments of the left lower lobe. There is peribronchial and perivascular soft tissue thickening within the left hilum and right hilum and within the right lower lobe. No lytic process is seen. No adrenal mass is seen. However the adrenal glands are not completely seen in this study. IMPRESSION: Bilateral lung infiltrates as discussed above. These may be inflammatory or infectious in nature but a follow-up chest CT in 4 weeks is recommended. Neoplastic disease is in the differential diagnosis. In addition, atypical infection should be considered. There is peribronchovascular soft tissue thickening bilaterally as well. This may be seen with atypical infection or could be seen with sarcoidosis. Bilateral hilar lymphadenopathy is evident and mediastinal lymphadenopathy is evident. There is a prominent central right pulmonary artery. This measures 2 cm in caliber. This could be secondary to pulmonary arterial hypertension or could possibly be related to vasculitis given the soft tissue thickening resulting in aneurysmal dilatation. This is a new finding. Electronically signed by: Breezy Rausch MD (01/17/2020 4:50 PM) [id number] [] (JENNIFER ARMENDARIZ APRN) Course & Med Decision Making: Course & Med Decision Making Pertinent Labs and Imaging studies reviewed. (See chart for details) 175-spoke with Dr. Burns who is the admitting physician, and care was assumed following discussion of patient. Will admit for PUI, Bilat pneumonia, UTI Patient's vital signs stable. Patient remains afebrile, appears ill, respirations even and unlabored. Patient will be admitted to the med/tele floor. Patient's case and plan of care also discussed with Dr. Thompson COVID-19 CRITERIA: The patient was evaluated during the global COVID-19 pandemic, and that diagnosis was suspected/considered upon their initial presentation. Their evaluation, treatment and testing was consistent with current guidelines for patients who present with complaints or symptoms that may be related to COVID-19. [] (JENNIFER ARMENDARIZ APRN) Course & Med Decision Making I have reviewed the PA/MEDICAL COLLECTIONS SPECIALIST's note and Plan of Care. I was available for consultation as needed during the patient's visit in the emergency department. I agree with the clinical impression, plans and disposition. (ROBBY THOMPSON MD) Dragon Disclaimer: Dragon Disclaimer: This electronic medical record was generated, in whole or in part, using a voice recognition dictation system. (JENNIFER ARMENDARIZ APRN) Departure Departure Impression: Primary Impression: Person under investigation for COVID-19 Additional Impressions: Bilateral pneumonia Qualified Codes: J18.9 - Pneumonia, unspecified organism UTI (urinary tract infection) Qualified Codes: N39.0 - Urinary tract infection, site not specified; R31.9 - Hematuria, unspecified Disposition: 09 ADMITTED INPATIENT Admitting Physician: DARYN Borden) (JENNIFER ARMENDARIZ APRN) Condition: STABLE Referrals: NO PCP (PCP) Justicifation of Admission Dx: Justifications for Admission: Justification of Admission Dx: Yes (JENNIFER ARMENDARIZ APRN) COVID-19 Assessment: COVID-19 Patient Risks: Age 65 or older: No Sign of co-morbidity: Yes Exp to person + for COVID: No Exp to PUI: No Travel from affected area: No Lower respiratory symptoms: No Fever: No Other: No (JENNIFER ARMENDARIZ APRN) PPE Use: Full PPE with N95 mask or PAPR: Yes (JENNIFER ARMENDARIZ APRN) JENNIFER ARMENDARIZ APRN Jan 17, 2020 13:37 ROBBY THOMPSON MD Jan 17, 2020 20:26
[2020-01-17 14:02] LABS: BILIRUBIN,URINE NEGATIVE (NEG); CLARITY,URINE CLEAR; COLOR,URINE YELLOW; NITRITE,URINE NEGATIVE (NEG); PH,URINE 6.5 (<5.0-8.0); PROTEIN,URINE 30 mg/dL (NEG-TRACE)
[2020-01-17 14:07] LABS: U PREG PATIENT NEGATIVE (NEG)
[2020-01-17 14:08] LABS: BARBITURATES NEG (NEG); BENZODIAZEPINES NEG (NEG); CANNABINOIDS POS (NEG); COCAINE NEG (NEG); METHADONE NEG (NEG); OPIATES POS (NEG); PHENCYCLIDINE NEG (NEG)
[2020-01-17 14:09] LABS: AMPHETAMINE/METHAMPHETAMINE NEG (NEG)
[2020-01-17 14:13] LABS: BACTERIA,URINE MANY /HPF (0-FEW); RBC,URINE TNTC /HPF (0-2); SQUAMOUS EPITHELIAL CELL,UR FEW /LPF; WBC,URINE >40 /HPF (0-4)
[2020-01-17] MEDS ORDERED: fentaNYL PF VIAL 100 MCG/2 ML VIAL IV ONE (14:15)
[2020-01-17] MEDS ORDERED: ONDANSETRON PF 4 MG/2 ML VIAL. IV ONE (14:15)
[2020-01-17] MEDS ORDERED: IV NORMAL SALINE 1000ML BAG 1,000 ML IV ONE (14:15)
[2020-01-17 14:24] LABS: BASO # 0.1 x10^3/uL (0.0-0.2); BASO % 1 % (0-3); EOS % 0 % (0-3); HEMATOCRIT 32.9 % (36.0-47.0); HEMOGLOBIN 11.3 g/dL (12.0-15.5); LYMPH % 9 % (24-48); MEAN CORPUSCULAR HEMOGLOBIN 32 pg (25-35); MEAN CORPUSCULAR HGB CONC 34 g/dL (31-37); MEAN CORPUSCULAR VOLUME 93 fL (79-100); MONO % 9 % (0-9); NEUT # 8.7 x10^3/uL (1.8-7.7); NEUT % 80 % (31-73); PLATELET COUNT 160 x10^3/uL (140-400); RED BLOOD COUNT 3.55 x10^6/uL (3.50-5.40); RED CELL DISTRIBUTION WIDTH 15.5 % (11.5-14.5); WHITE BLOOD COUNT 10.8 x10^3/uL (4.0-11.0)
[2020-01-17 14:29] LABS: CALCIUM 8.2 mg/dL (8.5-10.1); CREATININE 1.3 mg/dL (0.6-1.0); GFR 47.5; POTASSIUM 3.7 mmol/L (3.5-5.1)
[2020-01-17] MEDS ORDERED: cefTRIAXone IV Push 1 GM VIAL. IVP ONE (14:30)
[2020-01-17 14:36] LABS: ALBUMIN 2.4 g/dL (3.4-5.0); ALBUMIN/GLOBULIN RATIO 0.4 (1.0-1.7); TOTAL BILIRUBIN 0.6 mg/dL (0.2-1.0); TOTAL PROTEIN 8.3 g/dL (6.4-8.2)
--- NOTE | 2020-01-17 14:49 | RAD ---
CHEST AP ONLY Clinical indications: Nausea and vomiting and diarrhea. Patient underwent investigation. Comparison: January 02, 2019. Findings: There is new finding of a nodular lung infiltrate or mass within the lateral right lower lung zone. There is a new finding of right hilar mass or enlarged lymph node. Left lung field is clear. No pleural effusion or pneumothorax is seen. Surgical clips of the left hilum are seen. Heart size and mediastinum are unremarkable. Surgical absence of the posterior left seventh rib is seen. IMPRESSION: New finding of nodular lung infiltrate or mass of the right lower lung zone with associated right hilar mass or lymphadenopathy. Electronically signed by: Breezy Rausch MD (01/17/2020 2:47 PM) [id number]
[2020-01-17 15:05] LABS: PLT ESTIMATE ADEQUATE (ADEQUATE)
[2020-01-17 15:06] LABS: HYPOCHROMIA SLIGHT; PLATELET CLUMP PRESENT
[2020-01-17 15:07] LABS: BURR CELLS OCC
[2020-01-17] MEDS ORDERED: IOHEXOL 350 MG/ML 100 ML VIAL. IV ONE (15:30)
[2020-01-17] MEDS ORDERED: CONTRAST GIVEN. MC PRN (15:45)
[2020-01-17] MEDS ORDERED: fentaNYL PF VIAL 100 MCG/2 ML VIAL IVP ONE (16:00)
--- NOTE | 2020-01-17 16:53 | RAD ---
CTA OF THE CHEST WITH AND WITHOUT CONTRAST Clinical indications: Shortness of air. Fevers. Technique: Noncontrast axial localizer was performed. After IV infusion of 60 cc of Omnipaque 350, helical CT scanning of the chest was performed using the CT pulmonary embolism protocol. A coronal MIP reconstruction was generated. PQRS compliance Statement One or more of the following individualized dose reduction techniques were utilized for this study: 1. Automated exposure control 2. Adjustment of the mA and/or kV according to patient size 3. Use of iterative reconstruction technique Comparison: August 04, 2016. FINDINGS: Mediastinal lymphadenopathy is evident. Largest lymph node is seen within the anterior mediastinum measuring 20 mm transversely. Bilateral hilar lymphadenopathy is seen. Largest lymph node on the right side measures 16 mm. Largest lymph node on the left side measures 18 mm. No focal aneurysmal dilatation or dissection of the thoracic aorta is seen. Heart size is normal and no pericardial effusion is seen. No central pulmonary emboli are evident. The finding of right hilar enlargement on the chest x-ray corresponds to a dilated central pulmonary artery. There is a bilobed nodular lung infiltrate within the anterior lateral aspect of the right lower lobe. This measures 37 mm in AP dimension and 30 mm in vertical dimension and 20 mm in transverse dimension. There are some areas which demonstrate fluid like density of 19 Hounsfield units and other areas demonstrate more solid density of 35 Hounsfield units. Therefore, it is possible that this represents a focus of pneumonia rather than a neoplasm. However, short-term chest CT follow-up in 4 weeks is recommended after completion of antibiotic therapy. There is adjacent inflammatory change of the right lower lobe. Linear and nodular lung infiltrates are seen within the posterior segment of the right upper lobe. Similar nodular and linear infiltrates are seen within the superior segment of the left lower lobe. There is an area of cavitation within this infiltrate. More linear-like infiltrate is seen within the more inferior basal segments of the left lower lobe. There is peribronchial and perivascular soft tissue thickening within the left hilum and right hilum and within the right lower lobe. No lytic process is seen. No adrenal mass is seen. However the adrenal glands are not completely seen in this study. IMPRESSION: Bilateral lung infiltrates as discussed above. These may be inflammatory or infectious in nature but a follow-up chest CT in 4 weeks is recommended. Neoplastic disease is in the differential diagnosis. In addition, atypical infection should be considered. There is peribronchovascular soft tissue thickening bilaterally as well. This may be seen with atypical infection or could be seen with sarcoidosis. Bilateral hilar lymphadenopathy is evident and mediastinal lymphadenopathy is evident. There is a prominent central right pulmonary artery. This measures 2 cm in caliber. This could be secondary to pulmonary arterial hypertension or could possibly be related to vasculitis given the soft tissue thickening resulting in aneurysmal dilatation. This is a new finding. Electronically signed by: Breezy Rausch MD (01/17/2020 4:50 PM) [id number]
[2020-01-17] MEDS ORDERED: MORPHINE SULFATE 4 MG/ML VIAL. IV ONE (17:15)
[2020-01-17] MEDS ORDERED: PIPERACILLIN/TAZOBACTAM 3.375 GM in IV NORMAL SALINE 50ML 50 ML IV ONE (17:15)
[2020-01-17] MEDS ORDERED: diphenhydrAMINE 50 MG/ML VIAL IVP PRN (18:30)
[2020-01-17] MEDS ORDERED: ONDANSETRON PF 4 MG/2 ML VIAL. IV PRN (18:30)
[2020-01-17] MEDS ORDERED: ZOLPIDEM 5 MG TABLET. PO PRN (18:30)
[2020-01-17] MEDS ORDERED: MAG HYDROX/ALUMINUM HYD/SIMETH 30 ML ORAL.SUSP PO PRN (18:30)
[2020-01-17] MEDS ORDERED: ALBUTEROL SULFATE 2.5 MG/3 ML NEBU. NEB PRN (18:30)
[2020-01-17] MEDS ORDERED: DOCUSATE SODIUM 100 MG CAPSULE. PO PRN (18:30)
[2020-01-17] MEDS ORDERED: ACETAMINOPHEN 650 MG SUPP.RECT. PR PRN (18:30)
[2020-01-17] MEDS ORDERED: ACETAMINOPHEN 325 MG TABLET. PO PRN (18:30)
[2020-01-17] MEDS ORDERED: guaiFENesin ORAL 200 MG/10 ML LIQUID. PO PRN (18:30)
[2020-01-17] MEDS: ENOXAPARIN 40 MG/0.4 ML SYRINGE. SQ SCH ×2 (19:00→20:12)
[2020-01-17] MEDS ORDERED: AZITHRMYCN 500MG IVPB FOR OMNI 250 ML IV ONE (19:15)
[2020-01-17 20:00] VITALS: BP 153/72
[2020-01-17] MEDS: IV NORMAL SALINE 1000ML BAG 1,000 ML IV SCH (20:12)
[2020-01-17] MEDS: LORazepam 0.5 MG TABLET PO PRN (20:13)
[2020-01-17] MEDS: KETOROLAC 15 MG/ML VIAL. IVP PRN (20:26)
[2020-01-17] MEDS: AZITHROMYCIN 500 MG in IV NORMAL SALINE 250ML 250 ML IV SCH (22:19)
--- NOTE | 2020-01-17 22:28 | PDOC1 ---
History and Physical Date of Admission Date of Admission 01/17/2020 Identification/Chief Complaint Chief Complaint Shortness of breath Source Source: Chart review, Patient History of Present Illness History of Present Illness 35-year-old female who certainly looks older than the stated age comes today with a history of more or less 5 days prior to her admission of generalized body aches most of generalized malaise fatigue chills, the patient denies any fever she has not quantified her temperature, denies any exposure to COVID-19 infected persons she denies any headache no loss of taste or smell reported either. Of note is that the patient has a history of methamphetamine abuse and endocarditis but currently denies illicit drug abuse. Urine drug panel was positive for marijuana. Given her respiratory distress and the need of supplemental oxygen we were called to admit the patient. The patient also presents several concerning factors very likely has COVID-19 infection. She is complaining of chest discomfort due to pleurisy secondary to the bilateral pneumonia that has been reported on CT scanning of her chest. The patient looks acutely ill but hemodynamically stable. I have addressed all her concerns to the best of my abilities. She is mostly complaining of chest discomfort worse with inspiration as expected with pneumonic process. She has mild respiratory distress and accessory muscle use. I have discussed the results of her laboratory findings and imaging studies and the plan of care in detail all of her concerns were addressed to the best of my abilities Past Medical History Hepatobiliary: Hep A/B/C Psych: Anxiety, Other (Polysubstance abuse) Infectious disease: Other Past Surgical History Past Surgical History: No pertinent history Family History Family History: No Significant Social History Smoke: No ALCOHOL: none Drugs: None Current Problem List Problem List Problems Medical Problems: (1) Bilateral pneumonia Status: Acute (2) Person under investigation for COVID-19 Status: Acute (3) UTI (urinary tract infection) Status: Acute Current Medications Current Medications Current Medications Medications (Trade) Dose Ordered Sig/Tex Start Time Stop Time Status Last Admin Dose Admin Acetaminophen (Tylenol Supp) 650 mg PRN Q4HRS PRN 01/17/20 18:30 Acetaminophen (Tylenol) 650 mg PRN Q4HRS PRN 01/17/20 18:30 01/17/20 19:31 650 MG Al Hydroxide/Mg Hydroxide (Mylanta Plus Xs) 30 ml PRN DAILY PRN 01/17/20 18:30 Albuterol Sulfate (Ventolin Neb Soln) 2.5 mg PRN Q4HRS PRN 01/17/20 18:30 Azithromycin 250 ml @ 250 mls/hr 1X ONCE 01/17/20 19:15 01/17/20 20:14 DC Azithromycin 500 mg/Sodium Chloride 250 ml @ 250 mls/hr Q24H 01/17/20 22:00 01/20/20 21:59 01/17/20 22:19 250 MLS/HR Ceftriaxone Sodium (Rocephin) 1 gm 1X ONCE 01/17/20 14:30 01/17/20 14:31 DC 01/17/20 14:44 1 GM Diphenhydramine HCl (Benadryl) 25 mg PRN Q4HRS PRN 01/17/20 18:30 Docusate Sodium (Colace) 100 mg PRN BID PRN 01/17/20 18:30 Enoxaparin Sodium (Lovenox 40mg Syringe) 40 mg Q24H 01/17/20 19:00 Fentanyl Citrate (Fentanyl 2ml Vial) 50 mcg 1X ONCE 01/17/20 16:00 01/17/20 16:01 DC 01/17/20 15:49 50 MCG Guaifenesin (Robitussin) 200 mg PRN Q4HRS PRN 01/17/20 18:30 Info (CONTRAST GIVEN -- Rx MONITORING) 1 each PRN DAILY PRN 01/17/20 15:45 01/19/20 15:44 Iohexol (Omnipaque 350 Mg/ml) 60 ml 1X ONCE 01/17/20 15:30 01/17/20 15:32 DC 01/17/20 15:30 60 ML Ketorolac Tromethamine (Toradol 15mg Vial) 15 mg PRN Q6HRS PRN 01/17/20 20:15 01/22/20 20:14 01/17/20 20:26 15 MG Levofloxacin/ Dextrose 150 ml @ 100 mls/hr 1X ONCE 01/17/20 17:15 01/17/20 18:44 DC 01/17/20 17:22 100 MLS/HR Lorazepam (Ativan) 0.5 mg PRN Q4HRS PRN 01/17/20 18:30 01/17/20 20:13 0.5 MG Morphine Sulfate (Morphine Sulfate) 4 mg 1X ONCE 01/17/20 17:15 01/17/20 17:17 DC 01/17/20 17:22 4 MG Ondansetron HCl (Zofran) 4 mg PRN Q4HRS PRN 01/17/20 18:30 Piperacillin Sod/ Tazobactam Sod 3.375 gm/Sodium Chloride 50 ml @ 100 mls/hr Q6HRS 01/18/20 00:00 Sodium Chloride 1,000 ml @ 100 mls/hr Q10H 01/17/20 18:25 01/17/20 20:12 100 MLS/HR Zolpidem Tartrate (Ambien) 5 mg PRN QHS PRN 01/17/20 18:30 Allergies Allergies Allergies Coded Allergies Type Severity Reaction Last Updated Verified paroxetine Allergy Intermediate Swelling 01/15/19 Yes I S O L A T I O N *CONTACT* Allergy Unknown 01/15/19 Yes ROS Review of System CONSTITUTIONAL: No fever or chills EYES: No recent changes SKIN: No rash or itching CARDIOVASCULAR: No chest pain, syncope, palpitations, or edema RESPIRATORY: No SOB or cough GASTROINTESTINAL: No nausea, vomiting or abdominal pain NEUROLOGICAL: No headaches or weakness ENDOCRINE: No cold or heat intolerance GENITOURINARY: No urgency or frequency of urination MUSCULOSKELETAL: No back pain or joint pain LYMPHATICS: No enlarged lymph nodes PSYCHIATRIC: No anxiety or depression Physical Exam Physical Exam GEN.: No apparent distress. Older than the stated age disheveled and chron ically ill-appearing alert and oriented. HEENT: Head is normocephalic, atraumatic NECK: Supple. LUNGS: Coarse breath sounds. HEART: RRR, S1, S2 present. Peripheral pulses intact ABDOMEN: Soft, nontender. Positive bowel sounds. EXTREMITIES: Without any cyanosis. NEUROLOGIC: Cranial nerves II to XII intact no motor or sensory deficit appreciated normal speech, normal tone PSYCHIATRIC: Normal affect, normal mood. SKIN: No ulcerations Vitals Vitals Vital Signs Date Time Temp Pulse Resp B/P (MAP) Pulse Ox O2 Delivery O2 Flow Rate FiO2 01/17/20 18:51 100.3 114 20 115/61 (79) 99 Room Air 100.3 Labs Labs Laboratory Tests Test 01/17/20 13:33 01/17/20 13:39 White Blood Count 10.8 x10^3/uL (4.0-11.0) Red Blood Count 3.55 x10^6/uL (3.50-5.40) Hemoglobin 11.3 g/dL (12.0-15.5) Hematocrit 32.9 % (36.0-47.0) Mean Corpuscular Volume 93 fL (79-100) Mean Corpuscular Hemoglobin 32 pg (25-35) Mean Corpuscular Hemoglobin Concent 34 g/dL (31-37) Red Cell Distribution Width 15.5 % (11.5-14.5) Platelet Count 160 x10^3/uL (140-400) Neutrophils (%) (Auto) 80 % (31-73) Lymphocytes (%) (Auto) 9 % (24-48) Monocytes (%) (Auto) 9 % (0-9) Eosinophils (%) (Auto) 0 % (0-3) Basophils (%) (Auto) 1 % (0-3) Neutrophils # (Auto) 8.7 x10^3/uL (1.8-7.7) Lymphocytes # (Auto) 1.0 x10^3/uL (1.0-4.8) Monocytes # (Auto) 1.0 x10^3/uL (0.0-1.1) Eosinophils # (Auto) 0.0 x10^3/uL (0.0-0.7) Basophils # (Auto) 0.1 x10^3/uL (0.0-0.2) Platelet Estimate Adequate (ADEQUATE) Platelet Clumps, EDTA Present Hypochromasia Slight [place] Cells Occ D-Dimer (Windy) 3.11 ug/mlFEU (0.00-0.50) Sodium Level 134 mmol/L (136-145) Potassium Level 3.7 mmol/L (3.5-5.1) Chloride Level 100 mmol/L (98-107) Carbon Dioxide Level 24 mmol/L (21-32) Anion Gap 10 (6-14) Blood Urea Nitrogen 11 mg/dL (7-20) Creatinine 1.3 mg/dL (0.6-1.0) Estimated GFR (Cockcroft-Gault) 47.5 BUN/Creatinine Ratio 8 (6-20) Glucose Level 106 mg/dL (70-99) Calcium Level 8.2 mg/dL (8.5-10.1) Magnesium Level 2.0 mg/dL (1.8-2.4) Total Bilirubin 0.6 mg/dL (0.2-1.0) Aspartate Amino Transf (AST/SGOT) 36 U/L (15-37) Alanine Aminotransferase (ALT/SGPT) 46 U/L (14-59) Alkaline Phosphatase 169 U/L (46-116) Creatine Kinase 26 U/L (26-192) Total Protein 8.3 g/dL (6.4-8.2) Albumin 2.4 g/dL (3.4-5.0) Albumin/Globulin Ratio 0.4 (1.0-1.7) Urine Collection Type Unknown Urine Color Yellow Urine Clarity Clear Urine pH 6.5 (<5.0-8.0) Urine Specific [place] <=1.005 (1.000-1.030) Urine Protein 30 mg/dL (NEG-TRACE) Urine Glucose (UA) Negative mg/dL (NEG) Urine Ketones (Stick) Negative mg/dL (NEG) Urine Blood Large (NEG) Urine Nitrite Negative (NEG) Urine Bilirubin Negative (NEG) Urine Urobilinogen Dipstick 1.0 mg/dL (0.2 mg/dL) Urine Leukocyte Esterase Moderate (NEG) Urine RBC Tntc /HPF (0-2) Urine WBC >40 /HPF (0-4) Urine Squamous Epithelial Cells Few /LPF Urine Bacteria Many /HPF (0-FEW) Urine Test Negative (NEG) Urine Opiates Screen Pos (NEG) Urine Methadone Screen Neg (NEG) Urine Barbiturates Neg (NEG) Urine Phencyclidine Screen Neg (NEG) Urine Amphetamine/Methamphetamine Neg (NEG) Urine Benzodiazepines Screen Neg (NEG) Urine Cocaine Screen Neg (NEG) Urine Cannabinoids Screen Pos (NEG) Urine Ethyl Alcohol Neg (NEG) Laboratory Tests Test 01/17/20 13:33 01/17/20 13:39 White Blood Count 10.8 x10^3/uL (4.0-11.0) Red Blood Count 3.55 x10^6/uL (3.50-5.40) Hemoglobin 11.3 g/dL (12.0-15.5) Hematocrit 32.9 % (36.0-47.0) Mean Corpuscular Volume 93 fL (79-100) Mean Corpuscular Hemoglobin 32 pg (25-35) Mean Corpuscular Hemoglobin Concent 34 g/dL (31-37) Red Cell Distribution Width 15.5 % (11.5-14.5) Platelet Count 160 x10^3/uL (140-400) Neutrophils (%) (Auto) 80 % (31-73) Lymphocytes (%) (Auto) 9 % (24-48) Monocytes (%) (Auto) 9 % (0-9) Eosinophils (%) (Auto) 0 % (0-3) Basophils (%) (Auto) 1 % (0-3) Neutrophils # (Auto) 8.7 x10^3/uL (1.8-7.7) Lymphocytes # (Auto) 1.0 x10^3/uL (1.0-4.8) Monocytes # (Auto) 1.0 x10^3/uL (0.0-1.1) Eosinophils # (Auto) 0.0 x10^3/uL (0.0-0.7) Basophils # (Auto) 0.1 x10^3/uL (0.0-0.2) Platelet Estimate Adequate (ADEQUATE) Platelet Clumps, EDTA Present Hypochromasia Slight [place] Cells Occ D-Dimer (Windy) 3.11 ug/mlFEU (0.00-0.50) Sodium Level 134 mmol/L (136-145) Potassium Level 3.7 mmol/L (3.5-5.1) Chloride Level 100 mmol/L (98-107) Carbon Dioxide Level 24 mmol/L (21-32) Anion Gap 10 (6-14) Blood Urea Nitrogen 11 mg/dL (7-20) Creatinine 1.3 mg/dL (0.6-1.0) Estimated GFR (Cockcroft-Gault) 47.5 BUN/Creatinine Ratio 8 (6-20) Glucose Level 106 mg/dL (70-99) Calcium Level 8.2 mg/dL (8.5-10.1) Magnesium Level 2.0 mg/dL (1.8-2.4) Total Bilirubin 0.6 mg/dL (0.2-1.0) Aspartate Amino Transf (AST/SGOT) 36 U/L (15-37) Alanine Aminotransferase (ALT/SGPT) 46 U/L (14-59) Alkaline Phosphatase 169 U/L (46-116) Creatine Kinase 26 U/L (26-192) Total Protein 8.3 g/dL (6.4-8.2) Albumin 2.4 g/dL (3.4-5.0) Albumin/Globulin Ratio 0.4 (1.0-1.7) Urine Collection Type Unknown Urine Color Yellow Urine Clarity Clear Urine pH 6.5 (<5.0-8.0) Urine Specific [place] <=1.005 (1.000-1.030) Urine Protein 30 mg/dL (NEG-TRACE) Urine Glucose (UA) Negative mg/dL (NEG) Urine Ketones (Stick) Negative mg/dL (NEG) Urine Blood Large (NEG) Urine Nitrite Negative (NEG) Urine Bilirubin Negative (NEG) Urine Urobilinogen Dipstick 1.0 mg/dL (0.2 mg/dL) Urine Leukocyte Esterase Moderate (NEG) Urine RBC Tntc /HPF (0-2) Urine WBC >40 /HPF (0-4) Urine Squamous Epithelial Cells Few /LPF Urine Bacteria Many /HPF (0-FEW) Urine Test Negative (NEG) Urine Opiates Screen Pos (NEG) Urine Methadone Screen Neg (NEG) Urine Barbiturates Neg (NEG) Urine Phencyclidine Screen Neg (NEG) Urine Amphetamine/Methamphetamine Neg (NEG) Urine Benzodiazepines Screen Neg (NEG) Urine Cocaine Screen Neg (NEG) Urine Cannabinoids Screen Pos (NEG) Urine Ethyl Alcohol Neg (NEG) Images Images Radiology/Procedures: PROCEDURE: CHEST AP ONLY CHEST AP ONLY Clinical indications: Nausea and vomiting and diarrhea. Patient underwent investigation. Comparison: January 02, 2019. Findings: There is new finding of a nodular lung infiltrate or mass within the lateral right lower lung zone. There is a new finding of right hilar mass or enlarged lymph node. Left lung field is clear. No pleural effusion or pneumothorax is seen. Surgical clips of the left hilum are seen. Heart size and mediastinum are unremarkable. Surgical absence of the posterior left seventh rib is seen. IMPRESSION: New finding of nodular lung infiltrate or mass of the right lower lung zone with associated right hilar mass or lymphadenopathy. PROCEDURE: CT ANGIOGRAPHY CHEST CTA OF THE CHEST WITH AND WITHOUT CONTRAST Clinical indications: Shortness of air. Fevers. Technique: Noncontrast axial localizer was performed. After IV infusion of 60 cc of Omnipaque 350, helical CT scanning of the chest was performed using the CT pulmonary embolism protocol. A coronal MIP reconstruction was generated. PQRS compliance Statement One or more of the following individualized dose reduction techniques were utilized for this study: 1. Automated exposure control 2. Adjustment of the mA and/or kV according to patient size 3. Use of iterative reconstruction technique Comparison: August 04, 2016. FINDINGS: Mediastinal lymphadenopathy is evident. Largest lymph node is seen within the anterior mediastinum measuring 20 mm transversely. Bilateral hilar lymphadenopathy is seen. Largest lymph node on the right side measures 16 mm. Largest lymph node on the left side measures 18 mm. No focal aneurysmal dilatation or dissection of the thoracic aorta is seen. Heart size is normal and no pericardial effusion is seen. No central pulmonary emboli are evident. The finding of right hilar enlargement on the chest x-ray corresponds to a dilated central pulmonary artery. There is a bilobed nodular lung infiltrate within the anterior lateral aspect of the right lower lobe. This measures 37 mm in AP dimension and 30 mm in vertical dimension and 20 mm in transverse dimension. There are some areas which demonstrate fluid like density of 19 Hounsfield units and other areas demonstrate more solid density of 35 Hounsfield units. Therefore, it is possible that this represents a focus of pneumonia rather than a neoplasm. However, short-term chest CT follow-up in 4 weeks is recommended after completion of antibiotic therapy. There is adjacent inflammatory change of the right lower lobe. Linear and nodular lung infiltrates are seen within the posterior segment of the right upper lobe. Similar nodular and linear infiltrates are seen within the superior segment of the left lower lobe. There is an area of cavitation within this infiltrate. More linear-like infiltrate is seen within the more inferior basal segments of the left lower lobe. There is peribronchial and perivascular soft tissue thickening within the left hilum and right hilum and within the right lower lobe. No lytic process is seen. No adrenal mass is seen. However the adrenal glands are not completely seen in this study. IMPRESSION: Bilateral lung infiltrates as discussed above. These may be inflammatory or infectious in nature but a follow-up chest CT in 4 weeks is recommended. Neoplastic disease is in the differential diagnosis. In addition, atypical infection should be considered. There is peribronchovascular soft tissue thickening bilaterally as well. This may be seen with atypical infection or could be seen with sarcoidosis. Bilateral hilar lymphadenopathy is evident and mediastinal lymphadenopathy is evident. There is a prominent central right pulmonary artery. This measures 2 cm in caliber. This could be secondary to pulmonary arterial hypertension or could possibly be related to vasculitis given the soft tissue thickening resulting in aneurysmal dilatation. This is a new finding. Electronically signed by: Breezy Rausch MD (01/17/2020 4:50 PM) [id number] VTE Prophylaxis Ordered VTE Prophylaxis Devices: Yes VTE Pharmacological Prophylaxi: No Assessment/Plan Assessment/Plan Bilateral pneumonia Person under investigation for COVID-19 infection History of methamphetamine use History of endocarditis Positive drug panel for marijuana Normocytic anemia most likely of chronic disease Hyponatremia UTI Plan Admit the patient for COVID-19 investigation Broad-spectrum antibiotics Head of the bed at 30 degrees Encourage incentive spirometry In light of her suspicion for COVID-19 encourage pronation We will give steroids Supplemental oxygen Further recommendations will be based on the clinical course DVT prophylaxis with Lovenox CLARA VAZQUEZ MD Jan 17, 2020 22:28
[2020-01-18] VITALS (7 sets, daily range): BP systolic 104–177; BP diastolic 56–80
[2020-01-18] MEDS: PIPERACILLIN/TAZOBACTAM 3.375 GM in IV NORMAL SALINE 50ML 50 ML IV SCH ×5 (00:33→23:53)
[2020-01-18] MEDS: LORazepam 0.5 MG TABLET PO PRN ×3 (00:33→20:35)
[2020-01-18] MEDS: KETOROLAC 15 MG/ML VIAL. IVP PRN ×3 (02:48→20:35)
[2020-01-18] MEDS: IV NORMAL SALINE 1000ML BAG 1,000 ML IV SCH ×3 (02:49→23:52)
[2020-01-18 08:42] LABS: BASO % 0 % (0-3); EOS % 0 % (0-3); HEMATOCRIT 29.3 % (36.0-47.0); LYMPH # 0.9 x10^3/uL (1.0-4.8); LYMPH % 12 % (24-48); MEAN CORPUSCULAR HEMOGLOBIN 32 pg (25-35); MEAN CORPUSCULAR HGB CONC 34 g/dL (31-37); MEAN CORPUSCULAR VOLUME 93 fL (79-100); MONO # 0.9 x10^3/uL (0.0-1.1); MONO % 12 % (0-9); NEUT # 5.5 x10^3/uL (1.8-7.7); NEUT % 76 % (31-73); PLATELET COUNT 127 x10^3/uL (140-400); RED BLOOD COUNT 3.17 x10^6/uL (3.50-5.40); RED CELL DISTRIBUTION WIDTH 15.5 % (11.5-14.5); WHITE BLOOD COUNT 7.3 x10^3/uL (4.0-11.0)
--- NOTE | 2020-01-18 08:55 | EKG ---
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
[2020-01-18 09:01] LABS: CALCIUM 7.8 mg/dL (8.5-10.1); CREATININE 1.2 mg/dL (0.6-1.0); GFR 52.1; POTASSIUM 3.9 mmol/L (3.5-5.1)
[2020-01-18] MEDS ORDERED: ACETAMINOPHEN 325 MG TABLET. PO PRN (15:45)
--- NOTE | 2020-01-18 15:47 | PDOC ---
[facility] [facility] NOTE Date of Service DOS: DATE: 01/18/20 TIME: 15:40 Chief Complaint Chief Complaint Bilateral pneumonia Person under investigation for COVID-19 infection History of methamphetamine use History of endocarditis Positive drug panel for marijuana Normocytic anemia most likely of chronic disease Hyponatremia UTI Plan Admit the patient for COVID-19 investigation Broad-spectrum antibiotics Head of the bed at 30 degrees Encourage incentive spirometry In light of her suspicion for COVID-19 encourage pronation We will give steroids Supplemental oxygen Further recommendations will be based on the clinical course DVT prophylaxis with Lovenox History of Present Illness History of Present Illness 35-year-old female who certainly looks older than the stated age comes today with a history of more or less 5 days prior to her admission of generalized body aches most of generalized malaise fatigue chills, the patient denies any fever she has not quantified her temperature, denies any exposure to COVID-19 infected persons she denies any headache no loss of taste or smell reported either. Of note is that the patient has a history of methamphetamine abuse and endocarditis but currently denies illicit drug abuse. Urine drug panel was positive for marijuana. Given her respiratory distress and the need of supplemental oxygen we were called to admit the patient. The patient also presents several conc erning factors very likely has COVID-19 infection. She is complaining of chest discomfort due to pleurisy secondary to the bilateral pneumonia that has been reported on CT scanning of her chest. The patient looks acutely ill but hemodynamically stable. I have addressed all her concerns to the best of my abilities. She is mostly complaining of chest discomfort worse with inspiration as expected with pneumonic process. She has mild respiratory distress and accessory muscle use. I have discussed the results of her laboratory findings and imaging studies and the plan of care in detail all of her concerns were addressed to the best of my abilities 08/18/2019 No acute events since admission. Patient is currently in some distress due to multiple body aches and a headache. Patient asked that she does not like Toradol as she would like something stronger. Patient does appear to have subjective fevers, but vital signs show a T-max of 99 Vitals/I&O Vitals/I&O: Vital Signs Date Time Temp Pulse Resp B/P (MAP) Pulse Ox O2 Delivery O2 Flow Rate FiO2 01/18/20 11:00 98.2 86 18 129/75 (93) 100 98.2 01/18/20 08:50 Room Air I & O 01/17/20 01/17/20 01/18/20 15:00 23:00 07:00 Intake Total 1390 ml Balance 1390 ml Physical Exam Physical Exam: GEN.: No apparent distress. Older than the stated age disheveled and chronically ill-appearing alert and oriented. HEENT: Head is normocephalic, atraumatic NECK: Supple. LUNGS: Coarse breath sounds. HEART: RRR, S1, S2 present. Peripheral pulses intact ABDOMEN: Soft, nontender. Positive bowel sounds. EXTREMITIES: Without any cyanosis. NEUROLOGIC: Cranial nerves II to XII intact no motor or sensory deficit appreciated normal speech, normal tone PSYCHIATRIC: Normal affect, normal mood. SKIN: No ulcerations Lungs: Other Labs Labs: Laboratory Tests Test 01/18/20 08:20 White Blood Count 7.3 x10^3/uL (4.0-11.0) Red Blood Count 3.17 x10^6/uL (3.50-5.40) Hemoglobin 10.0 g/dL (12.0-15.5) Hematocrit 29.3 % (36.0-47.0) Mean Corpuscular Volume 93 fL (79-100) Mean Corpuscular Hemoglobin 32 pg (25-35) Mean Corpuscular Hemoglobin Concent 34 g/dL (31-37) Red Cell Distribution Width 15.5 % (11.5-14.5) Platelet Count 127 x10^3/uL (140-400) Neutrophils (%) (Auto) 76 % (31-73) Lymphocytes (%) (Auto) 12 % (24-48) Monocytes (%) (Auto) 12 % (0-9) Eosinophils (%) (Auto) 0 % (0-3) Basophils (%) (Auto) 0 % (0-3) Neutrophils # (Auto) 5.5 x10^3/uL (1.8-7.7) Lymphocytes # (Auto) 0.9 x10^3/uL (1.0-4.8) Monocytes # (Auto) 0.9 x10^3/uL (0.0-1.1) Eosinophils # (Auto) 0.0 x10^3/uL (0.0-0.7) Basophils # (Auto) 0.0 x10^3/uL (0.0-0.2) Sodium Level 139 mmol/L (136-145) Potassium Level 3.9 mmol/L (3.5-5.1) Chloride Level 106 mmol/L (98-107) Carbon Dioxide Level 22 mmol/L (21-32) Anion Gap 11 (6-14) Blood Urea Nitrogen 11 mg/dL (7-20) Creatinine 1.2 mg/dL (0.6-1.0) Estimated GFR (Cockcroft-Gault) 52.1 Glucose Level 115 mg/dL (70-99) Calcium Level 7.8 mg/dL (8.5-10.1) Assessment and Plan Assessmemt and Plan Problems Medical Problems: (1) Bilateral pneumonia Status: Acute (2) Person under investigation for COVID-19 Status: Acute (3) UTI (urinary tract infection) Status: Acute Comment Review of Relevant I have reviewed the following items angel (where applicable) has been applied. Medications: Current Medications Medications (Trade) Dose Ordered Sig/Tex Route PRN Reason Start Time Stop Time Status Last Admin Dose Admin Fentanyl Citrate (Fentanyl 2ml Vial) 50 mcg 1X ONCE IVP 01/17/20 16:00 01/17/20 16:01 DC 01/17/20 15:49 Piperacillin Sod/ Tazobactam Sod 3.375 gm/Sodium Chloride 50 ml @ 100 mls/hr 1X ONCE IV 01/17/20 17:15 01/17/20 17:44 DC 01/17/20 18:59 Levofloxacin/ Dextrose 150 ml @ 100 mls/hr 1X ONCE IV 01/17/20 17:15 01/17/20 18:44 DC 01/17/20 17:22 Morphine Sulfate (Morphine Sulfate) 4 mg 1X ONCE IV 01/17/20 17:15 01/17/20 17:17 DC 01/17/20 17:22 Sodium Chloride 1,000 ml @ 100 mls/hr Q10H IV 01/17/20 18:25 01/18/20 15:00 Acetaminophen (Tylenol) 650 mg PRN Q4HRS PRN PO TEMP OVER 100.4F OR MILD PAIN 01/17/20 18:30 01/17/20 19:31 Lorazepam (Ativan) 0.5 mg PRN Q4HRS PRN PO ANXIETY / AGITATION 01/17/20 18:30 01/18/20 09:51 Piperacillin Sod/ Tazobactam Sod 3.375 gm/Sodium Chloride 50 ml @ 100 mls/hr Q6HRS IV 01/18/20 00:00 01/18/20 11:28 Azithromycin 500 mg/Sodium Chloride 250 ml @ 250 mls/hr Q24H IV 01/17/20 22:00 01/20/20 21:59 01/17/20 22:19 Ketorolac Tromethamine (Toradol 15mg Vial) 15 mg PRN Q6HRS PRN IVP MODERATE PAIN 01/17/20 20:15 01/22/20 20:14 01/18/20 09:51 TROY ARTEAGA MD Jan 18, 2020 15:47
--- NOTE | 2020-01-18 18:01 | NUR ---
SW following. Spoke with RN and reviewed chart. Pt on a regular diet. Pt on room air. Pt on IV Zithromax and IV Zosyn. SW following.
[2020-01-18] MEDS: ENOXAPARIN 40 MG/0.4 ML SYRINGE. SQ SCH (20:34)
[2020-01-18] MEDS: AZITHROMYCIN 500 MG in IV NORMAL SALINE 250ML 250 ML IV SCH (20:39)
[2020-01-19] VITALS (7 sets, daily range): BP systolic 130–141; BP diastolic 76–97
[2020-01-19] MEDS: PIPERACILLIN/TAZOBACTAM 3.375 GM in IV NORMAL SALINE 50ML 50 ML IV SCH ×3 (04:54→17:52)
[2020-01-19] MEDS: LORazepam 0.5 MG TABLET PO PRN ×3 (05:38→21:46)
[2020-01-19] MEDS: KETOROLAC 15 MG/ML VIAL. IVP PRN ×2 (05:38→16:00)
[2020-01-19] MEDS: IV NORMAL SALINE 1000ML BAG 1,000 ML IV SCH ×2 (10:21→21:50)
--- NOTE | 2020-01-19 11:17 | NUR ---
SW following. Spoke with RN and reviewed chart. Called into pt's room. Pt not interested in talking with this SW and stated she is tired. Pt stated she does live with her dad and plans to return home on discharge. Pt remains on IV abx and COVID pending. SW following.
--- NOTE | 2020-01-19 15:41 | PDOC ---
[facility] PROGRESS NOTE Date of Service DOS: DATE: 01/19/20 TIME: 15:39 Chief Complaint Chief Complaint Bilateral pneumonia Concern for right pulmonary nodule UTIfollow-up urine culture sensitivities Person under investigation for COVID-19 infectionnegative results History of methamphetamine use History of endocarditis Positive drug panel for marijuana Normocytic anemia most likely of chronic disease Hyponatremia UTI Plan Admit the patient for COVID-19 investigation Broad-spectrum antibiotics Follow-up blood cultures Head of the bed at 30 degrees Encourage incentive spirometry Supplemental oxygen Further recommendations will be based on the clinical course DVT prophylaxis with Lovenox Disposition: Anticipate discharge in the next 2 midnights Surrogate decision maker is self History of Present Illness History of Present Illness 35-year-old female who certainly looks older than the stated age comes today with a history of more or less 5 days prior to her admission of generalized body aches most of generalized malaise fatigue chills, the patient denies any fever she has not quantified her temperature, denies any exposure to COVID-19 infected persons she denies any headache no loss of taste or smell reported either. Of note is that the patient has a history of methamphetamine abuse and endocarditis but currently denies illicit drug abuse. Urine drug panel was positive for marijuana. Given her respiratory distress and the need of supplemental oxygen we were called to admit the patient. The patient also presents several con cerning factors very likely has COVID-19 infection. She is complaining of chest discomfort due to pleurisy secondary to the bilateral pneumonia that has been reported on CT scanning of her chest. The patient looks acutely ill but hemodynamically stable. I have addressed all her concerns to the best of my abilities. She is mostly complaining of chest discomfort worse with inspiration as expected with pneumonic process. She has mild respiratory distress and accessory muscle use. I have discussed the results of her laboratory findings and imaging studies and the plan of care in detail all of her concerns were addressed to the best of my abilities 08/18/2019 No acute events since admission. Patient is currently in some distress due to multiple body aches and a headache. Patient asked that she does not like Toradol as she would like something stronger. Patient does appear to have subjective fevers, but vital signs show a T-max of 99 Vitals/I&O Vitals/I&O: Vital Signs Date Time Temp Pulse Resp B/P (MAP) Pulse Ox O2 Delivery O2 Flow Rate FiO2 01/19/20 11:06 97.7 96 16 137/80 (99) 100 Room Air 97.7 I & O 01/18/20 01/18/20 01/19/20 15:00 23:00 07:00 Intake Total 640 ml 700 ml 1290 ml Balance 640 ml 700 ml 1290 ml Physical Exam Physical Exam: GEN.: No apparent distress. Older than the stated age disheveled and chronically ill-appearing alert and oriented. HEENT: Head is normocephalic, atraumatic NECK: Supple. LUNGS: Coarse breath sounds. HEART: RRR, S1, S2 present. Peripheral pulses intact ABDOMEN: Soft, nontender. Positive bowel sounds. EXTREMITIES: Without any cyanosis. NEUROLOGIC: Cranial nerves II to XII intact no motor or sensory deficit appreciated normal speech, normal tone PSYCHIATRIC: Normal affect, normal mood. SKIN: No ulcerations Lungs: Other Assessment and Plan Assessmemt and Plan Problems Medical Problems: (1) Bilateral pneumonia Status: Acute (2) Person under investigation for COVID-19 Status: Acute (3) UTI (urinary tract infection) Status: Acute Comment Review of Relevant I have reviewed the following items angel (where applicable) has been applied. TROY ARTEAGA MD Jan 19, 2020 15:41
[2020-01-19] MEDS: ENOXAPARIN 40 MG/0.4 ML SYRINGE. SQ SCH (19:00)
[2020-01-19] MEDS: LACTOBACILLUS RHAMNOSUS GG 1 CAPSULE. PO SCH (21:46)
[2020-01-19] MEDS: AZITHROMYCIN 500 MG in IV NORMAL SALINE 250ML 250 ML IV SCH (21:47)
[2020-01-20] MEDS: PIPERACILLIN/TAZOBACTAM 3.375 GM in IV NORMAL SALINE 50ML 50 ML IV SCH ×4 (00:59→18:00)
[2020-01-20 03:00] VITALS: BP 118/80
[2020-01-20 07:15] VITALS: BP 119/81
[2020-01-20] MEDS: LACTOBACILLUS RHAMNOSUS GG 1 CAPSULE. PO SCH ×2 (08:32→21:00)
[2020-01-20 08:40] LABS: BASO % 1 % (0-3); EOS % 1 % (0-3); HEMATOCRIT 30.3 % (36.0-47.0); HEMOGLOBIN 10.4 g/dL (12.0-15.5); LYMPH # 1.6 x10^3/uL (1.0-4.8); LYMPH % 28 % (24-48); MEAN CORPUSCULAR HEMOGLOBIN 31 pg (25-35); MEAN CORPUSCULAR HGB CONC 34 g/dL (31-37); MEAN CORPUSCULAR VOLUME 92 fL (79-100); MONO # 0.4 x10^3/uL (0.0-1.1); MONO % 6 % (0-9); NEUT # 3.6 x10^3/uL (1.8-7.7); NEUT % 64 % (31-73); PLATELET COUNT 203 x10^3/uL (140-400); RED BLOOD COUNT 3.31 x10^6/uL (3.50-5.40); WHITE BLOOD COUNT 5.6 x10^3/uL (4.0-11.0)
[2020-01-20 08:48] LABS: CALCIUM 8.1 mg/dL (8.5-10.1); CREATININE 1.2 mg/dL (0.6-1.0); GFR 52.1; MAGNESIUM 1.9 mg/dL (1.8-2.4); POTASSIUM 3.7 mmol/L (3.5-5.1)
--- NOTE | 2020-01-20 10:42 | DISCH ---
DISCHARGE INSTRUCTIONS Condition on Discharge Condition on Discharge: Stable Activity After Discharge Activity Instructions for Disc: No restrictions, Activity as tolerated Exercise Instruction after Dis: Progress as tolerated Driving Instructions after Dis: Do not drive Weight Bearing Status after Di: As tolerated Diet after Discharge Diet after Discharge: Regular Diet Texture: Regular Swallowing Supervision: None needed Checks after Discharge Checks after discharge: Check your Temp as needed Treatment/Equipment after DC Adaptive Equipment Issued: None TROY ARTEAGA MD Jan 20, 2020 10:42
[2020-01-20] MEDS ORDERED: LEVO500T59 PO (10:44)
[2020-01-20 11:15] VITALS: BP 120/87
[2020-01-20] MEDS: IV NORMAL SALINE 1000ML BAG 1,000 ML IV SCH (13:18)
--- NOTE | 2020-01-20 15:10 | PDOC3 ---
[facility]-Discharge Summary Date of Admission: Date of Admission: Jan 17, 2020 Date of Discharge: Date of Discharge: Jan 20, 2020 Admission Diagnosis: Admitting Diagnosis: Bilateral pneumonia Person under investigation for COVID-19 infection History of methamphetamine use History of endocarditis Positive drug panel for marijuana Normocytic anemia most likely of chronic disease Hyponatremia UTI Discharge Diagnosis: Discharge Diagnosis: Bilateral pneumonia Concern for right pulmonary nodule UTIfollow-up urine culture sensitivities Person under investigation for COVID-19 infectionnegative results History of methamphetamine use History of endocarditis Positive drug panel for marijuana Normocytic anemia most likely of chronic disease Hyponatremia UTI Hospital Course: Hospital Course: 35-year-old female who certainly looks older than the stated age comes today with a history of more or less 5 days prior to her admission of generalized body aches most of generalized malaise fatigue chills, the patient denies any fever she has not quantified her temperature, denies any exposure to COVID-19 infected persons she denies any headache no loss of taste or smell reported either. Of note is that the patient has a history of methamphetamine abuse and endocarditis but currently denies illicit drug abuse. Urine drug panel was positive for marijuana. Given her respiratory distress and the need of supplemental oxygen we were called to admit the patient. The patient also presents several concerning factors very likely has COVID-19 infection. She is complaining of chest discomfort due to pleurisy secondary to the bilateral pneumonia that has been reported on CT scanning of her chest. The patient looks acutely ill but hemodynamically stable. I have addressed all her concerns to the best of my abilities. She is mostly complaining of chest discomfort worse with inspiration as expected with pneumonic process. She has mild respiratory distress and accessory muscle use. I have discussed the results of her laboratory findings and imaging studies and the plan of care in detail all of her concerns were addr essed to the best of my abilities Patient was admitted for further care for IV antibiotics and pain management. Patient was tolerating diet and her pain was controlled through her out her hospital course. Her urine cultures grew E. coli that was sensitive to Levaquin which she was transitioned to p.o. on her day of discharge. Blood cultures were negative and her antibiotics were transitioned to p.o. a right pulmonary nodule was found on CT in which it was discussed with her that she will need to follow- up with her PCP for repeat imaging. The rest of her hospital course was uneventful Disposition: Disposition/Orders: D/C to Home Activity: Activity: Resume previous activity Medications: Home Meds Active Scripts Levofloxacin (LEVAQUIN) 500 Mg Tablet, 500 MG PO DAILY06 for UTI for 7 Days, #7 TAB Prov:TROY ARTEAGA MD 01/20/20 Naproxen (NAPROSYN) 500 Mg Tablet, 1 TAB PO BID for pain, #20 TAB Prov:JESE WU MD 07/07/19 Discontinued Scripts Benzonatate (TESSALON PERLE) 100 Mg Capsule, 1 CAP PO TID for cough, #21 CAP Prov:JESE WU MD 07/07/19 Oseltamivir Phosphate (TAMIFLU) 75 Mg Capsule, 1 CAP PO BID, #10 CAP Prov:JESE WU MD 07/07/19 Scheduled Levofloxacin (Levaquin), 500 MG PO DAILY06 Naproxen (Naprosyn), 1 TAB PO BID Discontinued Medications Benzonatate (Tessalon Perle), 1 CAP PO TID Oseltamivir Phosphate (Tamiflu), 1 CAP PO BID Total Time: Total Time: Total time spent was 35 minutes in preparing scripts, discharge planning with SWI and RN and preparing this discharge summary Justicifation of Admission Dx: Justifications for Admission: Justification of Admission Dx: Yes TROY ARTEAGA MD Jan 20, 2020 15:09
[2020-01-20 15:15] VITALS: BP 133/90
--- NOTE | 2020-01-20 17:34 | NUR ---
SW following. Spoke with RN and reviewed chart. Plan remains discharge home. Pt remains on IV abx. SW following as needed. Addendum: 01/21/20 at 0911 by ALEISHA FERNANDEZ Pt discharged home on oral medications and no further SW needs at this.
--- NOTE | 2020-01-20 18:25 | NUR ---
Discharge instructions given. Answered questions and concerns. Verbalized understanding. Waiting for ride home. Cont. monitor.
[2020-01-20 19:00] VITALS: BP 99/62
[2020-01-20] MEDS: ENOXAPARIN 40 MG/0.4 ML SYRINGE. SQ SCH (19:00)
--- NOTE | 2020-01-20 21:51 | NUR ---
Discharge Note: [facility] [place] Discharge instructions and discharge home medications reviewed with Patient and a copy given. All questions have been answered and understanding verbalized. The following instructions and handouts were given: home medications Discontinued lines and drains: peripheral IV removed prior to discharge Patient discharged to Home or Self Care with Family Member via Ambulated assisted by staff member
== END 2020-01-20 22:07 | disposition home or self-care (01) | DRG 871 ==
LOC: ER 11:14 → 6 SOUTH 17:51 → 5 NORTH 01-19 20:55
PROVIDERS: ADMIT Internal Medicine; ATTEND Internal Medicine
DX: A41.9 Sepsis, unspecified organism (principal); J15.6 Pneumonia due to other Gram-negative bacteria; N39.0 Urinary tract infection, site not specified; E87.1 Hypo-osmolality and hyponatremia; F41.9 Anxiety disorder, unspecified; B96.20 Unspecified Escherichia coli [E. coli] as the cause of diseases classified elsewhere; Z20.828 Contact with and (suspected) exposure to other viral communicable diseases; D63.8 Anemia in other chronic diseases classified elsewhere; R09.1 Pleurisy; Z86.79 Personal history of other diseases of the circulatory system; Z87.891 Personal history of nicotine dependence; Z79.899 Other long term (current) drug therapy; Z88.8 Allergy status to other drugs, medicaments and biological substances
CPT/HCPCS: 36415; 71045; 71275; 80048; 80053; 80307; 81001; 81025; 82550; 83735; 85025; 85379; 87040; 87077; 87086; 87186; 87449; 93005; 94760; 96361; 96365; 96366; 96367; 96375; 96376; 99285; J0456; J0696; J1650; J1885; J1956; J2270; J2405; J2543; J3010; J7030; J7050; Q9967; G0378; U0003-CS

== ENCOUNTER 2021-05-23 11:52 | Day surgery (SDC) | payer MEDICAID ==
[~2021-05-23 11:52] MED LIST changes: +LEVO500T59 PO
[2021-05-23] MEDS ORDERED: IV RINGERS,LACTATED 1000ML 1,000 ML IV SCH (12:15)
[2021-05-23] MEDS ORDERED: BENZOCAINE ONE 20% MUCOSAL SPRAY. MM (12:15)
[2021-05-23] MEDS ORDERED: fentaNYL PF VIAL 100 MCG/2 ML VIAL IVP PRN (12:15)
[2021-05-23] MEDS ORDERED: PROCHLORPERAZINE 10 MG/2 ML VIAL. IVP PRN (12:15)
[2021-05-23] MEDS ORDERED: LIDOCAINE 2% VISCOUS 15 ML SOLUTION. SWSW ONE (12:15)
[2021-05-23] MEDS ORDERED: MORPHINE SULFATE 2 MG/ML INJ. IVP PRN (12:15)
[2021-05-23] MEDS ORDERED: HYDROmorphone 2 MG/ML INJ. IVP PRN (12:15)
[2021-05-23] MEDS ORDERED: LIDOCAINE 2% TOPICAL JELLY 30GM TUBE. TP ONE (12:15)
[2021-05-23] MEDS ORDERED: LIDOCAINE 2% PF 5 ML VIAL. ONE (12:16)
[2021-05-23] MEDS ORDERED: PROPOFOL 10 MG/ML (20ML) VIAL. IV ONE (12:16)
[2021-05-23] MEDS: fentaNYL PF VIAL 100 MCG/2 ML VIAL IVP PRN ×2 (15:14→16:22)
[2021-05-23 16:35] VITALS: BP 109/64
--- NOTE | 2021-05-23 16:49 | CARD ---
MR#: [id number] Date of Study: 05/23/2021 Ordering Physician: BHAVIN PICHARDO, Referring Physician: Gareth DAVIS: Nidia Lindsay [facility] APPROVED REPORT EXAM: Transesophageal echocardiogram with color flow Doppler. INDICATION Reason For Test : Rule out endocarditis. PROCEDURE After obtaining informed consent, patient underwent transesophageal echo in the PACU. Type of Sedation : General Anesthesia Sedation was administered by Anesthesia. Sedation was achieved with Propofol 400mg intravenously. Transesophageal probe was inserted and advanced into esophagus by Shane Pichardo MD. The DAMEON was performed without complications. Throughout the procedure, the blood pressure, pulse oximetry, cardiac rhythm, and rate were monitored . The patient tolerated the procedure without adverse effects. Recovery from general anesthesia was une ventful and vital signs were stable. LEFT VENTRICLE The left ventricle is normal size. There is normal left ventricular wall thickness. The left ventricu lar systolic function is normal and the ejection fraction is within normal range. Estimated ejection fraction 60%. There is normal LV segmental wall motion. No left ventricle thrombus noted on this stud y. There is no ventricular septal defect visualized. There is no left ventricular aneurysm. There is no mass noted in the left ventricle. RIGHT VENTRICLE The right ventricle is mildly dilated. The right ventricular systolic function is normal. ATRIA The left atrium size is normal. The right atrium is moderately dilated. There is a moderate sized atr ial level defect with bidirectional shunting and agitated saline study was positive for [id number] shunt. There is no thrombus noted in the left atrial appendage. AORTIC VALVE The aortic valve is normal in structure and function. Doppler and Color Flow revealed no significant aortic regurgitation. There is no significant aortic valvular stenosis. MITRAL VALVE The mitral valve is normal in structure and function. There is no evidence of mitral valve prolapse. There is no mitral valve stenosis. TRICUSPID VALVE The tricuspid valve is normal in structure. Doppler and Color Flow revealed severe tricuspid regurgit ation. There is no tricuspid valve prolapse or vegetation. There is no tricuspid valve stenosis. PULMONIC VALVE The pulmonary valve is normal in structure and function. Doppler and Color Flow revealed no pulmonic valvular regurgitation. There is no pulmonic valvular stenosis. GREAT VESSELS The aortic root is normal in size. The ascending aorta is normal in size. There is a prominent eustac hian valve and Chiari network noted which was evident on echocardiogram from 2019 and overall this ap pears unchanged. PERICARDIAL EFFUSION There is no evidence of significant pericardial effusion. There is no pleural effusion. Critical Notification Critical Value: No <Conclusion> The left ventricular systolic function is normal and the ejection fraction is within normal range. E stimated ejection fraction 60%. There is normal LV segmental wall motion. The right ventricle is mildly dilated. The right atrium is moderately dilated. There is no thrombus noted in the left atrial appendage. There is a moderate sized atrial level defect with bidirectional shunting and agitated saline study w as positive for [id number] shunt. Doppler and Color Flow revealed severe tricuspid regurgitation. There is a prominent eustachian valve and Chiari network noted which was evident on echocardiogram fr om 2019 and overall this appears unchanged. Overall, no clear evidence of infective endocarditis on current study. Signed by : Bhavin Pichardo, Electronically Approved : 05/23/2021 16:48:36
== END 2021-05-23 16:55 | disposition home or self-care (01) ==
LOC: ECHO 11:52
PROVIDERS: ATTEND Internal Medicine Cardiovascular Disease
DX: I07.1 Rheumatic tricuspid insufficiency (principal); F41.9 Anxiety disorder, unspecified; Z87.440 Personal history of urinary (tract) infections; Z79.899 Other long term (current) drug therapy; Z98.890 Other specified postprocedural states; Z87.891 Personal history of nicotine dependence; Z88.8 Allergy status to other drugs, medicaments and biological substances
CPT/HCPCS: 93312; 93325; J2704; J3010; J7120